=== PATIENT | male | born 1975 | race Caucasian/White ===

== ENCOUNTER 2018-12-27 17:48 | Inpatient (IN) ==
[2018-12-27] MEDS ORDERED: NS 1,000 ML IV ONE (18:32)
[2018-12-27] MEDS ORDERED: ROCEPHIN 1 GM in NS 50 ML IV ONE (18:33)
[2018-12-27 19:08] LABS: BASO# 0.01 X1000 (0.0-0.2); BASO% 0.1 % (0.0-0.8); HEMATOCRIT 47.5 % (42.0-52.0); HEMOGLOBIN 16.8 g/dL (14.0-18.0); IMM GRAN% 0.5 % (0.0-0.5); LYMPH# 0.43 X1000 (1.2-3.4); LYMPH% 2.2 % (20.5-51.1); MCH 28.2 PG (27-31); MCHC 35.4 g/dL (33-37); MCV 79.7 FL (81-99); MONO% 8.2 % (1.7-9.3); MPV 12.3 FL (7.4-10.4); PLT 182 X1000 (130-400); RBC 5.96 XMIL (4.7-6.1); RDW 14.2 % (11.5-14.5); WBC 19.54 X1000 (4.8-10.8)
[2018-12-27] MEDS ORDERED: VANCOMYCIN 1 GM/NS 1 GM/250 ML IVPB IV ONE (19:18)
[2018-12-27 19:33] LABS: AGAP 15; ALBUMIN 3.7 g/dL (3.5-5.0); ALKALINE PHOSPHATASE 70 U/L (32-122); BUN 18 mg/dL (8-22); CALCIUM 9.5 mg/dL (8.8-10.2); CHLORIDE 99 mmol/L (98-107); COSMO 271; CREATININE 1.3 mg/dL (0.7-1.2); ESTIMATED GFR > 60; GLUCOSE 144 mg/dL (70-104); GOT 15 U/L (10-34); GPT 14 U/L (10-44); POTASSIUM 3.9 mmol/L (3.5-5.1); SODIUM 133 mmol/L (136-145); TCO2 19 mmol/L (25-35); TOTAL BILIRUBIN 0.99 mg/dL (0.20-1.00); TOTAL PROTEIN 7.5 g/dL (6.3-8.3)
[2018-12-27 20:55] LABS: URINE SOURCE CATH
[2018-12-27] MEDS ORDERED: MORPHINE IV ONE (21:01)
[2018-12-27 21:10] LABS: BILIRUBIN URINE NEGATIVE (NEGATIVE); CLARITY TURBID (CLEAR); COLOR GREEN; GLUCOSE URINE NEGATIVE (NEGATIVE); KETONE URINE NEGATIVE (NEGATIVE); URINE BACTERIA 3+ /HFP; URINE EPITHELIAL CELLS <10 /HPF (<10); URINE RBC TNTC /HPF (<10); URINE WBC TNTC /HPF (<10)
[2018-12-27 21:11] LABS: BLOOD URINE LARGE (NEGATIVE); SP GRAVITY URINE 1.015
[2018-12-27 21:12] LABS: LEUKOCYTES URINE LARGE (NEGATIVE); NITRITE URINE NEGATIVE (NEGATIVE); PROTEIN URINE >=300 mg/dL (NEGATIVE); UROBILINOGEN URINE 0.2 EU/dL (0.2-1.0)
--- NOTE | 2018-12-27 22:17 | HISTORY AND PHYSICAL ---
PRIMARY CARE PROVIDER: Dr. Dominick Guillaume. UROLOGIST: Dr. Chang Marquez. CHIEF COMPLAINT: Urinary leakage from suprapubic catheter. Fever and chills. HISTORY OF PRESENT ILLNESS: Mr. Maloney is a 43-year-old male with a history of neurogenic bladder secondary to severe rheumatoid arthritis. He states he had his catheter changed yesterday by Dr. Marquez because of leakage. He went home, he took a nap, and when he woke up, there was nothing in his bag but he was leaking from the insertion site. He states that he had an infection yesterday. He was not given any antibiotics for it. Today he had a low-grade fever of 100.7 degrees with some chills. The ED replaced his suprapubic catheter again and started him on IV antibiotics. His urinalysis is currently pending. His white count is elevated at 19. He does have a slight kidney injury with a creatinine of 1.3. We will admit him overnight for observation status, consult Dr. Marquez in the a.m., and continue with IV antibiotics. PAST MEDICAL HISTORY: 1. Severe rheumatoid arthritis in the past that caused his neurogenic bladder. 2. Neurogenic bladder. 3. Recurrent urinary tract infections. 4. Urinary retention. PAST SURGICAL HISTORY: 1. Shockwave lithotripsy. 2. Endoscopic exams with ureteroscopic and laser lithotripsy of stones. 3. Placement of suprapubic tubes x2. 4. Tonsillectomy. 5. Adenoidectomy. 6. [place] teeth extraction x2. SOCIAL HISTORY: He lives with his family. No tobacco, alcohol, or illicit drug use. PHYSICAL EXAMINATION: VITAL SIGNS: Initial vital signs taken at 1750: Temperature was 98.2 degrees, heart rate 130, respirations 18, blood pressure 106/69. O2 was 94% on room air. He does not have any other documented vital signs. GENERAL: Mr. Maloney is a frail-appearing, 43-year-old male who is lying on the stretcher, in no acute distress. HEENT: Atraumatic, normocephalic. PERRL. NECK: Supple. Trachea midline. CARDIOVASCULAR: S1, S2 appreciated. No murmurs, gallops, or rubs noted. RESPIRATORY: Lung sounds clear bilaterally. GASTROINTESTINAL: Abdomen is flat, soft, nontender. Positive bowel sounds 4 quadrants. GENITOURINARY: Indwelling urethral catheter. NEUROLOGIC: No focal deficits noted. DIAGNOSTIC DATA: None. LABORATORY DATA: White count 19, hemoglobin 16, hematocrit 47, platelet count 182,000. Sodium 133, potassium 3.9, BUN 18, creatinine 1.3, blood glucose of 144. Plasma lactate 1.8. ASSESSMENT AND PLAN: 1. Catheter-associated urinary tract infection. We will continue with IV antibiotics. 2. Malfunctioning suprapubic catheter. It was leaking from the insertion site. His tube was changed yesterday at Dr. Marquez' office. 3. MONICA secondary to malfunctioning catheter continue with hydration recheck labs in am. 4. Mild hyponatremia 4. Severe rheumatoid arthritis that caused neurogenic bladder. Aware. 5. Recurrent urinary tract infections and urinary retention. Aware. 6. Further recommendation to follow physician evaluation, laboratory and diagnostic data. Dictated by MOHAMUD Edmondson for Rafy Lee MD I have performed a face to face diagnostic evaluation. Labs/ Xrays- reviewed. Exam- chest clear, - suprapubic catheter leaking. A/P- Suprapubic catheter malfunction. UTI- Admit, IV abx, urology consult. Dr. Lee cc: MD Chang Alexis MD MTDD
[2018-12-27] MEDS ORDERED: ZOFRAN IV PRN (22:48)
[2018-12-27] MEDS ORDERED: TYLENOL PO PRN (22:48)
[2018-12-27] MEDS ORDERED: NORCO-7.5 PO PRN (22:48)
[2018-12-27] MEDS ORDERED: NS 1,000 ML IV SCH (22:48)
[2018-12-27] MEDS: LEVAQUIN 500 MG/D5W 500 MG/100 ML IVPB IV SCH (23:38)
[2018-12-27] MEDS: MYRBETRIQ E.R. PO SCH (23:58)
[2018-12-28] MEDS ORDERED: CALMOSEPTINE OINTMENT TOP PRN (00:57)
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
[2018-12-28 06:56] LABS: BASO# 0.01 X1000 (0.0-0.2); BASO% 0.1 % (0.0-0.8); EOS# 0.06 X1000 (0.0-0.7); EOS% 0.4 % (0.0-10.0); HEMATOCRIT 43.1 % (42.0-52.0); HEMOGLOBIN 15.2 g/dL (14.0-18.0); IMM GRAN# 0.02 X1000 (0.0-0.04); IMM GRAN% 0.1 % (0.0-0.5); LYMPH# 0.55 X1000 (1.2-3.4); LYMPH% 4.1 % (20.5-51.1); MCH 28.6 PG (27-31); MCHC 35.3 g/dL (33-37); MCV 81.2 FL (81-99); MONO# 0.97 X1000 (0.11-0.59); MONO% 7.2 % (1.7-9.3); MPV 12.5 FL (7.4-10.4); NEUT# 11.77 X1000 (1.4-6.5); NEUT% 88.1 % (42.2-75.2); PLT 160 X1000 (130-400); RBC 5.31 XMIL (4.7-6.1); RDW 14.2 % (11.5-14.5); WBC 13.38 X1000 (4.8-10.8)
[2018-12-28 07:13] LABS: AGAP 10; BUN 14 mg/dL (8-22); CALCIUM 8.5 mg/dL (8.8-10.2); CHLORIDE 102 mmol/L (98-107); COSMO 267; CREATININE 0.9 mg/dL (0.7-1.2); ESTIMATED GFR > 60; GLUCOSE 97 mg/dL (70-104); POTASSIUM 3.6 mmol/L (3.5-5.1); SODIUM 133 mmol/L (136-145); TCO2 21 mmol/L (25-35)
[2018-12-28 07:44] LABS: LYMPHS 2 % (21-51); MONO 12 % (1-9); SEGS 86 % (42-75)
[2018-12-28] MEDS: ZANAFLEX PO SCH ×3 (08:16→21:57)
[2018-12-28] MEDS: PRINIVIL PO SCH (08:16)
[2018-12-28] MEDS: LAMICTAL PO SCH (08:16)
[2018-12-28] MEDS: CALMOSEPTINE OINTMENT TOP SCH ×2 (09:00→13:00)
[2018-12-28] MEDS: UROGESIC-BLUE PO SCH (10:00)
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
--- NOTE | 2018-12-28 13:26 | Diag Imaging Result Doc PS360 ---
MRI BRAIN W/O CONTRAST - 12/28/2018 INDICATION: Upper motor neuron signs in lower extremities COMPARISON: None FINDINGS: There is no area of restricted diffusion. The ventricles and sulci are normal in size and contour. No intracranial mass or hemorrhage. Midline structures including the optic chiasm and pituitary are normal. IMPRESSION: Negative exam. Electronically signed by Nicola Gerard 12/28/2018 1:23 PM
[2018-12-28] MEDS: MERREM 500 MG in NS 50 ML IV SCH ×2 (15:20→23:29)
--- NOTE | 2018-12-28 20:23 | CONSULTATION ---
DATE OF CONSULTATION: 12/28/2018 ATTENDING AND REFERRING PHYSICIAN: Soha. HISTORY OF PRESENT ILLNESS: This 43-year-old male was admitted with a febrile urinary tract infection. He has a long history of a neurologic problem that he states is due to severe rheumatoid arthritis. He states he was told this by a physician in [place], [place]. The patient initially wore a Evans catheter, but this eroded through the ventral penile shaft to cause iatrogenic hypospadias. He had a suprapubic tube placed several years ago, and has been undergoing monthly exchanges. It was last changed yesterday and irrigated without difficulty after the change, and was draining when he left the office. The patient states he went to sleep and when he woke up, he was having discomfort in the pelvic area and the catheter was not draining. He states he developed a fever to 102 degrees. He was seen in the emergency room and was admitted. The patient's urine culture is pending. His preliminary blood culture is growing gram-negative rods. The patient was started on IV antibiotics and states he feels much better. The patient had a CT scan several months ago that revealed small bilateral nonobstructing renal stones and 2 stones in the bladder. He was going to be scheduled for stone removal. PAST MEDICAL HISTORY: 1. Severe rheumatoid arthritis by history. 2. Neurogenic bladder, with severe urge incontinence. 3. Recurrent urinary infections. CURRENT MEDICATIONS: Include: 1. Baclofen. 2. Oxybutynin. PAST SURGICAL HISTORY: 1. Extracorporeal shockwave lithotripsy. 2. Cystoscopic exam with ureteroscopy and basket extraction of stones. 3. Placement of a suprapubic tube x2. 4. Tonsillectomy. 5. [place] teeth extraction. SOCIAL HISTORY: No tobacco or alcohol use. ALLERGIES: None. REVIEW OF SYSTEMS: He denies any problems with heart disease, hypertension, diabetes, strokes, seizures, pulmonary, or bowel problems. PHYSICAL EXAMINATION: General: A very thin, age apparent, normally developed, white male, oriented in all ways and cooperative. HEENT: Normal for age. Lungs: Clear. Cardiovascular: Regular rate and rhythm. Abdomen: Flat, soft, nontender. No hepatosplenomegaly or mass. Normal bowel sounds. Well healed scars in the midline above the pubic bone. Suprapubic tube in place and appears to be draining. Genitourinary: Circumcised male with distal shaft hypospadias. Both testes down and palpably normal. There are no inguinal hernias. Rectal: Exam is deferred until surgery. Extremities: Lower extremities with bilateral muscular atrophy. No cyanosis, clubbing, or edema. Neurologic: He currently cannot walk, but can move his extremities. LABORATORY EVALUATION: He has a white count of 13.38, down from 19.5, hemoglobin is 15.2, hematocrit 43.1, and platelets are 160,000. Serum sodium is 133, potassium 3.6, chloride 102, bicarb 21, BUN 14, creatinine 0.9. Urine culture is pending. Blood culture is growing a gram- negative david. IMPRESSION: 1. Neurogenic bladder. 2. Indwelling suprapubic tube that appears to be draining at present; however, it is a 14-Portuguese tube. 3. Bladder stones. 4. Small bilateral nonobstructing kidney stones. 5. Febrile urinary tract infection, with gram-negative david bacteremia. PLAN: 1. Cystoscopic exam to ensure the suprapubic tube in place, and replace the 14-Portuguese tube with an 18-Portuguese catheter. 2. Cystolitholapaxy (remove bladder stones). This was discussed with the patient. The planned procedure, benefits versus risks, possible complications including bleeding, infection, need for further surgery, and not being able to remove the bladder stones were discussed. He seems to understand and desires to proceed. He understands that myself or Dr. Hopkins will do the procedure. cc: Chang Marquez MD
[2018-12-28] MEDS: LEVAQUIN 500 MG/D5W 500 MG/100 ML IVPB IV SCH (21:57)
[2018-12-28] MEDS: MYRBETRIQ E.R. PO SCH (21:57)
[2018-12-29] MEDS: CALMOSEPTINE OINTMENT TOP SCH ×4 (03:16→17:27)
[2018-12-29] MEDS: MERREM 500 MG in NS 50 ML IV SCH (06:00)
[2018-12-29 07:01] LABS: BASO# 0.02 X1000 (0.0-0.2); BASO% 0.3 % (0.0-0.8); EOS# 0.11 X1000 (0.0-0.7); EOS% 1.5 % (0.0-10.0); HEMATOCRIT 41.2 % (42.0-52.0); HEMOGLOBIN 14.4 g/dL (14.0-18.0); IMM GRAN# 0.02 X1000 (0.0-0.04); IMM GRAN% 0.3 % (0.0-0.5); LYMPH# 0.93 X1000 (1.2-3.4); LYMPH% 12.4 % (20.5-51.1); MCH 28.7 PG (27-31); MCV 82.2 FL (81-99); MONO# 0.73 X1000 (0.11-0.59); MONO% 9.8 % (1.7-9.3); MPV 12.1 FL (7.4-10.4); NEUT# 5.67 X1000 (1.4-6.5); NEUT% 75.7 % (42.2-75.2); PLT 137 X1000 (130-400); RBC 5.01 XMIL (4.7-6.1); RDW 14.2 % (11.5-14.5); WBC 7.48 X1000 (4.8-10.8)
[2018-12-29 08:02] LABS: AGAP 9; ALBUMIN 2.7 g/dL (3.5-5.0); BUN 11 mg/dL (8-22); CALCIUM 8.4 mg/dL (8.8-10.2); CHLORIDE 100 mmol/L (98-107); COSMO 259; CREATININE 0.8 mg/dL (0.7-1.2); ESTIMATED GFR > 60; GLUCOSE 82 mg/dL (70-104); PHOSPHORUS 1.7 mg/dL (2.7-4.5); POTASSIUM 3.5 mmol/L (3.5-5.1); SODIUM 130 mmol/L (136-145); TCO2 21 mmol/L (25-35)
[2018-12-29] MEDS ORDERED: ROCEPHIN 1 GM in NS 50 ML IV SCH (08:15)
[2018-12-29] MEDS: LAMICTAL PO SCH ×2 (09:38→10:12)
[2018-12-29] MEDS: ROCEPHIN 2 GM in NS 50 ML IV SCH (10:11)
[2018-12-29] MEDS: UROGESIC-BLUE PO SCH (10:12)
[2018-12-29] MEDS: PRINIVIL PO SCH (10:12)
[2018-12-29] MEDS: ZANAFLEX PO SCH ×3 (10:12→20:36)
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
[2018-12-29] MEDS ORDERED: FENTANYL ONE (10:32)
[2018-12-29] MEDS ORDERED: DIPRIVAN 1% ONE (10:32)
[2018-12-29] MEDS ORDERED: VERSED ONE (11:01)
[2018-12-29] MEDS ORDERED: XYLOCAINE-MPF 2% ONE (11:17)
[2018-12-29] MEDS ORDERED: NEO-SYNEPHRINE ONE (11:17)
[2018-12-29] MEDS ORDERED: DEMEROL ONE (12:09)
--- NOTE | 2018-12-29 13:37 | Diag Imaging Result Doc PS360 ---
EXAM: RETROGRADES 2 OR 3 FILMS 12/29/2018 HISTORY: BILATERAL RETROGRADES, BLADDER STONE TECHNIQUE: Retrograde pyelogram 15 images, 14 seconds fluoroscopy time, 0.14 mGy. COMMENT: There is retrograde injection of both ureters. There is no evidence of obstruction or filling defect. Both sides appear to drain appropriately. IMPRESSION: No evidence of obstruction or mucosal abnormality. Electronically signed by Moshe Hunt 12/29/2018 1:35 PM
[2018-12-29] MEDS: MYRBETRIQ E.R. PO SCH (20:35)
--- NOTE | 2018-12-30 00:02 | OPERATIVE NOTE ---
PROCEDURE DATE: 12/29/2018 PREOPERATIVE DIAGNOSES: 1. Urinary tract infection. 2. Malfunctioning suprapubic tube. 3. Bladder stones POSTOPERATIVE DIAGNOSES: 1. Urinary tract infection. 2. Malfunctioning suprapubic tube. 3. Bladder stones PROCEDURES PERFORMED: 1. Cystoscopy 2. Cystolitholapaxy 3. Bilateral retrograde pyelograms 4. Exchange of suprapubic tube. SURGEON: Joseluis Hopkins MD. MACHINE OPERATOR REPLANTER: None. COMPLICATIONS: None. ESTIMATED BLOOD LOSS: Minimal. DRAINS: An 18-Namibian suprapubic tube. SPECIMENS REMOVED: Bladder stones. INDICATIONS FOR PROCEDURE: Mr. Maloney is a 43-year-old male with history of rheumatoid arthritis which has led to a neurogenic bladder. The patient has been managed by Dr. Marquez with indwelling suprapubic tube. The patient had his catheter exchanged this week and did not have any drainage from the catheter after placement. The patient developed abdominal distention and pain and presented to the emergency room for evaluation, at which time his suprapubic tube was exchanged for a smaller catheter. The patient was found to have an elevated white blood cell count with a urinalysis that was positive for bacteria. The patient is admitted to the hospital for IV antibiotics, and blood and urine cultures have grown bacteria. In discussion with the patient it was recommend to procedure to the operating room to remove bladder stones that were seen on previous CT scan and to exchange his suprapubic tube. Risks, benefits, and alternatives were discussed with the patient, he elected to proceed. DESCRIPTION OF PROCEDURE: The patient patient was brought to the operating room. He underwent general anesthesia with LMA placement and was on appropriate culture specific antibiotics. Patient was placed into a dorsal lithotomy position and prepped and draped in appropriate fashion. A preop timeout was performed with all parties in agreement. On external inspection, patient had a hypospadiac appearance of his urethra with glanular hypospadias. A 21F cystourethroscope was inserted and showed normal caliber urethra. In the penile and bulbar urethra there was significant inflammation and what almost appeared like a false passage, was able to transverse and posterior urethra was normal. Patient had a small prostate and on advancement of the scope transversed easily all the way up into the bladder itself. The entirety of the bladder was inspected with a large amount of sediment present, there was a bullous edema and both ureteral orifices were very difficult to see. The bladder was cycled multiple times, stone was able to be seen within the base of the bladder, only 1 stone was visualized initially. Multiple diverticulum and cellules were seen. Ultimately the residual stones were seen within a diverticulum on the right portion of the bladder. The suprapubic tube was seen coming through the anterior bladder surface with the balloon inflated. The patient has been having good drainage through the catheter the last several days. After inspecting the bladder multiple times, a 500 micron fiber was then passed through the scope and the stones were then fragmented into small pieces and extracted through the scope as well as with the use of a Janet syringe. Once all the stone fragments were removed, attention was then placed to performing bilateral retrograde pyelogram. Starting on the left the ureteral orifice was able to be visualized, and the open- ended catheter was able to be advanced into the left ureteral orifice. This was injected with Omnipaque which outlined a normal ureter with no evidence of obstruction, and a decompressed collecting system with delicate calyces. The open-ended catheter was removed and good drainage was seen from the collecting system. Attention was then placed to the right side. Due to the patient's anatomy an abnormal appearance of the right ureteral orifice, it was difficult to cannulate with the open-ended catheter alone. Ultimately a wire was used through the scope and able to cannulate the right ureteral orifice and the open-ended catheter was passed over the wire into the UO. Omnipaque was then injected which outlined a normal ureter with no evidence of obstruction or filling defect. The catheter was removed and good drainage was seen from the collecting system. There were some erythematous areas present at the top portion of the bladder on the posterior wall, these appeared to be related to infection. No obvious papillary lesions were seen in the bladder. After inspection of the bladder, attention was placed to exchanging the suprapubic. The 14-Namibian catheter was deflated and removed, and a new 18- Namibian catheter was easily inserted into the bladder with good drainage. I then performed cystoscopy to ensure that it was present within the bladder itself, at which time the balloon was present on the anterior wall with good drainage seen through the catheter itself, it was placed to gravity drainage. The patient's bladder was completely drained. The patient was awoken and was taken to recovery in stable condition. He will be transferred back to the floor. cc: Joseluis Hopkins MD MTDD
[2018-12-30 06:30] LABS: BASO# 0.01 X1000 (0.0-0.2); BASO% 0.2 % (0.0-0.8); EOS# 0.09 X1000 (0.0-0.7); EOS% 1.7 % (0.0-10.0); HEMATOCRIT 41.1 % (42.0-52.0); HEMOGLOBIN 14.7 g/dL (14.0-18.0); LYMPH# 1.14 X1000 (1.2-3.4); MCH 28.8 PG (27-31); MCHC 35.8 g/dL (33-37); MCV 80.4 FL (81-99); MONO# 0.48 X1000 (0.11-0.59); MONO% 8.8 % (1.7-9.3); MPV 11.9 FL (7.4-10.4); NEUT# 3.71 X1000 (1.4-6.5); NEUT% 68.3 % (42.2-75.2); PLT 170 X1000 (130-400); RBC 5.11 XMIL (4.7-6.1); WBC 5.43 X1000 (4.8-10.8)
[2018-12-30 06:58] LABS: AGAP 12; ALB/GLOB RATIO 0.8; ALKALINE PHOSPHATASE 73 U/L (32-122); BUN 6 mg/dL (8-22); CALCIUM 8.8 mg/dL (8.8-10.2); CHLORIDE 99 mmol/L (98-107); COSMO 264; CREATININE 0.7 mg/dL (0.7-1.2); ESTIMATED GFR > 60; GLUCOSE 93 mg/dL (70-104); GOT 22 U/L (10-34); GPT 20 U/L (10-44); POTASSIUM 3.4 mmol/L (3.5-5.1); SODIUM 133 mmol/L (136-145); TCO2 22 mmol/L (25-35); TOTAL BILIRUBIN 0.65 mg/dL (0.20-1.00); TOTAL PROTEIN 6.7 g/dL (6.3-8.3)
[2018-12-30] MEDS: UROGESIC-BLUE PO SCH (08:34)
[2018-12-30] MEDS: ZANAFLEX PO SCH (08:34)
[2018-12-30] MEDS: ROCEPHIN 2 GM in NS 50 ML IV SCH ×2 (08:34→10:21)
[2018-12-30] MEDS: LAMICTAL PO SCH (08:34)
[2018-12-30] MEDS: PRINIVIL PO SCH (08:34)
[2018-12-30] MEDS: CALMOSEPTINE OINTMENT TOP SCH ×2 (08:43→13:30)
[2018-12-30] MEDS ORDERED: LEVAQUIN PO SCH (09:00)
[2018-12-30 11:55] VITALS: BP 99/56
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
== END 2018-12-30 16:00 | disposition home health service (06) | DRG 698 ==
LOC: ED 17:48 → 4N 17:48 → SUATTDRO 21:50
PROVIDERS: ATTEND Internal Medicine
CPT/HCPCS: 70551; 74420; 80048; 80053; 80069; 81001; 82306; 82360; 83605; 85025; 87040; 87077; 87088; 87186; 88300; 94761; 94799; 96365; 96367; 96375; 99285; A9270; J0696; J1956; J2175; J2185; J2250; J2270; J2370; J3010; J3370; J7030; Q9966; Q9967

== ENCOUNTER 2019-07-11 16:21 | Inpatient (IN) ==
[2019-07-11] MEDS ORDERED: ZOFRAN LIQUID PO ONE (16:27)
[2019-07-11] MEDS ORDERED: ZOFRAN IM ONE (16:27)
[2019-07-11] MEDS ORDERED: NS 1,000 ML IV ONE ×4 (16:27→19:50)
[2019-07-11] MEDS ORDERED: ZOFRAN IV ONE (16:42)
[2019-07-11 16:55] LABS: BE -0.3 mmoll (-3.0-3.0); BLOOD TYPE ARTERIAL; HCO3-(ACT) 24.5 mmoll (20.0-26.0); METHB 1.3 % (0.0-1.5); O2(CT) 23.2 mL/dL (15.0-23.0); O2HB 93.7 % (95.0-99.0); PCO2(98.6) 25 mmHg (35-45); PO2(98.6) 76 mmHg (60-100); SAMPLE BLOOD; SAO2 98.5 % (95.0-100.0); THB 17.6 g/dL (11.5-17.4); pH(98.6) 7.52 (7.35-7.45)
[2019-07-11 16:57] LABS: ALLEN TEST YES; MODALITY CANNULA
[2019-07-11 17:12] LABS: BASO# 0.01 X1000 (0.0-0.2); BASO% 0.5 % (0.0-0.8); EOS# 0.03 X1000 (0.0-0.7); EOS% 1.4 % (0.0-10.0); HEMATOCRIT 49.1 % (42.0-52.0); HEMOGLOBIN 16.4 g/dL (14.0-18.0); LYMPH# 0.48 X1000 (1.2-3.4); LYMPH% 22.5 % (20.5-51.1); MCH 28.5 PG (27-31); MCHC 33.4 g/dL (33-37); MCV 85.4 FL (81-99); MONO# 0.04 X1000 (0.11-0.59); MONO% 1.9 % (1.7-9.3); MPV 12.1 FL (7.4-10.4); NEUT# 1.57 X1000 (1.4-6.5); NEUT% 73.7 % (42.2-75.2); PLT 138 X1000 (130-400); RBC 5.75 XMIL (4.7-6.1); RDW 14.2 % (11.5-14.5); WBC 2.13 X1000 (4.8-10.8)
[2019-07-11 17:26] LABS: AGAP 14; ALBUMIN 4.5 g/dL (3.5-5.0); ALKALINE PHOSPHATASE 77 U/L (32-122); BUN 11 mg/dL (8-22); CALCIUM 10.2 mg/dL (8.8-10.2); CHLORIDE 102 mmol/L (98-107); CK PROFILE 122 U/L (24-204); COSMO 280; CREATININE 1.3 mg/dL (0.7-1.2); ESTIMATED GFR > 60; GLUCOSE 95 mg/dL (70-104); GOT 15 U/L (10-34); GPT 13 U/L (10-44); LIPASE 30 U/L (13-60); MAGNESIUM 1.2 mg/dL (1.5-2.7); POTASSIUM 4.5 mmol/L (3.5-5.1); SODIUM 141 mmol/L (136-145); TCO2 25 mmol/L (25-35)
--- NOTE | 2019-07-11 17:34 | Diag Imaging Result Doc PS360 ---
CHEST-PORTABLE - 07/11/2019 INDICATION: SOB COMPARISON: None FINDINGS: There are extensive bilateral fine interstitial infiltrates. Heart size and pulmonary vascularity is normal. No pneumothorax or pleural effusion. IMPRESSION: Extensive atypical infiltrates. This may be infectious, inflammatory, or due to an inhaled exposure. Electronically signed by Nicola Gerard 07/11/2019 5:32 PM
--- NOTE | 2019-07-11 17:35 | Diag Imaging Result Doc PS360 ---
KUB ABDOMEN - 07/11/2019 INDICATION: N/V COMPARISON: None FINDINGS: There is a nonobstructive bowel gas pattern. No free air or abdominal calcifications. IMPRESSION: No acute disease. Electronically signed by Nicola Gerard 07/11/2019 5:32 PM
[2019-07-11] MEDS ORDERED: MAGNESIUM SULFATE 1 GM/D5W 1 GM/100 ML IVPB IV ONE (17:44)
[2019-07-11] MEDS ORDERED: NS 1,000 ML ONE (17:50)
[2019-07-11] MEDS ORDERED: VANCOMYCIN 1 GM/NS 1 GM/250 ML IVPB IV ONE (18:07)
[2019-07-11] MEDS ORDERED: MAXIPIME 2 GM in NS 100 ML IV ONE (18:07)
[2019-07-11] MEDS ORDERED: TYLENOL PO ONE (18:10)
[2019-07-11 18:20] LABS: INFLUENZA A NEGATIVE (NEGATIVE); INFLUENZA B NEGATIVE (NEGATIVE)
[2019-07-11 18:31] LABS: INR 1.06; PROTIME 14.4 Seconds (11.0-16.0)
[2019-07-11 18:32] LABS: PTT 28.2 Seconds (22.3-41.8)
--- NOTE | 2019-07-11 18:57 | EKG Report ---
Test Performed on : 07/11/2019 5:33:49 PM Test Reason : CP Blood Pressure : / mmHG Vent. Rate : 122 BPM Atrial Rate : 122 BPM P-R Int : 126 ms QRS Dur : 088 ms QT Int : 292 ms P-R-T Axes : 062 -18 060 degrees QTc Int : 416 ms Sinus tachycardia. Otherwise normal ECG When compared with ECG of 22-SEP-2018 14:27, Vent. rate has increased BY 50 BPM Unconfirmed Result
--- NOTE | 2019-07-11 19:32 | Diag Imaging Result Doc PS360 ---
CT ANGIOGRM PULMONARY ARTERIES - 07/11/2019 INDICATION: SUDDENT SOB/NO WBC/ELEVATED LACTATE/CXR WITH EXTEN TECHNIQUE: Axial CT images were obtained after administering intravenous contrast. Coronal MIP images were generated. COMPARISON: Previous chest x-ray FINDINGS: There is no adenopathy. Heart and great vessels are normal. No pulmonary embolism. Upper abdominal images are grossly unremarkable. There are severe diffuse bilateral infiltrates. No pneumothorax or pleural effusion. Bones are intact. IMPRESSION: Negative for pulmonary embolism. Extensive bilateral infiltrates are indeterminate. These are compatible with severe pneumonia, pulmonary edema, inflammatory disease, or inhalational exposure. This exam was performed using automated exposure control, adjustment of mA or kV according to patient size, and/or use of iterative reconstruction technique Electronically signed by Nicola Gerard 07/11/2019 7:29 PM
--- NOTE | 2019-07-11 19:47 | PROVIDER DOCUMENTATION ---
This chart was entered by Veronica Tran Scribe, acting as scribe for Alesha Chadwick MD. HPI-Respiratory General - General Chief Complaint: SEPSIS ALERT - P Stated Complaint: SOB Time Seen by Provider: 07/11/19 16:24 Source: patient, EMS (first response) Allergies/Adverse Reactions: Patient Allergies Allergy/AdvReac Type Severity Reaction Status Date / Time No Known Allergies Allergy Verified 12/27/18 19:03 Home Medications: Home Medication List Medication Instructions Recorded Confirmed Last Taken Type Lamotrigine 25 mg PO QAM 07/28/15 12/27/18 12/27/18 History Mirabegron [Myrbetriq] 50 mg PO HS 08/19/15 12/27/18 12/26/18 History LISINOpril [Prinivil] 5 mg PO DAILY 09/22/18 12/27/18 12/27/18 History Methen/Na Phos/Meth Blue/Hyos 1 each PO DAILY 09/22/18 12/27/18 12/27/18 History [Urogesic-Blue] Tizanidine HCl 6 mg PO TID 09/22/18 12/27/18 12/27/18 History Cephalexin [Keflex] 500 mg PO BID #20 cap 12/30/18 Unknown Rx Levofloxacin [Levaquin] 250 mg PO DAILY #7 tab 12/30/18 Unknown Rx Cephalexin [Keflex] 500 mg PO BID #14 cap 05/04/19 Unknown Rx Prednisone 20 mg PO DIRECTED #18 tab 05/04/19 Unknown Rx - History of Present Illness-Resp Nature of Presenting Problem: 43 yowm presents to the ed via ems with c/o sob, tremors, nausea and vomiting acute onset 1 hr LUM[employer] HAND[employer]. pt is pale and diaphoretic and looks ill in appeaance Quality of Pain: reports: aching Severity in ED: reports: moderate Onset/Duration: reports: 1 hour ago Timing: reports: still present, constant Exposure: reports: unknown cause Cough Quality/Degree: reports: no cough Episode Frequency: occasional episodes Current Respiratory Medication Therapy: Initiated see nurses note Modifying Factors: worse with: exertion Associated Symptoms: reports: fever/chills (denies fever but has chhills), shortness of breath, sweaty, other (n/v). denies: chest pain/soreness, cough, dizziness, wheezing Similar Symptoms Previously?: Yes Recently seen or treated by another doctor?: No Review of Systems - Adult - REVIEW OF SYSTEMS - ADULT Constitutional: reports: see HPI, chills. denies: fever Eyes: reports: no symptoms reported Ears, Nose, Mouth & Throat: reports: no symptoms reported Cardiovascular: denies: chest pain, palpitations, syncope Respiratory: reports: shortness of breath. denies: cough, wheezing Gastrointestinal: reports: nausea, vomiting. denies: abdominal pain, diarrhea Genitourinary: reports: no symptoms reported Musculoskeletal: denies: back pain, neck pain Integumentary: reports: no symptoms reported Neurological: denies: dizziness/vertigo, headache/migraines Psychiatric: reports: no symptoms reported Endocrine: reports: no symptoms reported Hematologic/Lymphatic: reports: no symptoms reported Allergic/Immunologic: reports: no symptoms reported All Other Systems: Reviewed and Negative Past History - Adult - PAST MEDICAL HISTORY-ADULT Review of Records: reports: Old Records Reviewed, Nursing Assessment Review, Medications Reviewed, Social history reviewed & non-contributory. Major Childhood Illnesses: reports: denies history Cardiovascular: reports: HTN Respiratory: reports: denies history Obstetrical/Gynecological: reports: denies history Genitourinary: reports: kidney stones, other (indwelling zambrano cath) Musculoskeletal: reports: arthritis, other (RA ) Hand Dominance: Right Handed Neurological: reports: other (tremors) Psychiatric: reports: denies history Endocrine/Immune: reports: denies history Other Conditions: reports: denies history - PRIOR SURGERIES/PROCEDURES Surgical/Procedure History: reports: other ( surgery to repair traumatic cath) - IMMUNIZATION STATUS Childhood Immunizations: See Nurse Assessment Flu Vaccine: See Nurse Assessment - FAMILY HISTORY Family History: reviewed, not pertinent - SOCIAL HISTORY Smoking: cigarettes, less than 1 pack/day Provider spent 3-5 mins advising pt. on dangers of tobacco.: Discussed manners to quit use, and f/u contacts for add'l counseling. Substance Use: alcohol Alcohol Use Frequency: occasionally Number of drinks per typical drinking period:: 3-4 drinks Living Situation: family Physical Exam-General - PHYSICAL EXAM-ADULT Initial Vital Signs Reviewed: Yes - CONSTITUTIONAL General Appearance: alert, mild distress. negative: appears well (ill a ppearaing) - EYES Eyes: PERRL/EOMI, pink conjunctivae - HEAD, EARS, NOSE, MOUTH & THROAT HENMT: moist mucous membranes, normal ENT inspection - NECK Neck: non-tender, full range of motion, supple, normal inspection - RESPIRATORY Respiratory: chest non-tender, lungs clear, normal breath sounds, increased rate (24). negative: crackles, rales, rhonchi - CARDIOVASCULAR Cardiovascular: normal peripheral pulses, tachycardia (137), other (o2 @ 92 RA) - CHEST (BREASTS) Chest/Breast: deferred - GASTROINTESTINAL (ABDOMEN) Abdominal Exam: normal bowel sounds, non tender, soft, other (c/o nausea) - GENITOURINARY Male Genitalia: deferred Rectal Exam: deferred Hemoccult Exam: deferred - LYMPHATIC Lymphatic: no adenopathy - MUSCULOSKELETAL Back Exam: normal inspection, no CVA tenderness, no vertebral tenderness Extremity: normal range of motion, non-tender, normal inspection - SKIN Integumentary: diaphoresis, pallor - NEUROLOGIC Neurologic: grossly normal, other (tremor) - PSYCHIATRIC Psych/Mental Status: normal mood/affect, normal thought content, normal thought process, oriented x 3 Progress - PLAN OF CARE/RESULTS Progress/Plan/Lab Results: Vital Signs - 8 hr 07/11/19 16:15 07/11/19 16:23 07/11/19 18:09 Temperature 99.6 F 103.2 F H Pulse Rate 137 H Respiratory Rate 24 Blood Pressure 121/74 O2 Sat by Pulse Oximetry 96 92 L 07/11/19 18:44 07/11/19 19:13 Temperature 99.3 F Pulse Rate 119 H Respiratory Rate 23 Blood Pressure 107/58 O2 Sat by Pulse Oximetry 89 L 96 Laboratory Results - last 24 hr 07/11/19 07/11/19 07/11/19 16:35 16:50 16:50 WBC RBC Hgb Hct MCV MCH MCHC RDW Std Deviation Plt Count MPV Immature Gran % (Auto) Neut % (Auto) Lymph % (Auto) Turner % (Auto) Eos % (Auto) Baso % (Auto) Immature Gran # (Auto) Neut # (Auto) Lymph # (Auto) Turner # (Auto) Eos # (Auto) Baso # (Auto) PT INR PTT (Actin FS) D-Dimer, Quantitative > 20.00 H Specimen Type ARTERIAL Sample Site L RADIAL pH 7.52 H pCO2 25 L pO2 76 HCO3 24.5 Base Excess -0.3 Oxyhemoglobin 93.7 L ABG O2 Sat (Calculated) 23.2 H ABG O2 Saturation 98.5 ABG Carboxyhemoglobin 3.60 H ABG Methemoglobin 1.3 Zhang Test YES A-a O2 Difference 121.0 Total Hemoglobin 17.6 H Lactate 2.60 H Liter Flow 3.0 Blood Gas Modality CANNULA FiO2 % 32.0 Sodium Potassium Chloride Carbon Dioxide Anion Gap BUN Creatinine Estimated GFR/1.73 m2 BUN/Creatinine Ratio Glucose Calculated Osmolality Calcium Magnesium Total Bilirubin AST ALT Alkaline Phosphatase Creatine Kinase Troponin T Total Protein Albumin Globulin Albumin/Globulin Ratio Amylase 32 Lipase Plasma Lactate Influenza A (Rapid) Influenza B (Rapid) 07/11/19 07/11/19 07/11/19 16:50 16:50 16:50 WBC 2.13 L RBC 5.75 Hgb 16.4 Hct 49.1 MCV 85.4 MCH 28.5 MCHC 33.4 RDW Std Deviation 14.2 Plt Count 138 MPV 12.1 H Immature Gran % (Auto) 0.0 Neut % (Auto) 73.7 Lymph % (Auto) 22.5 Turner % (Auto) 1.9 Eos % (Auto) 1.4 Baso % (Auto) 0.5 Immature Gran # (Auto) 0.00 Neut # (Auto) 1.57 Lymph # (Auto) 0.48 L Turner # (Auto) 0.04 L Eos # (Auto) 0.03 Baso # (Auto) 0.01 PT 14.4 INR 1.06 PTT (Actin FS) 28.2 D-Dimer, Quantitative Specimen Type Sample Site pH pCO2 pO2 HCO3 Base Excess Oxyhemoglobin ABG O2 Sat (Calculated) ABG O2 Saturation ABG Carboxyhemoglobin ABG Methemoglobin Zhang Test A-a O2 Difference Total Hemoglobin Lactate Liter Flow Blood Gas Modality FiO2 % Sodium 141 Potassium 4.5 Chloride 102 Carbon Dioxide 25 Anion Gap 14 BUN 11 Creatinine 1.3 H Estimated GFR/1.73 m2 > 60 BUN/Creatinine Ratio 8 Glucose 95 Calculated Osmolality 280 Calcium 10.2 Magnesium 1.2 L Total Bilirubin 1.00 AST 15 ALT 13 Alkaline Phosphatase 77 Creatine Kinase 122 Troponin T Total Protein 7.0 Albumin 4.5 Globulin 3.0 Albumin/Globulin Ratio 2.0 Amylase Lipase 30 Plasma Lactate Influenza A (Rapid) Influenza B (Rapid) 07/11/19 07/11/19 07/11/19 16:50 16:50 17:22 WBC RBC Hgb Hct MCV MCH MCHC RDW Std Deviation Plt Count MPV Immature Gran % (Auto) Neut % (Auto) Lymph % (Auto) Turner % (Auto) Eos % (Auto) Baso % (Auto) Immature Gran # (Auto) Neut # (Auto) Lymph # (Auto) Turner # (Auto) Eos # (Auto) Baso # (Auto) PT INR PTT (Actin FS) D-Dimer, Quantitative Specimen Type Sample Site pH pCO2 pO2 HCO3 Base Excess Oxyhemoglobin ABG O2 Sat (Calculated) ABG O2 Saturation ABG Carboxyhemoglobin ABG Methemoglobin Zhang Test A-a O2 Difference Total Hemoglobin Lactate Liter Flow Blood Gas Modality FiO2 % Sodium Potassium Chloride Carbon Dioxide Anion Gap BUN Creatinine Estimated GFR/1.73 m2 BUN/Creatinine Ratio Glucose Calculated Osmolality Calcium Magnesium Total Bilirubin AST ALT Alkaline Phosphatase Creatine Kinase Troponin T < 0.010 Total Protein Albumin Globulin Albumin/Globulin Ratio Amylase Lipase Plasma Lactate 3.3 H Influenza A (Rapid) NEGATIVE Influenza B (Rapid) NEGATIVE Orders Category Date Time Status Cardiac Monitoring DIRECTED Care 07/11/19 16:32 Active IV Insertion ORDERED Care 07/11/19 16:32 Completed Notify MD of + Sepsis Screen NOW Care 07/11/19 16:32 Active Notify Physician As Ordered Care 07/11/19 16:32 Active Nursing- Obtain EKG ONCE Care 07/11/19 16:29 Active NPO Diet 07/11/19 Diet Enter Time Active CHEST-PORTABLE [RAD] Stat Exams 07/11/19 16:[address] ANGIOGRM PULMONARY ARTERIES [CT] Stat Exams 07/11/19 17:56 Completed KUB ABDOMEN [RAD] Stat Exams 07/11/19 16:27 Completed ABG [RESP] Routine Lab 07/11/19 16:35 Completed ABG [RESP] Stat Lab 07/11/19 19:44 Ordered AMYLASE [CHEM] Stat Lab 07/11/19 16:50 Completed BLOOD CULTURE [BLDCUL] Stat Lab 07/11/19 17:01 Ordered CBC WITH ELECTRONIC DIFF [HEME] Stat Lab 07/11/19 16:50 Completed CK PROFILE [SP CHEM] Stat Lab 07/11/19 16:50 Completed COMPREHENSIVE METABOLIC PANEL [CHEM] Stat Lab 07/11/19 16:50 Completed D-DIMER [COAG] Stat Lab 07/11/19 16:[address] Stat Lab 07/11/19 17:22 Completed LACTATE, PLASMA [CHEM] Lab 07/11/19 16:50 Completed LACTATE, PLASMA [CHEM] Lab 07/11/19 19:45 Uncollected LACTATE, PLASMA [CHEM] Lab 07/11/19 22:45 Uncollected LIPASE [CHEM] Stat Lab 07/11/19 16:50 Completed MAGNESIUM [CHEM] Stat Lab 07/11/19 16:50 Completed PROTIME WITH INR [COAG] Stat Lab 07/11/19 16:50 Completed PTT [COAG] Stat Lab 07/11/19 16:50 Completed TROPONIN T Stat Lab 07/11/19 16:[address] W/POSS RFLX CULT [URINALYSIS] Stat Lab 07/11/19 16:32 Uncollected 0.9% Sodium Chloride Inj [Ns] 1,000 ml Med 07/11/19 17:50 Discontinued .ROUTE As directed 0.9% Sodium Chloride Inj [Ns] 1,000 ml Med 07/11/19 16:27 Discontinued IV 999 mls/hr 0.9% Sodium Chloride Inj [Ns] 1,000 ml Med 07/11/19 17:55 Discontinued IV 999 mls/hr 0.9% Sodium Chloride Inj [Ns] 1,000 ml Med 07/11/19 17:59 Discontinued IV 999 mls/hr Acetaminophen [Tylenol] Med 07/11/19 18:10 Discontinued 650 mg PO NOW ONE CefEPIME [Maxipime] 2 gm Med 07/11/19 18:07 Discontinued 0.9% Sodium Chloride Inj [Ns] 100 ml IV NOW Magnesium Sulfate 1 gm/D5w Med 07/11/19 17:44 Discontinued 1 gm in 100 ml IV NOW Ondansetron [Zofran Liquid] Med 07/11/19 16:27 Discontinued 4 mg PO NOW ONE Ondansetron [Zofran] Med 07/11/19 16:27 Discontinued 4 mg IM NOW ONE Ondansetron [Zofran] Med 07/11/19 16:42 Discontinued 4 mg IV NOW ONE Vancomycin 1 gm/Ns Med 07/11/19 18:07 Discontinued 1 gm in 250 ml IV NOW Oxygen Device Stat Oth 07/11/19 16:32 Active EKG [EKG] Stat Ther 11/12/19 16:29 Draft Result Diagrams: 07/11/19 16:50 07/11/19 16:50 - REASSESSMENT Reassessment #1 Time Reassessed: 16:50 Status: unchanged (dr chadwick at bedside speaking with pt) Reassessment #2 Time Reassessed: 17:59 Status: unchanged (EXTENSIVE PULMONARY INFILTRATION AND TACHYCARDIA; NO WBC; PATIENT DENIES PRODUCTIVE COUGH, DENIES SMOKING/VAPING. BLOOD PRESSURE SOFTING; WILL GIVE ADDITIONAL BOLUS AND OBTAIN CTPA STATE TO R/O PE WELL EVALUATION PULMONARY INFILTRATION. WILL START ANTIBIOTIC ONCE PATIENT RETURNS FROM CT) Reassessment #3 Time Reassessed: 18:10 Status: other (I WAS JUST INFORMED BY RN THAT RECHECK OF VITALS; PATIENT HAS A NEW ELEVATED TEMPERATURE. I AM STARTING VANCOMYCIN AND CEFEPIME IMMEDIATELY. STILL PENDING CTPA. I HAVE INFORMED RN TO FOLLOW SEPSIS PROTOCOL. BOLUS FLUID AND START ANTIBITOIC IMMEIDATELY. IT WAS ALSO BROUGHT TO MY ATTENTION THAT ABG REVEALSCARBOXYHEMOGLBOIN EEVATED; DURING MY REEVALUATION WITH PATIENT AND FATHER WHO LIVES TOGETHER, THEY DO USE GAS STOVE; PER THEM, FATHER HAS BEEN SITTING OUTSIDE OF [place] WHILE SON WAS INSIDE SLEEPING. WILL GIVE 100% OXYGEN BY NONREBREATHING FACE MASK AND RECHECK ABG LATER.) Reassessment #4 Time Reassessed: 19:45 Status: other (SPOKE TO HOSPITALIST; PNA W/ PNA AND CO CURRENTLY STABLE WITHOUT PRESSOR AND CAN GO ONTO THE FLOOR. WILL CONTINUE ANTIOBIOTICS, HIGHFLOW OX AND NS AT 100CC/HR.) - EKG 1 Time of EKG reading by physician:: 17:33 EKG Read and Signed by:: Alesha Chadwick EKG Interpretation (*Must complete 3 of following elements*): Normal Rate: 122 Rhythm: sinus tachycardia [place]: normal QRS: normal UT Interval: normal ST Wave: normal - XRAY 1 XRAY: Bilateral XRAY Study: Abdomen Impression: See EMR Report (KUB ABDOMEN - 07/11/2019 INDICATION: N/V COMPARISON: None FINDINGS: There is a nonobstructive bowel gas pattern. No free air or abdominal calcifications. IMPRESSION: No acute disease. Electronically signed by Nicola Gerard 07/11/2019 5:32 PM 07/11/19 [id number] Interpreting Physician: Nicola Gerard MD Dictated Date/Time: 07/11/191731 cc: Alesha Chadwick MD;) 2 XRAY: Bilateral XRAY Study: Chest Impression: See EMR Report (CHEST-PORTABLE - 07/11/2019 INDICATION: SOB COMPARISON: None FINDINGS: There are extensive bilateral fine interstitial infiltrates. Heart size and pulmonary vascularity is normal. No pneumothorax or pleural effusion. IMPRESSION: Extensive atypical infiltrates. This may be infectious, inflammatory, or due to an inhaled exposure. Electronically signed by Nicola Gerard 07/11/2019 5:32 PM 07/11/191731 Interpreting Physician: Nicola Gerard MD Dictated Date/Time: 07/11/191730 cc: Alesha Chadwick MD;) Departure - Departure Date of Disposition Decision: 07/11/19 Time of Disposition Decision: 19:46 DIAGNOSIS: Sepsis associated hypotension, Pneumonia, Carbon monoxide exposure, Hypomagnesemia Disposition: ADMITTED INPATIENT 09 Certified Medical Emergency: Emergent Condition: Critical Referrals and Follow-Ups: None,PCP [Primary Care Provider] - - Critical Care Note This patient required my direct & personal management of CC.: Yes Total Time (mins): 37 Critical Care Statement: This patient required my direct personal management to treat or rule out processes, the absence of which, could potentiallly result in sudden, clinically significant life or limb threatening deterioration. Attestation - Physician/ NE Attestation Patient care was provided by Advanced Practice Provider:: No The physician spent face to face time with patient:: Yes Advanced Practice Provider documentation review:: Supervising physician onsite and consulted in the evaluation and care of this patient. The physician did have a face to face encounter with the patient. This chart was documented by the indicated scribe, (Veronica Tran Scribe) and accurately reflects the services I performed and decisions made by me, Alesha Chadwick MD, as attested by the provider's signature.
[2019-07-11 20:34] LABS: BE -6.8 mmoll (-3.0-3.0); BLOOD TYPE ARTERIAL; HCO3-(ACT) 19.5 mmoll (20.0-26.0); METHB 1.5 % (0.0-1.5); O2(CT) 20.6 mL/dL (15.0-23.0); O2HB 94.5 % (95.0-99.0); PCO2(98.6) 26 mmHg (35-45); PO2(98.6) 81 mmHg (60-100); SAMPLE BLOOD; SAO2 98.5 % (95.0-100.0); THB 15.5 g/dL (11.5-17.4)
[2019-07-11 20:36] LABS: ALLEN TEST YES; MODALITY NRB
[2019-07-12] MEDS ORDERED: MELATONIN PO ONE (00:22)
[2019-07-12 00:40] LABS: BLOOD TYPE ARTERIAL; SAMPLE BLOOD
[2019-07-12 00:45] LABS: BE -5.3 mmoll (-3.0-3.0); HCO3-(ACT) 20.7 mmoll (20.0-26.0); METHB 1.7 % (0.0-1.5); O2(CT) 20.6 mL/dL (15.0-23.0); O2HB 95.5 % (95.0-99.0); PCO2(98.6) 27 mmHg (35-45); PO2(98.6) 129 mmHg (60-100); SAO2 99.3 % (95.0-100.0); THB 15.2 g/dL (11.5-17.4); pH(98.6) 7.42 (7.35-7.45)
[2019-07-12 00:47] LABS: ALLEN TEST YES; MODALITY NRB
[2019-07-12 01:33] LABS: BILIRUBIN URINE NEGATIVE (NEGATIVE); BLOOD URINE 4+ (NEGATIVE); CLARITY BLOODY (CLEAR); COLOR RED; GLUCOSE URINE NEGATIVE (NEGATIVE); KETONE URINE TRACE mg/dL (NEGATIVE); LEUKOCYTES URINE TRACE (NEGATIVE); NITRITE URINE NEGATIVE (NEGATIVE); UROBILINOGEN URINE NORMAL
[2019-07-12 01:34] LABS: URINE SOURCE CATH
[2019-07-12 01:36] LABS: URINE BACTERIA 1+ /HFP; URINE EPITHELIAL CELLS <10 /HPF (<10); URINE RBC TNTC /HPF (<10); URINE WBC <10 /HPF (<10)
[2019-07-12] MEDS ORDERED: ZOFRAN IV PRN ×3 (04:32→08:51)
[2019-07-12 04:47] LABS: BASO# 0.02 X1000 (0.0-0.2); BASO% 0.1 % (0.0-0.8); HEMATOCRIT 41.7 % (42.0-52.0); HEMOGLOBIN 13.6 g/dL (14.0-18.0); IMM GRAN# 0.33 X1000 (0.0-0.04); IMM GRAN% 1.6 % (0.0-0.5); LYMPH# 0.35 X1000 (1.2-3.4); LYMPH% 1.6 % (20.5-51.1); MCH 27.9 PG (27-31); MCHC 32.6 g/dL (33-37); MCV 85.6 FL (81-99); MONO% 5.6 % (1.7-9.3); MPV 11.5 FL (7.4-10.4); NEUT# 19.36 X1000 (1.4-6.5); NEUT% 91.1 % (42.2-75.2); PLT 127 X1000 (130-400); RBC 4.87 XMIL (4.7-6.1); RDW 14.5 % (11.5-14.5); WBC 21.26 X1000 (4.8-10.8)
[2019-07-12] MEDS ORDERED: NS 1,000 ML IV SCH (07:45)
[2019-07-12] MEDS ORDERED: FLU VACCINE IM ONE (08:00)
[2019-07-12] MEDS ORDERED: VANCOMYCIN IV PER PHARMACY MISC SCH (08:30)
[2019-07-12] MEDS ORDERED: MAXIPIME 2 GM in NS 100 ML IV SCH (08:30)
[2019-07-12] MEDS: MAXIPIME 2 GM in NS 100 ML IV SCH ×2 (10:26→22:09)
[2019-07-12] MEDS: VANCOMYCIN 1.5 GM in NS 250 ML IV SCH (12:55)
[2019-07-12] MEDS ORDERED: IMODIUM PO PRN (13:45)
[2019-07-12] MEDS: NS 1,000 ML IV SCH ×2 (14:51→21:54)
[2019-07-12] MEDS ORDERED: DUONEB (A & A) INH PRN (14:54)
--- NOTE | 2019-07-12 15:12 | PROGRESS NOTE ---
DATE: 07/12/2019 SUBJECTIVE: The patient has no major complaints. He seems to be doing okay. He does have a lot of bloody discharge from his suprapubic catheter, but it is draining and with flushing, it seems to be doing okay. PROBLEM LIST: 1. Pneumonia. We will continue empiric antibiotics. There is a possibility this is not pneumonia, could be inflammatory disease. He does have rheumatoid arthritis, but it is perhaps not related to that but we will continue antibiotics, pulmonary toilet, and follow. 2. Hematuria with an indwelling suprapubic catheter. Urology has been consulted. We will continue to follow. We are going to continue to flush, hold any anti-platelet treatments, and continue to monitor closely. Obviously, hold any DVT prophylaxis and follow. DISPOSITION: Pending clinical status. He looks pretty well. I think he could probably be moved to the stepdown soon. cc: Tj Branch MD
[2019-07-12] MEDS: DUONEB (A & A) INH SCH ×2 (15:38→22:25)
[2019-07-12] MEDS: ZANAFLEX PO SCH (18:15)
--- NOTE | 2019-07-12 18:49 | CONSULTATION ---
DATE OF CONSULTATION: 07/12/2019 ATTENDING AND REFERRING PHYSICIAN: Marckist. HISTORY OF PRESENT ILLNESS: This 43-year-old male has a history of a neurogenic bladder with neurological problems. He states that yesterday he tried to take a nap but soon developed severe shortness of breath. He states he could feel like he could breathe out but he could not breathe in. He also noted hematuria from his suprapubic tube. He was seen in the emergency room where a pulmonary angiogram did not reveal any pulmonary emboli but the radiologist stated that this was consistent with pneumonia, edema, inflammatory disease, or inhalational exposure. The patient currently states he is feeling better. He states he has a long history of neurologic problems and he can barely walk at this time. He states this is due to severe rheumatoid arthritis. He initially wore a Evans catheter but this eroded through the ventral penile shaft to cause iatrogenic hypospadias. His suprapubic tube was placed several years ago. He undergoes monthly changes of the tube and was last changed several weeks ago. The patient states his catheter was irrigated last evening and there were no clots that he saw. He has a history of bladder stones and underwent cystolitholapaxy in December of 2018. The patient is currently being treated with IV cefepime. PAST MEDICAL HISTORY: 1. Severe rheumatoid arthritis. 2. Neurogenic bladder with urgency. 3. Recurrent urinary tract infections. CURRENT MEDICATIONS: Include baclofen, oxybutynin, and currently cefepime. PAST SURGICAL HISTORY: 1. Extracorporeal shockwave lithotripsy. 2. Cystoscopic exam with ureteroscopy and basket extraction of stones. 3. Cystoscopic exam with cystolitholapaxy. 4. Placement of a suprapubic tube x2. 5. Tonsillectomy. 6. Craig teeth extraction. SOCIAL HISTORY: No tobacco or alcohol use. He lives with his father. ALLERGIES: No known drug allergies. REVIEW OF SYSTEMS: He states usually he is in good health. He denies any problems with heart disease, hypertension, diabetes, strokes, seizures, pulmonary, or bowel problems. PHYSICAL EXAMINATION: Vital signs: Temperature at admission was 103, currently 98. Vital signs are stable, but he is tachycardic. General: A thin, age-apparent, normally-developed, white male, oriented in all ways, and cooperative. HEENT: Normal for age. Lungs: Clear. Cardiovascular: Regular rate and rhythm. Abdomen: Flat, soft, nontender. No hepatosplenomegaly or masses. Normal bowel sounds. Well healed scars in the midline above the pubic bone, consistent with previous suprapubic tube placement. Currently suprapubic tube in place, draining burgundy colored urine. Genitourinary: Circumcised male with distal shaft hypospadias. Both testes down and palpably normal. No inguinal hernias. Rectal: Deferred. Extremities: Lower extremities with bilateral muscular atrophy. No cyanosis, clubbing, or edema. Neurologic: He can move his extremities but cannot walk. LABORATORY EVALUATION: He has a white count of 21.26, hemoglobin of 13.6, hematocrit of 41.7, platelets are 127,000. Serum electrolytes are normal. BUN 11, creatinine 1.3. Pulmonary angiogram is as noted in the HPI. IMPRESSIONS: 1. Pulmonary problems with as noted in the impression of the CT angiogram, pneumonia, edema, inflammatory disease, or inhalational exposure. 2. Neurogenic bladder with indwelling suprapubic tube. 3. Hematuria that started after his pulmonary problems. 4. Possible hemorrhagic cystitis. PLAN: 1. Recommend continue IV antibiotics. 2. Irrigate suprapubic tube with sterile saline until clear. Thank you for this consultation. cc: Chang Marquez MD
[2019-07-12] MEDS ORDERED: NS 1,000 ML IV ONE (20:15)
[2019-07-12] MEDS ORDERED: LEVOPHED 8 MG in D5 1/2 NS 250 ML IV SCH (20:15)
--- NOTE | 2019-07-12 21:51 | HISTORY AND PHYSICAL ---
ADDENDUM: Patient seen and examined by myself. Full note dictated and discussed with nurse practitioner. The patient has been having issues with suprapubic catheter. He has been having blood in the urine. He presented to the hospital with increased work of breathing and shortness of breath. CT did not demonstrate any pulmonary emboli or any definitive infiltrate. Certainly could be due to exposure. Unfortunately, his blood pressures have remained low, in the 80s and 90s systolic. We are going to transfer him to [facility] to the ICU so he could be monitored more closely, continue him on antibiotics, and will follow. cc: Nathan Delgado MD
[2019-07-13] MEDS: TYLENOL PO PRN (02:28)
[2019-07-13] MEDS: SOLU-MEDROL IV SCH ×4 (02:28→17:16)
[2019-07-13] MEDS: DUONEB (A & A) INH SCH ×4 (03:48→21:26)
[2019-07-13] MEDS: NS 1,000 ML IV SCH ×2 (05:06→15:34)
[2019-07-13 05:18] LABS: ALLEN TEST YES; BE -3.9 mmoll (-3.0-3.0); BLOOD TYPE ARTERIAL; HCO3-(ACT) 21.8 mmoll (20.0-26.0); METHB 1.5 % (0.0-1.5); O2HB 94.7 % (95.0-99.0); PCO2(98.6) 29 mmHg (35-45); PO2(98.6) 77 mmHg (60-100); SAMPLE BLOOD; SAO2 98.3 % (95.0-100.0); THB 13.5 g/dL (11.5-17.4); pH(98.6) 7.43 (7.35-7.45)
[2019-07-13 05:19] LABS: BASO# 0.02 X1000 (0.0-0.2); BASO% 0.1 % (0.0-0.8); HEMATOCRIT 38.3 % (42.0-52.0); IMM GRAN# 1.03 X1000 (0.0-0.04); IMM GRAN% 6.5 % (0.0-0.5); LYMPH# 0.41 X1000 (1.2-3.4); LYMPH% 2.6 % (20.5-51.1); MCH 28.8 PG (27-31); MCHC 33.9 g/dL (33-37); MCV 84.9 FL (81-99); MONO# 0.54 X1000 (0.11-0.59); MONO% 3.4 % (1.7-9.3); MPV 12.7 FL (7.4-10.4); NEUT# 13.76 X1000 (1.4-6.5); NEUT% 87.4 % (42.2-75.2); PLT 98 X1000 (130-400); RBC 4.51 XMIL (4.7-6.1); RDW 14.2 % (11.5-14.5); WBC 15.76 X1000 (4.8-10.8)
[2019-07-13 05:19] LABS: MODALITY CANNULA
[2019-07-13 05:36] LABS: AGAP 13; ALBUMIN 2.5 g/dL (3.5-5.0); ALKALINE PHOSPHATASE 54 U/L (32-122); BUN 12 mg/dL (8-22); CALCIUM 7.7 mg/dL (8.8-10.2); CHLORIDE 107 mmol/L (98-107); COSMO 276; CREATININE 0.9 mg/dL (0.7-1.2); ESTIMATED GFR > 60; GLUCOSE 103 mg/dL (70-104); GOT 56 U/L (10-34); GPT 41 U/L (10-44); MAGNESIUM 1.4 mg/dL (1.5-2.7); PHOSPHORUS 1.6 mg/dL (2.7-4.5); POTASSIUM 3.5 mmol/L (3.5-5.1); SODIUM 138 mmol/L (136-145); TCO2 18 mmol/L (25-35); TOTAL BILIRUBIN 0.92 mg/dL (0.20-1.00); TOTAL PROTEIN 5.1 g/dL (6.3-8.3)
[2019-07-13] MEDS: PRILOSEC PO SCH ×2 (05:36→08:16)
[2019-07-13 05:41] LABS: LYMPHS 6 % (21-51); MONO 4 % (1-9); SEGS 90 % (42-75)
--- NOTE | 2019-07-13 07:33 | Diag Imaging Result Doc PS360 ---
EXAM: CHEST-PORTABLE INDICATION: abnormal exam TECHNIQUE: One view COMPARISON: 07/11/2019 FINDINGS: Extensive bilateral mixed interstitial and airspace opacities have worsened during the interval. This could represent ARDS. Cardiac silhouette is stable. IMPRESSION: Interval worsening of diffuse bilateral consolidations. Electronically signed by Marcel Mayes 07/13/2019 7:30 AM
--- NOTE | 2019-07-13 07:51 | PULMONOLOGY CONSULTATION ---
DATE: 07/12/2019 REQUESTING CLINICIAN: Dr. Alexandre Branch. REASON FOR CONSULTATION: Hypoxia, pneumonia versus inhalation injury. HISTORY OF PRESENT ILLNESS: Mr. Maloney is a 43-year-old white male with limited mobility due to severe rheumatoid arthritis. The patient vomited 2 days ago and had a high fever. The patient presented to the emergency room and chest x-ray revealed diffuse interstitial infiltrates. A CT pulmonary angiogram was performed which revealed extensive interstitial infiltrates bilaterally with no evidence of pulmonary embolism. He denies recent travel. He denies tobacco. He is a poor historian. He is currently on no drugs for rheumatoid arthritis. He cannot remember having medications for his rheumatoid arthritis. He has not been seen by cemetery warden in over 2 years. He has difficulty walking and also has difficulty with muscle spasticity. He has a neurogenic bladder with a suprapubic catheter in position. He developed some blood clots and hematuria prior to this admission. Urine culture reveals blood but no significant leukocytosis. PAST MEDICAL HISTORY: 1. Rheumatoid arthritis without recent evaluation per above. 2. Difficulty with ambulation and muscle spasticity. 3. Suprapubic catheter with recurrent urinary tract stones. 4. Status post tonsillectomy 5. Status post wisdom tooth extraction. SOCIAL HISTORY: The patient denies tobacco or alcohol use. FAMILY HISTORY: Noncontributory to current presentation. PHYSICAL EXAMINATION: General: Reveals a chronically ill-appearing male, resting comfortably and in no distress. Vital Signs: Maximum temperature in the last 24 hours is 103.2 degrees. Current temperature 98.8 degrees. HEENT: Pupils are equal and reactive. Oropharynx is clear. Neck: Supple. Chest: Reveals faint crackles bilaterally. Cardiac: S1-S2. Abdomen: Soft with suprapubic catheter draining clear fluid. Extremities: Without edema. LABORATORY DATA: White blood count yesterday evening was 2.3. White blood count today was 21.26 thousand, hemoglobin 13.6, platelet count 137,000. Sodium 141, potassium 4.5, chloride 25, BUN 11, creatinine 1.3, magnesium 1.2. IMPRESSION: Interesting 43-year-old male with 1. Bilateral pneumonia. 2. Acute hypoxemic respiratory failure. 3. Rheumatoid arthritis. 4. Suprapubic catheter with hematuria. DISCUSSION: A 43-year-old with problems outlined above. The patient's infiltrates most likely are related to infection or underlying rheumatoid arthritis. His leukopenia followed by leukocytosis makes me favor an acute infectious process. Influenza is negative. RECOMMENDATIONS: 1. Continue broad-spectrum antibiotics. Would add atypical coverage with doxycycline. 2. Continue expanding gram-negative coverage. 3. Continue volume resuscitation. 4. We will initiate steroids. cc: Jesus Haines MD
[2019-07-13] MEDS: ZANAFLEX PO SCH ×4 (08:15→17:15)
[2019-07-13] MEDS: LAMICTAL PO SCH (08:15)
[2019-07-13] MEDS: MAXIPIME 2 GM in NS 100 ML IV SCH ×2 (09:41→21:51)
--- NOTE | 2019-07-13 10:31 | PROGRESS NOTE ---
DATE: 07/13/2019 SUBJECTIVE: Patient reports breathing better. His white cell count is getting better. No fever or chills. According to nursing staff, there is definitely less hematuria noted. OBJECTIVE: Vital Signs: Temperature 98.4 degrees, heart rate 92, respiratory rate 17, blood pressure 102/57, O2 saturation 92% on 4 L nasal cannula. General: This is a chronically ill- appearing 43-year-old male, lying in bed, in no acute distress. Cardiovascular: S1, S2 heard. No murmurs, gallops, or rubs. Regular rate and rhythm. Respiratory: Minimal coarse breath sounds noted in both pulmonary bases. No wheezing noted. Minimal rhonchi. The patient is not using any accessory muscles or having work of breathing. Abdomen: Soft. Nontender to palpation. Bowel sounds present. No organomegaly. There is a suprapubic catheter noted with some hematuria. Neurological: Patient is alert and oriented x3. ASSESSMENT: 1. Acute hypoxemic respiratory failure. 2. Bilateral pneumonia. 3. Hematuria with indwelling suprapubic catheter. PLAN: At this point, patient is on antibiotics. Currently he is on cefepime on vancomycin. He has been started on methylprednisolone 40 mg IV q.8 hours. We will continue with the same management. For hematuria, Urology has been consulted and they recommended irrigate suprapubic tube with sterile saline. That is getting better. The patient has history of neurogenic bladder. DISPOSITION: The patient's x-ray from this morning showed interval worsening of diffuse bilateral consolidation. That could represent ARDS. At this point, I prefer to see if Dr. Haines agrees to send this patient to our [facility] or not. We will see what he has to say. cc: Serge Morgan MD [facility]
[2019-07-13] MEDS: DOXYCYCLINE 100 MG in NS 250 ML IV SCH ×3 (11:50→23:09)
[2019-07-13] MEDS: VANCOMYCIN 1.5 GM in NS 250 ML IV SCH (13:19)
[2019-07-13] MEDS ORDERED: STERILE WATER INJ. ONE ×2 (13:55→14:03)
[2019-07-14] MEDS ORDERED: MELATONIN PO ONE (00:22)
[2019-07-14] MEDS: DUONEB (A & A) INH SCH ×4 (03:14→22:03)
--- NOTE | 2019-07-14 04:09 | PULMONOLOGY PROGRESS NOTE ---
DATE: 07/13/2019 SUBJECTIVE: The patient is awake, alert, and conversant. He reports he feels better today. He is eating without difficulty. OBJECTIVE: The patient has been afebrile for the last 24 hours. Blood pressure 99/67, heart rate 79, respiratory rate 17, and oxygen saturation 92% on 4 L per nasal cannula.HEENT: Pupils are equal and reactive. Oropharynx appears clear. Neck: Supple. Lungs: Chest reveals coarse rhonchi bilaterally. Cardiac: S1, S2. Abdomen: Soft. Extremities: Without edema. LABORATORIES: Chest x-ray reveals increased interstitial infiltrates bilaterally. Microbiology reveals 2 blood cultures positive for gram-negative rods. White blood count 15.76, hemoglobin 13.3, and platelet count 98,000. Arterial blood gas, pH 7.43, pCO2 of 29, and PO2 of 77. IMPRESSION: A 43-year-old with: 1. Acute hypoxemic respiratory failure. 2. Gram-negative bacteremia. 3. Acute lung injury. 4. Rheumatoid arthritis. 5. Suprapubic catheter with prior hematuria earlier this admission. DISCUSSION: A 43-year-old with problems outlined above. Now, that his cultures are positive for gram-negative rods, I suspect a component of his lung infiltrates are related to acute lung injury associated with the septicemia. RECOMMENDATIONS: 1. Continue gram-negative coverage. 2. Consider consolidating antibiotics once organism is identified. 3. Begin steroid reduction. 4. Wean oxygen as tolerated. cc: Jesus Haines MD
[2019-07-14 05:19] LABS: ALLEN TEST YES; BE -3.7 mmoll (-3.0-3.0); BLOOD TYPE ARTERIAL; HCO3-(ACT) 21.9 mmoll (20.0-26.0); METHB 0.9 % (0.0-1.5); O2(CT) 16.4 mL/dL (15.0-23.0); O2HB 92.7 % (95.0-99.0); PCO2(98.6) 34 mmHg (35-45); PO2(98.6) 61 mmHg (60-100); SAMPLE BLOOD; SAO2 96.5 % (95.0-100.0); THB 12.6 g/dL (11.5-17.4); pH(98.6) 7.39 (7.35-7.45)
[2019-07-14 05:20] LABS: MODALITY CANNULA
[2019-07-14] MEDS: PRILOSEC PO SCH ×2 (05:55→06:40)
[2019-07-14] MEDS: SOLU-MEDROL IV SCH (05:55)
[2019-07-14 06:05] LABS: HEMATOCRIT 37.9 % (42.0-52.0); HEMOGLOBIN 13.2 g/dL (14.0-18.0); MCH 29.2 PG (27-31); MCHC 34.8 g/dL (33-37); MCV 83.8 FL (81-99); MPV 12.6 FL (7.4-10.4); RBC 4.52 XMIL (4.7-6.1); RDW 14.2 % (11.5-14.5); WBC 17.55 X1000 (4.8-10.8)
[2019-07-14 06:59] LABS: AGAP 14; ALBUMIN 2.8 g/dL (3.5-5.0); ALKALINE PHOSPHATASE 68 U/L (32-122); BUN 9 mg/dL (8-22); CALCIUM 8.6 mg/dL (8.8-10.2); CHLORIDE 107 mmol/L (98-107); COSMO 282; CREATININE 0.8 mg/dL (0.7-1.2); ESTIMATED GFR > 60; GLUCOSE 175 mg/dL (70-104); GOT 41 U/L (10-34); GPT 42 U/L (10-44); MAGNESIUM 1.7 mg/dL (1.5-2.7); POTASSIUM 3.1 mmol/L (3.5-5.1); SODIUM 140 mmol/L (136-145); TCO2 19 mmol/L (25-35); TOTAL BILIRUBIN 0.47 mg/dL (0.20-1.00); TOTAL PROTEIN 5.5 g/dL (6.3-8.3)
[2019-07-14 07:00] LABS: PHOSPHORUS 0.9 mg/dL (2.7-4.5)
--- NOTE | 2019-07-14 07:44 | Diag Imaging Result Doc PS360 ---
EXAM: CHEST-PORTABLE INDICATION: abnormal exam TECHNIQUE: One view COMPARISON: 07/13/2019 FINDINGS: Extensive diffuse interstitial and airspace opacities throughout both lungs are again identified and are grossly unchanged. No new consolidation is identified. Cardiac silhouette is stable. IMPRESSION: Stable chest. Electronically signed by Marcel Mayes 07/14/2019 7:42 AM
[2019-07-14] MEDS ORDERED: VANCOMYCIN 1.5 GM in NS 250 ML IV SCH (08:00)
[2019-07-14] MEDS: LAMICTAL PO SCH (08:20)
[2019-07-14] MEDS: ZANAFLEX PO SCH ×3 (08:21→21:33)
[2019-07-14] MEDS: NS 1,000 ML IV SCH ×2 (08:25→21:34)
[2019-07-14] MEDS ORDERED: SODIUM PHOSPHATE 40 MMOL in NS 250 ML IV ONE (09:30)
[2019-07-14] MEDS: MAXIPIME 2 GM in NS 100 ML IV SCH (09:33)
[2019-07-14] MEDS ORDERED: POTASSIUM CHLORIDE 60 MEQ in NS 500 ML IV ONE (10:03)
[2019-07-14] MEDS: NEUTRA-PHOS PO SCH ×4 (10:38→21:33)
[2019-07-14] MEDS: ROCEPHIN 2 GM in NS 50 ML IV SCH (11:10)
--- NOTE | 2019-07-14 13:02 | PROGRESS NOTE ---
DATE: 07/14/2019 SUBJECTIVE: Patient reports breathing better. Denies any fever or chills. No other complaints noted as per nursing staff overnight. OBJECTIVE: Vital Signs: Temperature 98.3 degrees, heart rate 85, respiratory rate 17, blood pressure 113/72, O2 saturation 92% on 4 L nasal cannula. General Examination: This is a chronically ill-looking, 43-year-old, male, lying in bed, in no acute distress. Cardiovascular Examination: S1 and S2 heard. No murmurs, gallops, or rubs. Regular rate and rhythm. Respiratory Examination: Minimal coarse breath sounds noted in both pulmonary bases. No wheezing noted. Minimal rhonchi is noted. Patient is not using any accessory muscles or having work of breathing. Abdomen: Soft, nontender to palpation. Bowel sounds present. No organomegaly. There is a suprapubic catheter noted with still some hematuria. Neurological Examination: The patient is alert and oriented x3. Laboratory Data: White cell count 17.55, hemoglobin 13.2, hematocrit 37.9, platelets 106,000. ABG that shows pH of 7.39, with pCO2 of 34, PO2 of 61. BMP shows potassium 3.1, phosphorus 0.9, and calcium 8.6. ASSESSMENT: 1. Acute hypoxemic respiratory failure secondary to bilateral pneumonia. 2. Hematuria with indwelling suprapubic catheter. 3. Escherichia coli bacteremia. 4. Acute lung injury. 5. Rheumatoid arthritis. 6. Suprapubic catheter with prior hematuria. PLAN: At this point, the patient clinically feels better. His white cell count is getting higher though. He is not spiking any fever. Considering his bacteremia, there is a blood culture positive from July 11. We are going to repeat blood cultures today. We are going to change antibiotics to ceftriaxone 2 g IV every 24 hours. Regarding hematuria with indwelling suprapubic catheter, urology has been consulted and they recommend continuing to irrigate through the Evans tube with sterile saline. The patient has this catheter because of his history of neurogenic bladder. We have checked an x-ray from today that basically shows the same findings. At this point, we will continue with ceftriaxone. We will continue to monitor this patient closely. cc: MD KELVIN Hernández
[2019-07-14] MEDS: MELATONIN PO SCH (21:33)
[2019-07-14] MEDS: TYLENOL PO PRN (23:04)
[2019-07-15] MEDS: DUONEB (A & A) INH SCH ×4 (03:10→21:42)
[2019-07-15] MEDS: PRILOSEC PO SCH (06:06)
[2019-07-15] MEDS: TYLENOL PO PRN ×2 (06:43→22:12)
[2019-07-15 07:03] LABS: BASO# 0.01 X1000 (0.0-0.2); BASO% 0.1 % (0.0-0.8); HEMOGLOBIN 12.9 g/dL (14.0-18.0); IMM GRAN# 0.14 X1000 (0.0-0.04); IMM GRAN% 0.9 % (0.0-0.5); LYMPH% 6.5 % (20.5-51.1); MCH 28.7 PG (27-31); MCHC 34.9 g/dL (33-37); MCV 82.2 FL (81-99); MONO# 0.58 X1000 (0.11-0.59); MONO% 3.7 % (1.7-9.3); NEUT# 13.76 X1000 (1.4-6.5); NEUT% 88.8 % (42.2-75.2); PLT 143 X1000 (130-400); WBC 15.49 X1000 (4.8-10.8)
[2019-07-15 07:16] LABS: AGAP 12; BUN 9 mg/dL (8-22); CALCIUM 8.6 mg/dL (8.8-10.2); CHLORIDE 110 mmol/L (98-107); COSMO 278; CREATININE 0.7 mg/dL (0.7-1.2); ESTIMATED GFR > 60; GLUCOSE 101 mg/dL (70-104); PHOSPHORUS 2.1 mg/dL (2.7-4.5); POTASSIUM 3.3 mmol/L (3.5-5.1); SODIUM 140 mmol/L (136-145); TCO2 18 mmol/L (25-35)
[2019-07-15] MEDS: SOLU-MEDROL IV SCH (08:46)
[2019-07-15] MEDS: ZANAFLEX PO SCH ×3 (08:46→20:37)
[2019-07-15] MEDS: LAMICTAL PO SCH (08:46)
[2019-07-15] MEDS: NEUTRA-PHOS PO SCH ×4 (08:47→20:36)
[2019-07-15] MEDS: ROCEPHIN 2 GM in NS 50 ML IV SCH ×2 (08:47→09:18)
[2019-07-15] MEDS ORDERED: POTASSIUM PHOSPHATE 40 MMOL in NS 250 ML IV ONE (11:08)
[2019-07-15] MEDS ORDERED: MILK OF MAGNESIA PO PRN (11:09)
[2019-07-15] MEDS: NS 1,000 ML IV SCH (11:23)
--- NOTE | 2019-07-15 11:38 | PROGRESS NOTE ---
DATE: 07/15/2019 SUBJECTIVE: Has no primary care physician. This is a 43-year-old with history of neurogenic bladder with neurological problems. He tried to take a nap and soon developed severe shortness of breath. States he felt like he could not breathe and so he noticed some gross hematuria from his suprapubic tube, seen in the emergency department were pulmonary angiogram did not reveal any pulmonary emboli. The radiologist stated that he was consistent with pneumonia, edema, inflammatory disease, or inhalational exposure. The patient currently states he is feeling better. He has a long history of neurologic problems, can barely walk at this time due to severe rheumatoid arthritis. He initially had a Evans catheter but it eroded through the ventral penile shaft and caused iatrogenic hypospadias. The suprapubic tube was placed several years ago, undergoes monthly change of the tube. Last changed several weeks ago. His catheter was irrigated the evening before and no clots were visualized. PAST MEDICAL HISTORY: 1. Severe rheumatoid arthritis. 2. Neurogenic bladder with urgency. 3. Recurrent urinary tract infections. PAST SURGICAL HISTORY: 1. Extracorporeal shockwave lithotripsy in the past. 2. Cystoscopic exam with ureteroscopic basket extraction of stones. 3. Cystoscopic exam with cystolitholapaxy. 4. He has had placement of suprapubic tube x2. 5. Tonsillectomy. So patient was admitted with pulmonary problems noted. IMPRESSION: 1. CT angiogram suggests pneumonia and pulmonary venous hypertension, inflammatory disease and inhalation exposure. 2. Neurogenic bladder, indwelling suprapubic catheter. 3. Hematuria started after his pulmonary problems. 4. Possible hemorrhagic cystitis. The patient had a Pulmonary consultation, Dr. Haines has seen, felt he had bilateral pneumonia, acute hypoxemic respiratory failure in the face of rheumatoid arthritis and suprapubic catheter with hematuria. Today, he states he is feeling better. OBJECTIVE: He remains afebrile, temperature 97.7 degrees, pulse 74, respirations 15, blood pressure 113/63. Pupils are equal and round. Lungs are clear in all lung hernandez. Cardiovascular: Regular rhythm and rate without murmur or S3. Urine output 69981 mL. ASSESSMENT AND PLAN: 1. Acute hypoxemic respiratory failure secondary to bilateral pneumonia which is improving. Continue present antibiotics and supplemental O2 and bronchodilators. 2. Hematuria, indwelling suprapubic catheter. That is resolved. 3. Escherichia coli bacteremia. 4. Acute lung injury. 5. Rheumatoid arthritis. 6. Suprapubic catheter with prior hematuria. Clinically he is improving, doing better. We are hoping he could possibly be discharged on Wednesday. Considering his bacteremia, blood cultures positive from July 11, going to repeat the blood cultures and we what we have. Right now he is on ceftriaxone 2 g IV q.24 hours. Regarding hematuria, indwelling suprapubic catheter has been recommended to irrigate the Evans tube with sterile saline. The patient has this catheter because of a history of neurogenic bladder, so seems to be improving from that front as well. REVIEW OF HIS ORDERS: On normal saline 75 mL an hour, methylprednisone 40 mg IV daily, Lamictal 25 mg a day, ceftriaxone 2 g IV q.24 hours, Zanaflex 2 mg p.o. t.i.d., melatonin 5 mg p.o. at nighttime - I will make sure he gets, I think it is 10 mg at night, I think that is what he says he takes at home. Gave him some milk of magnesia if he needs it for constipation. cc: Zhang Marques MD MTDD
[2019-07-15] MEDS: MELATONIN PO SCH (20:36)
[2019-07-16] MEDS: NS 1,000 ML IV SCH ×2 (00:42→14:08)
[2019-07-16] MEDS: DUONEB (A & A) INH SCH ×4 (02:55→21:00)
[2019-07-16] MEDS: PRILOSEC PO SCH (06:13)
[2019-07-16 06:22] LABS: BASO# 0.02 X1000 (0.0-0.2); BASO% 0.2 % (0.0-0.8); EOS# 0.04 X1000 (0.0-0.7); EOS% 0.4 % (0.0-10.0); HEMOGLOBIN 12.4 g/dL (14.0-18.0); IMM GRAN# 0.53 X1000 (0.0-0.04); IMM GRAN% 5.4 % (0.0-0.5); LYMPH# 1.55 X1000 (1.2-3.4); LYMPH% 15.8 % (20.5-51.1); MCHC 33.5 g/dL (33-37); MCV 83.5 FL (81-99); MONO# 0.79 X1000 (0.11-0.59); MPV 12.5 FL (7.4-10.4); NEUT# 6.89 X1000 (1.4-6.5); NEUT% 70.2 % (42.2-75.2); PLT 171 X1000 (130-400); RBC 4.43 XMIL (4.7-6.1); RDW 14.6 % (11.5-14.5); WBC 9.82 X1000 (4.8-10.8)
[2019-07-16 06:52] LABS: AGAP 12; BUN 12 mg/dL (8-22); CHLORIDE 109 mmol/L (98-107); COSMO 278; CREATININE 0.8 mg/dL (0.7-1.2); ESTIMATED GFR > 60; GLUCOSE 80 mg/dL (70-104); PHOSPHORUS 3.1 mg/dL (2.7-4.5); POTASSIUM 3.9 mmol/L (3.5-5.1); SODIUM 140 mmol/L (136-145); TCO2 19 mmol/L (25-35)
[2019-07-16] MEDS ORDERED: HALL'S COUGH LOZENGE MT PRN (08:22)
--- NOTE | 2019-07-16 08:24 | PROGRESS NOTE ---
DATE: 07/16/2019 SUBJECTIVE: Mr. Maloney is doing better. He is comfortable. He slept better last night. He does not feel constipated. Breathing is better. OBJECTIVE: Vital Signs: Temp 98.1 degrees, pulse 67, respirations 18, blood pressure 113/67. HEENT: Pupils are equal and round. Lungs: Clear in all lung hernandez. Cardiovascular: Regular rhythm and rate without murmur or S3. Urine output is 3600 mL. IMAGING: Chest x-ray from 07/14/2019 was stable. Extensive diffuse interstitial airspace opacities throughout both lungs were identified, so will check another chest x-ray in the morning. ASSESSMENT AND PLAN: 1. Acute hypoxemic respiratory failure secondary to bilateral pneumonia, which is improving. Continue his bronchodilators, supplemental oxygen, and his antibiotics. 2. Hematuria. Indwelling suprapubic catheter. Hematuria has resolved. 3. Escherichia coli bacteremia. 4. Acute lung injury. 5. Rheumatoid arthritis. 6. Suprapubic catheter for prior hematuria. REVIEW OF ORDERS: I do not see any change. On ceftriaxone 2 grams IV every 24 hours, and his lab from this morning is unremarkable. cc: Zhang Marques MD
[2019-07-16] MEDS: ZANAFLEX PO SCH ×4 (08:45→20:21)
[2019-07-16] MEDS: LAMICTAL PO SCH (08:45)
[2019-07-16] MEDS: NEUTRA-PHOS PO SCH ×4 (08:45→20:21)
[2019-07-16] MEDS: ROCEPHIN 2 GM in NS 50 ML IV SCH ×2 (08:45→09:29)
[2019-07-16] MEDS: SOLU-MEDROL IV SCH (08:45)
[2019-07-16] MEDS: MELATONIN PO SCH (20:21)
[2019-07-17] MEDS: NS 1,000 ML IV SCH ×2 (02:21→11:24)
[2019-07-17] MEDS: DUONEB (A & A) INH SCH ×2 (03:32→11:50)
[2019-07-17] MEDS: PRILOSEC PO SCH (06:03)
[2019-07-17] MEDS: TYLENOL PO PRN (06:06)
--- NOTE | 2019-07-17 07:18 | Diag Imaging Result Doc PS360 ---
EXAM: CHEST-1 VIEW 07/17/2019 HISTORY: SOB TECHNIQUE: AP portable upright at 0603 COMMENT: There is dense alveolar opacity in both lung bases. Compared to the previous examination of 07/14/2019 this is worsened slightly in the left lower lobe. IMPRESSION: Pulmonary edema and/or pneumonia. Electronically signed by Moshe Hunt 07/17/2019 7:16 AM
[2019-07-17 07:37] LABS: BASO# 0.03 X1000 (0.0-0.2); BASO% 0.3 % (0.0-0.8); EOS# 0.15 X1000 (0.0-0.7); EOS% 1.5 % (0.0-10.0); HEMATOCRIT 40.3 % (42.0-52.0); HEMOGLOBIN 13.9 g/dL (14.0-18.0); IMM GRAN# 0.86 X1000 (0.0-0.04); IMM GRAN% 8.6 % (0.0-0.5); LYMPH# 2.36 X1000 (1.2-3.4); LYMPH% 23.5 % (20.5-51.1); MCH 28.7 PG (27-31); MCHC 34.5 g/dL (33-37); MCV 83.3 FL (81-99); MONO# 0.88 X1000 (0.11-0.59); MONO% 8.8 % (1.7-9.3); MPV 11.9 FL (7.4-10.4); NEUT# 5.77 X1000 (1.4-6.5); NEUT% 57.3 % (42.2-75.2); PLT 187 X1000 (130-400); RBC 4.84 XMIL (4.7-6.1); RDW 14.8 % (11.5-14.5); WBC 10.05 X1000 (4.8-10.8)
[2019-07-17 07:59] LABS: BANDS 2 % (0-1); LYMPHS 28 % (21-51); MONO 10 % (1-9); SEGS 56 % (42-75)
[2019-07-17 08:13] LABS: AGAP 13; BUN 9 mg/dL (8-22); CALCIUM 8.4 mg/dL (8.8-10.2); CHLORIDE 108 mmol/L (98-107); COSMO 281; CREATININE 0.8 mg/dL (0.7-1.2); ESTIMATED GFR > 60; GLUCOSE 80 mg/dL (70-104); PHOSPHORUS 3.2 mg/dL (2.7-4.5); POTASSIUM 3.2 mmol/L (3.5-5.1); SODIUM 142 mmol/L (136-145); TCO2 21 mmol/L (25-35)
[2019-07-17] MEDS: NEUTRA-PHOS PO SCH ×2 (09:42→13:22)
[2019-07-17] MEDS: LAMICTAL PO SCH (09:43)
[2019-07-17] MEDS: SOLU-MEDROL IV SCH (09:43)
[2019-07-17] MEDS: ZANAFLEX PO SCH (09:43)
[2019-07-17] MEDS: ROCEPHIN 2 GM in NS 50 ML IV SCH (11:25)
[2019-07-17 11:31] VITALS: BP 135/85
--- NOTE | 2019-07-17 12:26 | DISCHARGE SUMMARY ---
ADMISSION DATE: 07/11/2019 DISCHARGE DATE: 07/17/2019 PRIMARY CARE PHYSICIAN: He has no primary care physician. HISTORY OF PRESENT ILLNESS: This is a 43-year-old with history of neurogenic bladder, neurogenic problems. States that the day before admission, on 07/11/2019, he tried to take a nap, but soon developed severe shortness of breath. States he could feel like he could breathe, but could not breathe real deep or breathing in. Also noted hematuria in the suprapubic tube. He was seen in the emergency room. Pulmonary angiogram did not reveal any pulmonary emboli. The radiologist stated that this was consistent with pneumonia, edema, inflammatory disease, or inhalation exposure. The patient currently states at the time of admission that he was feeling a little better. He has a long history of neurologic problems, and he can barely walk at this time. States that it is due to severe rheumatoid arthritis. He initially wore a Evans catheter, but this eroded through the ventral penile shaft to cause iatrogenic hypospadias. His suprapubic tube was placed several years ago. He undergoes monthly changes of tube. It was last changed several weeks ago. The patient states the catheter was irrigated the evening before, and there were no clots at that time. He had a history of bladder stones, and underwent cystolitholapaxy in 12/2018. The patient is currently being treated with IV cefepime. PAST MEDICAL HISTORY: 1. Rheumatoid arthritis. 2. Neurogenic bladder with urgency. 3. Recurrent urinary tract infections. PAST SURGICAL HISTORY: 1. Extracorporeal shock wave lithotripsy. 2. Cystoscopic exam with ureteroscopy and basket extraction of stones. 3. Cystoscopic exam with cystolitholapaxy. 4. Placement of suprapubic catheter x2. 5. Tonsillectomy. 6. [place] teeth extracted. ADMISSION DIAGNOSES: 1. Pulmonary problems noted. Thought he might have some pneumonia and some pulmonary venous hypertension, which was impression on CT scan. I had given some supplementary oxygen. There is a possibly he could have been exposed to inhalation exposures. He showed steady improvement with his breathing, and able to decrease his oxygen and eventually stop it. 2. Neurogenic bladder, indwelling suprapubic catheter. 3. Hematuria, which started after he started having his pulmonary problems. 4. Possible hemorrhagic cystitis. HOSPITAL COURSE: Pulmonary arteriogram on 07/11/2019: Negative for pulmonary emboli, extensive bilateral infiltrates, indeterminate, compatible with severe pneumonia, pulmonary edema, inflammatory disease, or inhalation exposure. Pulmonary consultation on 07/12/2019: Bilateral pneumonia, acute hypoxemic respiratory failure, rheumatoid arthritis, suprapubic catheter with hematuria, so continue broad-spectrum antibiotics. Chest x-ray on 07/14/2019 appeared stable. Chest x-ray on 07/17/2019: Pulmonary edema and pneumonia, but resolving. Clinically he felt better. The patient wanted to go home, and we will discharge him home. MEDICATIONS: He is on his usual home medications, which are lamotrigine 25 mg daily, methylene, sodium phosphatase, methyl Blue combination Urogesic Blue 1 p.o. a day with lunch, and tizanidine 6 mg t.i.d. CULTURES: Blood culture had 1 with Escherichia coli, and it was sensitive to cefazolin. DISPOSITION: He is not allergic to anything. I will let him go home on Keflex, which he will take 500 mg twice a day, and I will give him that for 14 days for possible bacteremia with Escherichia coli. Will see if we can get a leg bag for him, and go home with [facility]. cc: Zhang Marques MD
--- NOTE | 2019-07-23 16:19 | HISTORY AND PHYSICAL ---
CHIEF COMPLAINT: Increased work of breathing and shortness of breath. SUBJECTIVE: Patient presented to the emergency department with increased work of breathing, tremors, nausea, vomiting, noted that symptoms started about an hour prior to coming to the ER. Stated that he is feeling sweaty. ALLERGIES: No known drug allergies. MEDICATIONS: Lamotrigine 25, Myrbetriq 50, lisinopril 5, Urogesic Blue as needed. PAST MEDICAL HISTORY: Hypertension, rheumatoid arthritis, kidney stones, he has an indwelling catheter, has history of tremors. SURGICAL HISTORY: He has an indwelling catheter placed secondary to urethral trauma. REVIEW OF SYSTEMS: As noted above. Denies any fevers although states he has had chills, has shortness of breath, coughing. Denies any production to his cough. Denies chest pain, palpitations. Denies diarrhea, constipation, melena, hematochezia. Denies any current urinary symptoms although states he has been having trouble with the catheter. SOCIAL HISTORY: Smokes a pack or less a day. Drinks alcohol occasionally. FAMILY HISTORY: Noncontributory. OBJECTIVE: Vital Signs: T-max 103 degrees, pulse 137, respiratory 24, BP 121/74, saturation 92% on room air. General: Patient is a somewhat ill-appearing male who is in mild respiratory distress. HEENT: Normocephalic. Neck: Supple. CV: Tachycardia, no appreciable murmurs. Chest: Tachypneic, mildly labored, appears clear. Abdomen: Soft diffusely but minimally tender. Positive suprapubic catheter. Extremities: Moves all extremities, no edema. Neurologic: No focal changes. He is awake, alert, oriented. LABS: WBCs 2, hemoglobin and hematocrit 14 and 49, creatinine 1.3, glucose 95. ASSESSMENT: 1. Sepsis likely urinary source versus pneumonia. 2. Possible pneumonia per his CT although no definitive infiltrate certainly could be inhalational injury. 3. Carbon monoxide exposure. 4. Hypomagnesemia. 5. Hypotension. 6. Septic shock. 7. Supraventricular tachycardia. PLAN: We are going to admit patient the hospital, transfer him to the ICU, place him on antibiotics. We will consult urology and will follow. cc: Nathan Delgado MD
== END 2019-07-17 13:50 | disposition home health service (06) | DRG 193 ==
LOC: P.ED 16:21 → P.MEDSURG 20:27 → SUATTDRO 20:27 → ICU 07-12 08:35 → 2N 07-13 20:05 → 3N 07-16 22:54
PROVIDERS: ATTEND Emergency Medicine

== ENCOUNTER 2019-08-29 15:49 | Inpatient (IN) ==
[2019-08-29] MEDS ORDERED: ALBUTEROL NEB INH ONE (16:04)
[2019-08-29] MEDS ORDERED: DUONEB (A & A) INH ONE (16:04)
--- NOTE | 2019-08-29 16:22 | Diag Imaging Result Doc PS360 ---
EXAM: CHEST-1 VIEW 08/29/2019 HISTORY: sob TECHNIQUE: AP portable at 1615 COMMENT: There is diffuse reticulonodular opacity over both lungs with larger nodule seen in the left and to some extent right upper lobes. This appearance has not changed significantly since 08/16/2019 or 07/11/2019. There are no earlier radiographs available for comparison. IMPRESSION: Interstitial pneumonia and/or fibrosis. Electronically signed by Moshe Hunt 08/29/2019 4:20 PM
[2019-08-29] MEDS ORDERED: NS 1,000 ML IV ONE ×2 (16:25→16:50)
--- NOTE | 2019-08-29 16:51 | EKG Report ---
Test Performed on : 08/29/2019 4:31:41 PM Test Reason : tachy Blood Pressure : / mmHG Vent. Rate : 119 BPM Atrial Rate : 119 BPM P-R Int : 120 ms QRS Dur : 084 ms QT Int : 296 ms P-R-T Axes : 079 -32 062 degrees QTc Int : 416 ms Sinus tachycardia. Possible Left atrial enlargement Left axis deviation Abnormal ECG When compared with ECG of 11-JUL-2019 17:33, (Unconfirmed) No significant change was found Unconfirmed Result
[2019-08-29 16:57] LABS: BASO# 0.01 X1000 (0.0-0.2); BASO% 0.1 % (0.0-0.8); EOS# 0.01 X1000 (0.0-0.7); EOS% 0.1 % (0.0-10.0); HEMATOCRIT 45.6 % (42.0-52.0); HEMOGLOBIN 15.5 g/dL (14.0-18.0); LYMPH# 0.34 X1000 (1.2-3.4); LYMPH% 4.6 % (20.5-51.1); MCH 28.7 PG (27-31); MCV 84.3 FL (81-99); MONO% 1.4 % (1.7-9.3); MPV 12.7 FL (7.4-10.4); NEUT# 6.94 X1000 (1.4-6.5); NEUT% 93.8 % (42.2-75.2); PLT 181 X1000 (130-400); RBC 5.41 XMIL (4.7-6.1)
[2019-08-29 17:05] LABS: INR 1.21; PROTIME 15.5 Seconds (11.0-16.0); PTT 29.3 Seconds (22.3-41.8)
[2019-08-29 17:07] LABS: AGAP 16; ALB/GLOB RATIO 1.8; ALBUMIN 3.9 g/dL (3.5-5.0); ALKALINE PHOSPHATASE 69 U/L (32-122); BUN 11 mg/dL (8-22); CALCIUM 9.2 mg/dL (8.8-10.2); CHLORIDE 104 mmol/L (98-107); COSMO 279; ESTIMATED GFR > 60; GLUCOSE 96 mg/dL (70-104); GOT 18 U/L (10-34); GPT 13 U/L (10-44); POTASSIUM 3.8 mmol/L (3.5-5.1); SODIUM 140 mmol/L (136-145); TCO2 20 mmol/L (25-35); TOTAL BILIRUBIN 1.16 mg/dL (0.20-1.00); TOTAL PROTEIN 6.1 g/dL (6.3-8.3)
--- NOTE | 2019-08-29 17:48 | Diag Imaging Result Doc PS360 ---
EXAM: US PELVIC MALE (COMPLETE) HISTORY: is cath in bladder, ?Fluid in pelvis TECHNIQUE: No pelvic ultrasound COMPARISON: None. FINDINGS: There appears to be a suprapubic catheter within the urinary bladder. There is debris/hemorrhage within the urinary bladder. Electronically signed by Senthil Mei 08/29/2019 5:45 PM
[2019-08-29] MEDS ORDERED: TYLENOL PO ONE (17:49)
[2019-08-29 17:52] LABS: CK INDEX 0.6 (0.0-2.5); CK-MB 1.32 ng/mL (0.0-5.0)
[2019-08-29] MEDS ORDERED: DOXYCYCLINE 100 MG in NS 250 ML IV SCH (18:21)
--- NOTE | 2019-08-29 18:37 | PROVIDER DOCUMENTATION ---
This chart was entered by Veronica Tran Scribe, acting as scribe for Alexandre Martino MD. HPI-Respiratory General - General Stated Complaint: RESP. DISTRESS Time Seen by Provider: 08/29/19 16:01 Source: patient, EMS (first response) Allergies/Adverse Reactions: Patient Allergies Allergy/AdvReac Type Severity Reaction Status Date / Time No Known Allergies Allergy Verified 12/27/18 19:03 Home Medications: Home Medication List Medication Instructions Recorded Confirmed Last Taken Type Lamotrigine 25 mg PO DAILY 07/12/19 07/12/19 Unknown History [place]/Na Phos/Meth Blue/Hyos 1 ea PO WLUNCH 07/12/19 07/12/19 Unknown History [Urogesic-Blue] Tizanidine HCl 6 mg PO TID 07/12/19 07/12/19 Unknown History - History of Present Illness-Resp Nature of Presenting Problem: 44 yowm presents to the ed via ems with sob. per ems when aos pt had o2 sat 80% on RA. pt was placed on O2 andsat came up to normal range. pt sts had episode of cough with n/v/x1 today but has resolved. pt denies pain on exam Severity in ED: reports: mild Onset/Duration: reports: just prior to arrival Timing: reports: still present, improving Exposure: reports: unknown cause Cough Quality/Degree: reports: mild, dry cough Episode Frequency: occasional episodes Current Respiratory Medication Therapy: Initiated see nurses note Modifying Factors: improves with: oxygen, rest, sitting upright. worse with: exertion, coughing Associated Symptoms: reports: cough, fever/chills, shortness of breath. denies: chest pain/soreness, nasal drainage, wheezing Similar Symptoms Previously?: Yes Recently seen or treated by another doctor?: No (home health sent to ed) Review of Systems - Adult - REVIEW OF SYSTEMS - ADULT Constitutional: reports: see HPI, chills, fever Eyes: reports: no symptoms reported Ears, Nose, Mouth & Throat: reports: no symptoms reported Cardiovascular: reports: see HPI, other (tachycardia). denies: chest pain Respiratory: reports: see HPI, cough, dyspnea on exertion, shortness of breath. denies: wheezing Gastrointestinal: reports: nausea, vomiting (x1). denies: abdominal pain, diarrhea Genitourinary: reports: see HPI, hematuria Musculoskeletal: reports: no symptoms reported Integumentary: reports: no symptoms reported Neurological: denies: dizziness/vertigo, headache/migraines Psychiatric: reports: no symptoms reported Endocrine: reports: no symptoms reported Hematologic/Lymphatic: reports: no symptoms reported Allergic/Immunologic: reports: no symptoms reported All Other Systems: Reviewed and Negative Past History - Adult - PAST MEDICAL HISTORY-ADULT Review of Records: reports: Old Records Reviewed, Nursing Assessment Review, Medications Reviewed, Social history reviewed & non-contributory. Major Childhood Illnesses: reports: denies history Cardiovascular: reports: HTN Respiratory: reports: denies history Gastrointestinal: reports: denies history Genitourinary: reports: kidney stones, other (indwelling zambrano cath) Musculoskeletal: reports: arthritis, other (RA ) Neurological: reports: other (tremors) Psychiatric: reports: denies history Endocrine/Immune: reports: denies history Other Conditions: reports: denies history - PRIOR SURGERIES/PROCEDURES Surgical/Procedure History: reports: tonsillectomy, other ( surgery to repair traumatic cath) - IMMUNIZATION STATUS Childhood Immunizations: See Nurse Assessment Flu Vaccine: See Nurse Assessment - FAMILY HISTORY Family History: reviewed, not pertinent - SOCIAL HISTORY Smoking: quit less than 1 year Substance Use: denies Living Situation: family Physical Exam-General - PHYSICAL EXAM-ADULT Initial Vital Signs Reviewed: Yes (temp-100.9 HR-137 RR-27 BP-99/59 O2-88%) - CONSTITUTIONAL General Appearance: appears well, alert, mild distress, thin - EYES Eyes: PERRL/EOMI, pink conjunctivae - HEAD, EARS, NOSE, MOUTH & THROAT HENMT: moist mucous membranes - NECK Neck: non-tender, full range of motion, supple, normal inspection - RESPIRATORY Respiratory: chest non-tender, decreased breath sounds, increased rate (27), other (O@ 88% RA) - CARDIOVASCULAR Cardiovascular: normal peripheral pulses, tachycardia (137) - CHEST (BREASTS) Chest/Breast: deferred - GASTROINTESTINAL (ABDOMEN) Abdominal Exam: normal bowel sounds, non tender, soft - GENITOURINARY Male Genitalia: other (hematuria noted in suprapubic cath but cath was changed today) Rectal Exam: deferred Hemoccult Exam: deferred - LYMPHATIC Lymphatic: no adenopathy - MUSCULOSKELETAL Back Exam: normal inspection, no CVA tenderness, no vertebral tenderness Extremity: non-tender, normal inspection - SKIN Integumentary: normal color, normal turgor, warm/dry - NEUROLOGIC Neurologic: grossly normal - PSYCHIATRIC Psych/Mental Status: normal mood/affect, normal thought content, normal thought process, oriented x 3 Progress - PLAN OF CARE/RESULTS Progress/Plan/Lab Results: Vital Signs - 8 hr 08/29/19 15:50 08/29/19 16:33 Temperature 100.9 F H Pulse Rate 137 H 130 H Respiratory Rate 27 H 18 Blood Pressure 99/59 O2 Sat by Pulse Oximetry 88 L 92 L 08/29/19 16:20 Influenza Screen - Final Nasopharyngeal Laboratory Results - last 24 hr 08/29/19 08/29/19 08/29/19 16:12 16:12 16:12 WBC 7.40 RBC 5.41 Hgb 15.5 Hct 45.6 MCV 84.3 MCH 28.7 MCHC 34.0 RDW Std Deviation 14.0 Plt Count 181 MPV 12.7 H Immature Gran % (Auto) 0.0 Neut % (Auto) 93.8 H Lymph % (Auto) 4.6 L [place] % (Auto) 1.4 L Eos % (Auto) 0.1 Baso % (Auto) 0.1 Immature Gran # (Auto) 0.00 Neut # (Auto) 6.94 H Lymph # (Auto) 0.34 L [place] # (Auto) 0.10 L Eos # (Auto) 0.01 Baso # (Auto) 0.01 PT INR PTT (Actin FS) Sodium 140 Potassium 3.8 Chloride 104 Carbon Dioxide 20 L Anion Gap 16 BUN 11 Creatinine 1.0 Estimated GFR/1.73 m2 > 60 BUN/Creatinine Ratio 11 Glucose 96 Calculated Osmolality 279 Calcium 9.2 Total Bilirubin 1.16 H AST 18 ALT 13 Alkaline Phosphatase 69 Creatine Kinase Creatine Kinase Index CK-MB (CK-2) Troponin T Total Protein 6.1 L Albumin 3.9 Globulin 2.2 Albumin/Globulin Ratio 1.8 Plasma Lactate 1.9 08/29/19 08/29/19 08/29/19 16:12 16:12 16:12 WBC RBC Hgb Hct MCV MCH MCHC RDW Std Deviation Plt Count MPV Immature Gran % (Auto) Neut % (Auto) Lymph % (Auto) [place] % (Auto) Eos % (Auto) Baso % (Auto) Immature Gran # (Auto) Neut # (Auto) Lymph # (Auto) [place] # (Auto) Eos # (Auto) Baso # (Auto) PT 15.5 INR 1.21 PTT (Actin FS) 29.3 Sodium Potassium Chloride Carbon Dioxide Anion Gap BUN Creatinine Estimated GFR/1.73 m2 BUN/Creatinine Ratio Glucose Calculated Osmolality Calcium Total Bilirubin AST ALT Alkaline Phosphatase Creatine Kinase 211 H Creatine Kinase Index 0.6 CK-MB (CK-2) 1.32 Troponin T < 0.010 Total Protein Albumin Globulin Albumin/Globulin Ratio Plasma Lactate Orders Category Date Time Status Cardiac Monitoring DIRECTED Care 08/29/19 16:34 Active IV Insertion ORDERED Care 08/29/19 16:34 Completed Notify MD of + Sepsis Screen NOW Care 08/29/19 16:34 Active Notify Physician As Ordered Care 08/29/19 16:34 Active Nursing- Obtain EKG ONCE Care 08/29/19 16:04 Active CHEST-1 VIEW [RAD] Stat Exams 08/29/19 16:04 Completed US PELVIC MALE (COMPLETE) [US] Stat Exams 08/29/19 16:27 Completed BLOOD CULTURE [BLDCUL] Stat Lab 08/29/19 16:16 Results CBC WITH DIFF [HEME] Stat Lab 08/29/19 16:12 Completed CK PROFILE [SP CHEM] Stat Lab 08/29/19 16:12 Completed COMPREHENSIVE METABOLIC PANEL [CHEM] Stat Lab 08/29/19 16:12 Completed D-DIMER [COAG] Stat Lab 08/29/19 18:06 Uncollected INFLUENZA SCREEN A/B Stat Lab 08/29/19 16:20 Completed LACTATE, PLASMA [CHEM] Lab 08/29/19 19:45 Uncollected LACTATE, PLASMA [CHEM] Lab 08/29/19 22:45 Uncollected LACTATE, PLASMA [CHEM] Q3H Lab 08/29/19 16:12 Completed PROTIME WITH INR [COAG] Stat Lab 08/29/19 16:12 Completed PTT [COAG] Stat Lab 08/29/19 16:12 Completed TROPONIN T Stat Lab 08/29/19 16:12 Completed URINALYSIS W/POSS RFLX CULT [URINALYSIS] Stat Lab 08/29/19 16:26 Ordered 0.9% Sodium Chloride Inj [Ns] 1,000 ml Med 08/29/19 16:50 Active IV 200 mls/hr 0.9% Sodium Chloride Inj [Ns] 1,000 ml Med 08/29/19 16:25 Discontinued IV 999 mls/hr Acetaminophen [Tylenol] Med 08/29/19 17:49 Discontinued 650 mg PO NOW ONE Albuterol 2.5MG/Ipratrop 0.5MG [Duoneb (A & A)] Med 08/29/19 16:04 Discontinued 3 ml INH NOW ONE Albuterol [Albuterol Neb] Med 08/29/19 16:04 Discontinued 5 mg INH NOW ONE Doxycycline 100 mg Med 08/29/19 18:21 Active 0.9% Sodium Chloride Inj [Ns] 250 ml IV BID Piperacillin/Tazobactam [Zosyn] 3.375 gm Med 08/29/19 18:30 Active 0.9% Sodium Chloride Inj [Ns] 50 ml IV Q6H Aerosol Treatments Routine Oth 08/29/19 16:05 Completed Aerosol Treatments Stat Oth 08/29/19 16:05 Completed Oxygen Device Stat Oth 08/29/19 16:34 Completed EKG [EKG] Stat Ther 08/29/19 16:04 Draft Result Diagrams: 08/29/19 16:12 08/29/19 16:12 - EKG 1 Time of EKG reading by physician:: 16:31 EKG Read and Signed by:: Alexandre Martino EKG Interpretation (*Must complete 3 of following elements*): Abnormal Rate: 119 Rhythm: sinus tachycardia [place]: left (deviation) QRS: other (possible left atrial enlargement) CO Interval: normal ST Wave: normal - XRAY 1 XRAY Study: Chest Impression: Abnormal Comparison with other Films: no changes - ULTRASOUND (By Radiology) 1 US Study: Pelvic (catheter in bladdr, is debris) - CONSULTS/PCP/HOSPITALIST Notification #1 *Consult/PCP/Hospitalist*: Hospitalist Time Discussed: 18:15 Consult Disposition: Will see in ED, Admit Departure - Departure Date of Disposition Decision: 08/29/19 Time of Disposition Decision: 18:15 DIAGNOSIS: Dyspnea, Hypoxia, Suprapubic catheter dysfunction, Bladder hemorrhage Disposition: HOME 01 Certified Medical Emergency: Emergent Condition: Stable Referrals and Follow-Ups: Dominick Guillaume MD [Primary Care Provider] - - Critical Care Note This patient required my direct & personal management of CC.: Yes Total Time (mins): 38 Critical Care Statement: This patient required my direct personal management to treat or rule out processes, the absence of which, could potentiallly result in sudden, clinically significant life or limb threatening deterioration. Attestation - Physician/ NE Attestation Patient care was provided by Advanced Practice Provider:: No The physician spent face to face time with patient:: Yes Advanced Practice Provider documentation review:: Supervising physician onsite and consulted in the evaluation and care of this patient. The physician did have a face to face encounter with the patient. This chart was documented by the indicated scribe, (Veronica Tran Scribe) and accurately reflects the services I performed and decisions made by me, Alexandre Martino MD, as attested by the provider's signature.
[2019-08-29] MEDS: ZOSYN 3.375 GM in NS 50 ML IV SCH (19:03)
[2019-08-29] MEDS: DOXYCYCLINE 100 MG in NS 250 ML IV SCH (19:51)
--- NOTE | 2019-08-29 19:58 | HISTORY AND PHYSICAL ---
CHIEF COMPLAINT: Dyspnea and bleeding from suprapubic catheter. HISTORY OF PRESENT ILLNESS: The patient is a 44-year-old male with a history of neurogenic bladder with chronic suprapubic catheterization, numerous UTIs, and recent admission with diffuse pneumonia. He had a suprapubic catheterization change by home health nurse this morning. Had some bleeding from it afterwards but did not really notice it significantly. A couple hours later he began having sudden onset of dyspnea and increased work of breathing. He had a significant nonproductive cough and chills. He did not note any fever. He had 1 episode of vomiting, but not really any nausea. He has had no leg swelling. He has had no recent travel. All of this started pretty suddenly this morning. This is similar to the episode he had approximately a month ago where he was brought into the hospital. On initial evaluation in the ED, he had significant bleeding out of and around his suprapubic cath. Ultrasound suggested significant debris and/or hemorrhage in the bladder itself as well. He is also noted to be significantly hypoxic with a saturation of 88% on room air and 92 on 4 L. He was febrile and tachycardic, so sepsis was presumed. Chest x-ray showed interstitial pneumonia and/or fibrosis but has not really significantly changed from any of his x-rays within the last 2 or 3 months. He had a similar episode in the hospital about a month ago with diffuse infiltrates on CT. CTA for pulmonary embolism was negative at that time. REVIEW OF SYSTEMS: Twelve point review of systems negative except as per interval history. ALLERGIES: No known drug allergies. PAST MEDICAL HISTORY: Hypertension, rheumatoid arthritis, chronic suprapubic catheterization. SURGICAL HISTORY: Suprapubic catheterization, kidney stone, lithotripsy. SOCIAL HISTORY: Still smoking a few cigarettes a day. Occasional alcohol use. Denies illicit drug use. FAMILY HISTORY: Parents still alive and in good health. LABS: WBC 7.4, hemoglobin 15.5, hematocrit 45.6, platelets 181,000. INR 1.2. Sodium 140, potassium 3.8, bicarb 20, BUN 11, creatinine 1.0, total bilirubin 1.16, CK 211. Troponin negative. Lactate 1.9. VITAL SIGNS: Temperature 100.9 degrees, pulse 130, initial respirations 20, repeat 18, blood pressure 99/59, O2 saturation 92% on 4 L by nasal cannula. PHYSICAL EXAMINATION: GENERAL: No acute distress. VITAL SIGNS: As above. HEENT: Normocephalic, atraumatic. Moist mucous membranes. No cervical adenopathy. CARDIOVASCULAR: Tachycardic but regular. No murmurs noted. PULMONARY: Pretty clear at the apexes, but significant crackles at both bases. No wheezing. Good air entry. ABDOMEN: Soft. Minimal tenderness around suprapubic cath. Bright red blood around suprapubic cath. Appears to be using around the catheter. Bowel sounds positive. EXTREMITIES: Peripheral pulses intact. No clubbing or cyanosis. NEUROLOGIC: No new focal deficits identified. PSYCHIATRIC: Awake, alert, oriented x3. Normal mood and affect. ASSESSMENT AND PLAN: 1. Sepsis, possible urinary tract infection, possible pneumonia. Patient admitted with fever, tachycardia, tachypnea, and hypoxia. He has had numerous UTIs, so certainly could have another, but initial concerns for pneumonia or other lung issue. We will place on antibiotics with doxycycline and Zosyn. Check urine Legionella. Prior CTA negative but given so little change in his x-ray, we will go ahead and get another CTA to make sure this is not a clot. We will also look at that to see if his imaging has changed at all. If it is exactly the same as previous, then rheumatoid lung injury versus other noninfectious process is a strong possibility. We will get initial studies tonight, but will likely need pulmonology evaluation tomorrow, unless CT shows clear and definite new pneumonia. We will continue aggressive hydration started in the ED. Recheck lactate and monitor closely. Blood pressure is a little on the low normal side but at looking previous admissions, it looks like he is always in that range, so low suspicion for shock at this point, but will definitely monitor blood pressure closely. 2. Hematuria and significant clotting in urine with suprapubic catheter, neurogenic bladder. Patient with significant bleeding. When nursing has attempted a irrigated bladder they have mostly gotten clots out. Have had difficulty getting it to clear. Ultrasound seems to show significant hemorrhage in the bladder. Also appears to have some oozing around the suprapubic catheter on exam. We will consult Urology on-call and see if they think he needs to be set up on continuous irrigation. Suspect that he will be. Urinalysis pending to assess for UTI, but will be on antibiotics for possible pneumonia as above anyway. Further management depending on results and response. 3. Rheumatoid arthritis. From the medical record, the patient's bladder issues were suspected to be a result of rheumatoid arthritis, but he is not really on anything for rheumatoid. I am not entirely sure how his diagnosis was made. Regardless, right now he would not be a candidate for any kind of immunosuppressive therapy anyway.
[2019-08-29] MEDS ORDERED: ZOFRAN IV PRN (21:06)
[2019-08-29 22:21] LABS: HEMATOCRIT 41.2 % (42.0-52.0); HEMOGLOBIN 13.9 g/dL (14.0-18.0)
[2019-08-29 23:04] LABS: INR 1.37; PROTIME 17.1 Seconds (11.0-16.0); PTT 33.8 Seconds (22.3-41.8)
[2019-08-30] MEDS ORDERED: NS 500 ML IV ONE (00:17)
[2019-08-30] MEDS ORDERED: NS 1,000 ML IV SCH (00:30)
[2019-08-30] MEDS: ZOSYN 3.375 GM in NS 50 ML IV SCH ×4 (00:30→23:30)
[2019-08-30 02:03] LABS: HEMATOCRIT 40.6 % (42.0-52.0); HEMOGLOBIN 13.8 g/dL (14.0-18.0)
[2019-08-30] MEDS: NS 1,000 ML IV SCH ×2 (02:33→17:03)
--- NOTE | 2019-08-30 05:46 | Diag Imaging Result Doc PS360 ---
EXAM: CT ANGIOGRM PULMONARY ARTERIES HISTORY: hypoxia, ?fibrosis, ? pneumonia, eval for PE TECHNIQUE: CT chest with intravenous contrast. Pulmonary arterial protocol with MIP images. COMPARISON: None. FINDINGS: No cardiomegaly. No pleural effusions. No aortic aneurysm or dissection. Normal opacification of the pulmonary arteries and their proximal branches. Prominent groundglass infiltrates diffusely within both lungs. There are also nodular infiltrates in the upper lobes. Small mediastinal nodes. IMPRESSION: 1.No pulmonary emboli 2.Diffuse groundglass infiltrates as well as nodular infiltrates in the upper lobes. Differential includes acute interstitial pneumonia, hypersensitivity pneumonitis, multifocal infection. 3.A preliminary report was given at 11:30 PM on 08/29/2019 This exam was performed using automated exposure control, adjustment of mA or kV according to patient size, and/or use of iterative reconstruction technique. Electronically signed by Senthil Mei 08/30/2019 5:43 AM
[2019-08-30 06:38] LABS: BASO# 0.02 X1000 (0.0-0.2); BASO% 0.1 % (0.0-0.8); HEMATOCRIT 39.3 % (42.0-52.0); IMM GRAN# 0.04 X1000 (0.0-0.04); IMM GRAN% 0.2 % (0.0-0.5); LYMPH# 0.47 X1000 (1.2-3.4); LYMPH% 2.6 % (20.5-51.1); MCH 28.3 PG (27-31); MCHC 33.1 g/dL (33-37); MCV 85.6 FL (81-99); MONO# 1.05 X1000 (0.11-0.59); MONO% 5.7 % (1.7-9.3); MPV 12.2 FL (7.4-10.4); NEUT# 16.69 X1000 (1.4-6.5); NEUT% 91.4 % (42.2-75.2); PLT 148 X1000 (130-400); RBC 4.59 XMIL (4.7-6.1); RDW 14.3 % (11.5-14.5); WBC 18.27 X1000 (4.8-10.8)
[2019-08-30 07:08] LABS: AGAP 13; ALB/GLOB RATIO 1.3; ALBUMIN 2.9 g/dL (3.5-5.0); ALKALINE PHOSPHATASE 44 U/L (32-122); BUN 9 mg/dL (8-22); CALCIUM 7.8 mg/dL (8.8-10.2); CHLORIDE 107 mmol/L (98-107); COSMO 277; CREATININE 0.9 mg/dL (0.7-1.2); ESTIMATED GFR > 60; GLUCOSE 107 mg/dL (70-104); GOT 20 U/L (10-34); GPT 12 U/L (10-44); POTASSIUM 3.7 mmol/L (3.5-5.1); SODIUM 139 mmol/L (136-145); TCO2 19 mmol/L (25-35); TOTAL BILIRUBIN 0.77 mg/dL (0.20-1.00); TOTAL PROTEIN 5.2 g/dL (6.3-8.3)
[2019-08-30 07:26] LABS: LYMPHS 2 % (21-51); MONO 5 % (1-9); SEGS 93 % (42-75)
[2019-08-30] MEDS ORDERED: MYRBETRIQ E.R. PO SCH (09:00)
[2019-08-30] MEDS ORDERED: ZANAFLEX PO SCH (09:00)
[2019-08-30 10:31] LABS: HEMATOCRIT 38.1 % (42.0-52.0); HEMOGLOBIN 12.8 g/dL (14.0-18.0)
--- NOTE | 2019-08-30 10:55 | CONSULTATION ---
DATE OF CONSULTATION: 08/30/2019 CONSULTING PHYSICIAN: Dr. Hleler in the emergency room. REASON FOR CONSULTATION: Consultation for malpositioned suprapubic tube, gross hematuria. HISTORY OF PRESENT ILLNESS: A 44-year-old male, who is a patient of Dr. Marquez, who reports having had a neurogenic bladder with significant urinary incontinence that has been managed with a suprapubic tube for approximately 15 years. He typically has had the suprapubic tube changed once a month at our office but recently switched to home health tube changes. He reports that on 08/29/2019, his suprapubic tube was changed around 10 a.m. He states that the home health nurse who had done it pushed the catheter deeper than typical and despite his objections, inflated the bulb of the Evans. He developed bleeding immediately. He developed discomfort as well. He requested for her to irrigate the bladder and states when she did it, there was quite a bit of blood. He was reportedly told to observe it. His bleeding around the suprapubic tube site worsened as well as via the catheter and he presented to the emergency room. Upon evaluation by emergency room staff, urology was contacted due to concern for suprapubic tube management. I have attempted to educate the staff about suprapubic tube management but I was told that they were not allowed to change suprapubic tubes per rules of the facility by a cleaner housekeeping. Hence, urology was consulted. The patient reports he feels full. He supposedly had 700+ mL by bladder scanning. He denies fevers, chills, or dysuria. He does have a history of recurrent urinary tract infections but none in the last several weeks. PAST MEDICAL HISTORY: Hypertension, rheumatoid arthritis, neurogenic bladder, urolithiasis. PAST SURGICAL HISTORY: Suprapubic tube placement. ALLERGIES: No known drug allergies. SOCIAL HISTORY: Smokes cigarettes. Occasional alcohol use. Denies illicit drug use. HOME MEDICATIONS: Vitamin B12, vitamin D, tizanidine, Myrbetriq, and Urogesic Blue, although the patient states he recently stopped Myrbetriq. FAMILY HISTORY: Negative for malignancies. REVIEW OF SYSTEMS: Reviewed and 12 systems negative except as per the HPI as well as shortness of breath and increased work of breathing. PHYSICAL EXAMINATION: T 97.9 degrees, P 79, BP 110/77. General: Pleasant male in no significant distress. HEENT: Normocephalic, atraumatic. Pulmonary: Bilateral good inspiratory effort. Cardiovascular and Peripheral Vascular System: No evidence of clubbing, cyanosis, or edema in the extremities. Abdomen: Scaphoid. Suprapubic tube site with 18-Wallisian catheter having a scant amount of blood in the tubing and quite a bit of blood on the sheets and on his body. Back: No CVA tenderness. : Circumcised phallus. Meatus is somewhat narrow but patent-appearing. Penile shaft is without lesions or deformities. Testes descended bilaterally. Scrotum is without evidence of lesions. No masses palpable in testes. Perineal is with intact structural integrity. No rashes, no lesions noted. Digital rectal examination is deferred at this time. Lymphatics: No cervical lymphadenopathy. No groin lymphadenopathy. Neurologic: Alert and oriented x3. Psychiatric: Appropriate mood and affect. PERTINENT LABS: His white cell count is 8000, hematocrit is 41. Creatinine is 1.0. PERTINENT IMAGES: Pelvic ultrasound on 08/29/2019 revealing debris within the urinary bladder. ASSESSMENT/PLAN: A 44-year-old male with a neurogenic bladder managed with a suprapubic tube who had tube exchanged by home health nursing. Upon pulling out the tube, quite a bit of blood was noted running through the tubing. I have discussed with the patient it will be to his benefit to exchange his suprapubic tube at bedside. We discussed that he likely had suprapubic tube inserted too far and the balloon blown up in his prostatic urethra which caused the bleeding. PLAN: Exchange suprapubic tube at bedside. cc: Christian Savage MD
[2019-08-30] MEDS: PRILOSEC PO SCH (10:56)
[2019-08-30] MEDS: DOXYCYCLINE 100 MG in NS 250 ML IV SCH ×2 (10:56→21:36)
[2019-08-30] MEDS: LAMICTAL PO SCH (10:57)
--- NOTE | 2019-08-30 10:59 | OPERATIVE NOTE ---
PROCEDURE DATE: 08/30/2019 SURGEON: Christian Savage M.D. PREOPERATIVE DIAGNOSES: 1. Malposition of suprapubic tube. 2. Gross hematuria. POSTOPERATIVE DIAGNOSES: 1. Malposition of suprapubic tube. 2. Gross hematuria. PROCEDURES PERFORMED: 1. Exchange of suprapubic tube. 2. Irrigation of clot. INDICATIONS: A 44-year-old male with neurogenic bladder, managed with suprapubic tube, who presented to the emergency room after having suprapubic tube exchange by home health staff, and having significant hematuria as well as bleeding around suprapubic tube site. The patient reports that his tube was introduced too far as he has had it exchanged multiple times, and despite his objections, home health nurse blew up the balloon. He appears to have had balloon blown up in his prostatic urethra, which likely is causing bleeding. He was counseled on exchanging suprapubic tube. After discussing the risks and benefits of the procedure, he was prepped in sterile fashion. A syringe was used to deflate the balloon. There was 10 mL in the balloon. Upon removal of the 18- Tongan suprapubic tube, copious amount of bloody urine and clot emanated from the suprapubic tract. I then introduced a 20-Tongan silicone Evans via the suprapubic tract until return of bloody urine was noted. Then, 5 mL of sterile water were instilled in the balloon, and gentle traction with gauze wrapped around the tube was achieved. I then used a catheter-tip syringe, and irrigated his bladder multiple times until the urine was light pink, without significant clots noted. His suprapubic tube was placed to gravity drainage. I have discussed with the patient that his hematuria should resolve with plenty of hydration and adequate drainage. ESTIMATED BLOOD LOSS: 0. COMPLICATIONS: None. DRAINS: A 20-Tongan silicone Evans catheter via suprapubic tract. SPECIMENS: None. DISPOSITION: He is being admitted to Hospitalist Service secondary to his dyspnea and reported decrease in hematocrit. I have discussed with the patient that from a urologic standpoint, he would be clear for discharge as long as he does not continue to have sizeable clots throughout the morning. cc: Christian Savage MD
[2019-08-30] MEDS: MYRBETRIQ E.R. PO SCH (11:26)
--- NOTE | 2019-08-30 11:55 | PROGRESS NOTE ---
DATE: 08/29/2019 TYPE OF NOTE: Critical care progress note. DATE AND TIME OF PROGRESS NOTE: On 08/29/2019 at 2130 hours. Mr. Maloney is a man with a history of neurogenic bladder. He does have an indwelling suprapubic catheter. He has had this in place for 15 years he reports. He reports that his home health nurse did come out and change his catheter out earlier today. He states that ever since she changed it, he has felt spasms in his bladder. He states that the moment that she put it in, he felt like it did not feel right. Coincidentally, he did call an ambulance secondary to some shortness of breath and did come to the ER, though while in the ambulance ride on the way to the hospital, his suprapubic catheter site did begin bleeding quite a bit. Dr. Pope, who admitted the patient earlier, had called and informed me of this and did report that he placed a consult with Dr. Savage with urology. At around 2130 hours, I was alerted by the patient's nurse, Kenn, that his catheter site was continuing to bleed. I went to the bedside and assessed the patient, and the patient had saturated the drop pad that was underneath him. He was reporting that he did feel a little dizzy. We did order stat hemoglobin and hematocrit, PT and INR, as well as a type and crossmatch. We did attempt to redress this and apply some pressure to this area, though the dressing immediately resaturated. Given this, we did go ahead and call Dr. Savage to inform him of the patient's suprapubic catheter complications and bleeding. He did recommend a special type dressing to be placed at the suprapubic catheter site and to do manual irrigation as needed. Even with this dressing in place, the patient did continue to have quite a bit of bleeding. When trying to manually irrigate his catheter the nurses were having difficulty irrigating his catheter, to the point it got to where it could not be irrigated at all. The patient was reporting lots of pressure and pain. We did bladder scan him. He did have 700 mL of fluids noted in his bladder per the bladder scanner. Given this, we did call back and speak with Dr. Savage. Dr. Savage did come in and replace the patient's suprapubic catheter. Since that time, the catheter does appear to be draining well. His output into the catheter bag has actually lightened in color. It was gross blood previously, but now is light to medium pink tinged. The patient states he feels much better. He does not feel the pressure and pain that he was feeling before. We will continue to monitor him closely, as well as his urine output, color and amount. We will monitor his suprapubic catheter site, as well as his cardiovascular, respiratory, and vital signs closely. We will do a series of hemoglobin and hematocrit checks to monitor his blood counts as well. We are appreciative that Dr. Savage was able to come in and assist us with this patient's care. Dictated by MOHAMUD Navarro for Rafy Lee MD cc: Rafy Lee MD MTDD
[2019-08-30 14:44] LABS: HEMATOCRIT 36.2 % (42.0-52.0); HEMOGLOBIN 11.9 g/dL (14.0-18.0)
[2019-08-30 16:16] LABS: URINE SOURCE CATH
[2019-08-30 16:22] LABS: BILIRUBIN URINE NEGATIVE (NEGATIVE); BLOOD URINE LARGE (NEGATIVE); COLOR BROWN; GLUCOSE URINE NEGATIVE (NEGATIVE); KETONE URINE NEGATIVE (NEGATIVE); LEUKOCYTES URINE LARGE (NEGATIVE); NITRITE URINE NEGATIVE (NEGATIVE); PROTEIN URINE 70 mg/dL (NEGATIVE); SP GRAVITY URINE 1.008; TURBIDITY URINE HAZY (CLEAR); UR EPITHELIAL CELLS <10 /HPF (<10); URINE BACTERIA NEGATIVE /HPF; URINE RBC TNTC /HPF (<10); URINE WBC TNTC /HPF (<10); UROBILINOGEN URINE NORMAL (NORMAL)
--- NOTE | 2019-08-30 16:58 | PROGRESS NOTE ---
DATE: 08/30/2019 SUBJECTIVE: Patient resting comfortably in bed. OBJECTIVE: Vital signs: Temperature is 98 degrees, pulse is 90, respiratory rate 18, blood pressure is 80/45, oxygen saturation is 100%. HEENT: Atraumatic, normocephalic. Cardiovascular: S1, S2. Respiratory system: Has evidence of good air entry bilaterally. Abdomen: Soft, nontender. No masses. Suprapubic catheter in place. Extremities: No evidence of edema. Central nervous system: No obvious focal deficit noted. ASSESSMENT AND PLAN: 1. Probable sepsis. Maintain patient on intravenous fluids, as well as antibiotics, and also follow up on cultures. 2. Probable urinary tract infection. Follow up on urine and blood cultures. Maintain patient on antibiotics. 3. Probable pneumonia. Obtain sputum culture, maintain temperature and antibiotics. 4. Suprapubic catheter/neurogenic bladder/hematuria. The patient recently had suprapubic catheter exchange and ended up with significant bleeding, and this had to be exchanged and placed correctly by the urologist. We will follow up on patient's hemoglobin and hematocrit and transfuse packed red blood cells if needed. 5. History of rheumatoid arthritis. Aware. 6. Deep vein thrombosis prophylaxis. SCD. cc: Julien Gordon MD
[2019-08-30] MEDS: ZANAFLEX PO SCH ×2 (17:03→20:52)
[2019-08-30] MEDS: PROAMATINE PO SCH (17:09)
[2019-08-30 19:24] LABS: HEMATOCRIT 34.9 % (42.0-52.0); HEMOGLOBIN 11.3 g/dL (14.0-18.0)
[2019-08-30] MEDS ORDERED: NS 1,000 ML IV ONE (20:28)
[2019-08-30 22:20] LABS: HEMATOCRIT 34.4 % (42.0-52.0); HEMOGLOBIN 11.4 g/dL (14.0-18.0)
[2019-08-31 02:15] LABS: HEMATOCRIT 35.9 % (42.0-52.0); HEMOGLOBIN 11.9 g/dL (14.0-18.0)
[2019-08-31] MEDS: TYLENOL PO PRN ×2 (04:26→14:35)
[2019-08-31] MEDS: ZOSYN 3.375 GM in NS 50 ML IV SCH ×4 (05:55→23:47)
[2019-08-31] MEDS: PRILOSEC PO SCH (05:56)
[2019-08-31 06:57] LABS: BASO# 0.02 X1000 (0.0-0.2); BASO% 0.2 % (0.0-0.8); EOS# 0.09 X1000 (0.0-0.7); HEMATOCRIT 36.7 % (42.0-52.0); IMM GRAN# 0.02 X1000 (0.0-0.04); IMM GRAN% 0.2 % (0.0-0.5); LYMPH# 0.94 X1000 (1.2-3.4); LYMPH% 10.2 % (20.5-51.1); MCH 28.4 PG (27-31); MCHC 32.7 g/dL (33-37); MONO# 0.42 X1000 (0.11-0.59); MONO% 4.6 % (1.7-9.3); MPV 12.3 FL (7.4-10.4); NEUT# 7.71 X1000 (1.4-6.5); NEUT% 83.8 % (42.2-75.2); PLT 126 X1000 (130-400); RBC 4.22 XMIL (4.7-6.1); RDW 14.3 % (11.5-14.5)
[2019-08-31 07:23] LABS: AGAP 12; ALB/GLOB RATIO 1.1; ALBUMIN 2.7 g/dL (3.5-5.0); ALKALINE PHOSPHATASE 45 U/L (32-122); BUN 9 mg/dL (8-22); CALCIUM 8.1 mg/dL (8.8-10.2); CHLORIDE 104 mmol/L (98-107); COSMO 272; CREATININE 0.9 mg/dL (0.7-1.2); ESTIMATED GFR > 60; GLUCOSE 124 mg/dL (70-104); GOT 26 U/L (10-34); GPT 19 U/L (10-44); POTASSIUM 3.5 mmol/L (3.5-5.1); SODIUM 136 mmol/L (136-145); TCO2 20 mmol/L (25-35); TOTAL BILIRUBIN 0.51 mg/dL (0.20-1.00); TOTAL PROTEIN 5.1 g/dL (6.3-8.3)
[2019-08-31] MEDS: DOXYCYCLINE 100 MG in NS 250 ML IV SCH (08:30)
[2019-08-31] MEDS: LAMICTAL PO SCH (08:36)
[2019-08-31] MEDS: ZANAFLEX PO SCH ×3 (08:37→23:46)
[2019-08-31] MEDS: MYRBETRIQ E.R. PO SCH (08:37)
[2019-08-31] MEDS: PROAMATINE PO SCH ×3 (08:38→18:19)
--- NOTE | 2019-08-31 11:35 | Diag Imaging Result Doc PS360 ---
EXAM: CHEST-1 VIEW 08/31/2019 HISTORY: PNEUMONIA TECHNIQUE: AP portable at 1125 COMMENT: There continues to be a diffuse reticulonodular interstitial pattern over both lungs. The inspiration is less optimal than on 08/29/2019. Considering this there has been no appreciable change. Compared to 07/17/2019, the alveolar opacity which was previously present particularly in the left lower lobe has resolved. 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 Electronically signed by Moshe Hunt 08/31/2019 11:33 AM
--- NOTE | 2019-08-31 11:41 | PROGRESS NOTE ---
DATE: 08/31/2019 SUBJECTIVE: The patient is resting comfortably in bed. No new complaints today. OBJECTIVE: Vital Signs: Temperature 97.7 degrees, pulse is 72, respiratory rate is 16, blood pressure is 93/57, oxygen saturation is 94%. HEENT: Head is atraumatic, normocephalic. Cardiovascular System: S1, S2. Respiratory System: Has evidence of good air entry bilaterally. Abdomen: Soft, nontender. No masses felt. Extremities: No evidence of edema. Central Nervous System: No obvious focal deficits noted. Laboratory Data: WBC is 9.2, hematocrit is 36.7, with a platelet count of 126,000. Sodium is 136, potassium 3.5, chloride 104, bicarb 20, BUN is 9, creatinine 0.9. Urine culture shows no growth. Blood culture is positive for gram-negative rods. ASSESSMENT AND PLAN: 1. Probable sepsis. Maintain patient on intravenous fluids as well as antibiotics. Continue to follow up on culture report. 2. Probable urinary tract infection. The patient was started on antibiotics for a possible urinary tract infection. However, urine culture has returned back as no growth. 3. Gram-negative david bacteremia. Continue antibiotics. Follow up on identification as well as sensitivity report. Consult with infectious disease. 4. Probable pneumonia. Continue antibiotics. Repeat chest x-ray. 5. Suprapubic catheter/neurogenic bladder/hematuria. The patient does have a suprapubic catheter in place for probable neurogenic bladder. Had hematuria at the time of presentation. This seems to have resolved. The patient's hematocrit is currently stable. Probably will not require blood transfusion. 6. History of rheumatoid arthritis. Aware. 7. Deep vein thrombosis prophylaxis. Sequential compression devices. cc: Julien Gordon MD
--- NOTE | 2019-08-31 15:22 | INFECTIOUS DISEASE CONSULT REP ---
DATE: 08/31/2019 CONCLUSION: Patient has a gram-negative david bacteremia. I think this originates from a pneumonia. The patient has been complaining of diarrhea for 4 months. The patient told me that he has been having diarrhea on a chronic basis. RECOMMENDATIONS: I agree with treating the patient with Zosyn. I have discontinued doxycycline. I plan to check stool for Clostridium difficile and for culture, and I am going to order stools for Clostridium difficile and culture. DISCUSSION: The patient tells me that 1 to 2 days ago he started feeling very weak and shortness of breath and he had fever. He was admitted to the hospital. His CBC shows a white count of 9200, hemoglobin 12, platelet count 126,000. The day before his white count was 18,270. The patient's creatinine is 0.9, GFR is greater than 60. Glucose today was 124. Liver function studies are normal. Urinalysis showed white cells, but no bacteria. The patient has 2 blood cultures growing a gram-negative david. The urine culture is negative, and the influenza screen is negative. The patient's chest x-ray shows a diffuse reticulonodular pattern. CT scan of the show chest shows diffuse infiltrates. PAST MEDICAL HISTORY/REVIEW OF SYSTEMS: Eyes and Ears: The patient has decreased hearing, and he does wear glasses. Neck: No stiffness. Respiratory: See present illness. Gastrointestinal: The patient, as mentioned above, in the past 4 months has had diarrhea. The patient does not have nausea or vomiting. Genitourinary: The patient has a suprapubic tube in place, and he does not pass any urine through his penis. Neurologic: The patient can walk only with the aid of a walker. He does not have any tremor. His memory is good. He does not have any seizures. Bones, Joints, Muscles: He tells me he has rheumatoid arthritis, but when I examined him I did not see any swollen joints or I did not see any abnormal formation of the patient's hands or feet. Integument: No rash. PREVIOUS HOSPITALIZATIONS AND OPERATIONS: He has had lithotripsy for renal calculi. He has had a placement of a suprapubic catheter. MEDICAL DISEASES: Positive for multiple sclerosis, rheumatoid arthritis, renal calculi, and hypertension. INFECTIOUS DISEASE HISTORY: Positive for urinary tract infection and pneumonia. The patient is having diarrhea. FAMILY HISTORY: Positive for hypertension and cancer. SOCIAL HISTORY: [place] with [place]. He is single. He has a dog as a pet. He smokes cigarettes. He does not drink alcoholic beverages or abuse drugs. He is disabled. PHYSICAL EXAMINATION: Vital Signs: Temperature is 98 degrees, pulse 67, respirations 16, blood pressure is 81/49. Patient weighs 139 pounds. General: This is a somewhat ill-appearing young male. He is in no acute distress. Head/Eyes/Ears/Nose/Throat: He can hear my spoken words and see near objects. There is no drainage from the nose or ears. He does not have any white patches on his tongue. Neck: No meningismus. Lungs: Clear to auscultation. Cardiovascular: Regular heart rate. Abdomen: Soft and nontender. There is suprapubic tube in place. The site is not erythematous or purulent. Neurologic: The patient is awake. It was very difficult for him to move his legs, but he could move his arms okay. There is no tremor. The patient's memory as regarding his medical history appeared to be intact. Integument: No rash. Thank you for the consultation. cc: Wesley Roberto MD
[2019-08-31] MEDS ORDERED: NS 1,000 ML ONE (15:31)
[2019-09-01] MEDS: ZOSYN 3.375 GM in NS 50 ML IV SCH (06:09)
[2019-09-01] MEDS: PRILOSEC PO SCH (06:10)
[2019-09-01] MEDS: LAMICTAL PO SCH (08:31)
[2019-09-01] MEDS: MYRBETRIQ E.R. PO SCH (08:31)
[2019-09-01] MEDS: ZANAFLEX PO SCH ×3 (08:31→20:57)
[2019-09-01] MEDS: PROAMATINE PO SCH ×3 (08:32→20:58)
[2019-09-01] MEDS: ROCEPHIN 2 GM in NS 50 ML IV SCH ×2 (09:57→20:58)
--- NOTE | 2019-09-01 10:50 | INFECTIOUS DISEASE PROGRESS NO ---
DATE: 09/01/2019 PRESENT ILLNESS: Mr. Maloney has an Escherichia coli bacteremia which we think most likely came from his pneumonia. He also has chronic diarrhea which is negative for C difficile toxin and antigen. MEDICATIONS: Today is day 3 of Zosyn 3.375 g IV every 6 hours. PHYSICAL EXAMINATION: Vital Signs: Temperature is 98.3 degrees, pulse rate 67, respiratory rate 20, blood pressure 113/55, O2 saturation is 95% on 1.5 L nasal cannula. General: This is a somewhat ill-appearing, middle-aged gentleman. He is lying in the bed, currently in no acute distress. HEENT: Atraumatic, normocephalic. Oral mucous membranes are pink and moist. Conjunctivae are pink. Neck: Supple. Trachea is midline. Cardiovascular: Heart rate is regular. S1 and S2 noted. Respiratory: Lung sounds are bilaterally clear in the upper lobes, diminished in the bases. No work of breathing is noted. Abdomen: Soft, flat, and nontender. Bowel sounds are active. There is a suprapubic catheter in place. The site is covered with an occlusive dressing. Neurologic: He is awake, alert, oriented. He has difficulty moving his lower extremities which are very stiff, but upper extremities are strong. LABORATORY AND X-RAY: None available today. ASSESSMENT AND PLAN: Mr. Maloney has an Escherichia coli bacteremia which we think most likely came from his pneumonia. There is also chronic diarrhea which tested negative for Clostridium difficile toxin and antigen. He has been on Zosyn which will cover the E coli. We will go ahead and order a repeat set of blood cultures this morning. We will also change him to Rocephin 2 g IV every 12 hours while in the hospital. Over the weekend, we will wait for the blood cultures to come back. If sterile, today will be day 1 of his treatment, which will need to extend 14 days. I talked to the patient at length about home IV antibiotics and PICC line insertion and protocol. He already has home health available. Hopefully on Wednesday, we can put in orders for a PICC line and send him home on once a day Rocephin 2 g IV for 14 days from the first day of sterile blood cultures. We will plan to see him in the office in 2 weeks, once bacteremia treatment is complete, and we should be able to take out the PICC line at that time. These plans have been discussed with and recommended by Dr. Roberto. COMORBIDITIES: Include rheumatoid arthritis, multiple sclerosis, and cigarette smoking. Dictated by MOHAMUD Mar for Wesley Roberto MD cc: Wesley Roberto MD [facility]
[2019-09-01] MEDS ORDERED: DESYREL PO PRN (14:39)
--- NOTE | 2019-09-01 16:27 | PROGRESS NOTE ---
DATE: 08/31/2019 Mr. Maloney reports he is doing great. He reports discomfort in the bladder and sensation of fullness is resolved. He has straw-colored urine draining from suprapubic tube. He denies any pain. Of note, he has had E. Coli growing from his blood. He was seen by Dr. Roberto with Infectious Disease for concern for gram-negative bacteremia likely from pneumonia. PHYSICAL EXAMINATION: Vitals: Temperature 98.6 degrees, Pulse 50, Blood pressure 80/48. General: In no acute distress. Pleasant male. Pulmonary: Inspiratory effort good bilaterally. Abdomen: Scaphoid, nontender to palpation, nondistended. Suprapubic tube in place draining straw- colored urine. : Normal external male genitalia. LABS: White cell count is 9,000, hematocrit is 37, creatinine is 0.9. PERTINENT IMAGING: None this time. ASSESSMENT: 44-year-old male, who came in with bleeding from the suprapubic tube site, as well as transient shortness of breath. He was worked up with CT angiogram which was unremarkable. There is concern for pneumonia and bacteremia. I have explained to the patient that from the urinary standpoint again he likely had a suprapubic catheter that was placed too deeply by the home health nursing staff and inflated and likely in his prostate which caused bleeding. He is much more comfortable and his urine is clear. PLAN: 1. Keep suprapubic tube to gravity drainage. 2. He will have it replaced either by home health or in our office in 4 weeks. 3. Please call with questions. cc: Christian Savage MD
--- NOTE | 2019-09-01 18:41 | PROGRESS NOTE ---
DATE: 09/01/2019 INTERVAL HISTORY: Patient weaned off oxygen today, and saturations remain low but acceptable. No dyspnea. Still a little nonproductive cough. No further bleeding from around his suprapubic catheter. No new complaints. REVIEW OF SYSTEMS: Twelve point review of systems negative except as per interval history. LABS: WBC 9.2, hemoglobin 12.0, hematocrit 36.7. Sodium 136, potassium 3.5, bicarb 20, BUN 9, creatinine 0.9, glucose 124. VITALS: T-max 99.3, pulse 67, respirations 20, blood pressure 101/63, O2 saturation 92% on room air. PHYSICAL EXAMINATION: General: No acute distress. Vitals: As above. HEENT: Normocephalic, atraumatic. Moist mucous membranes. Neck: No cervical adenopathy. Cardiovascular: Slightly bradycardic but regular. No murmurs noted. Pulmonary: Still with some fairly diffuse crackles, although better than previous. Abdomen: Soft, nontender, nondistended. Bowel sounds positive. Suprapubic catheter in place without signs of hemorrhage. Extremities: Peripheral pulses intact. No clubbing or cyanosis. Neurologic: Cranial nerves grossly intact. No new focal deficits identified. Psychiatric: Normal mood and affect. Awake, alert, oriented x3. ASSESSMENT AND PLAN: 1. Pneumonia, sepsis, acute hypoxic respiratory failure. Initially, there was concern for a pulmonary thromboembolism, given markedly elevated D-dimer, but CT angiogram showed only diffuse pneumonia. He is on antibiotics with Rocephin at this point, based on blood cultures growing sensitive Escherichia coli, and seems to be doing well. Now off oxygen. Infectious Disease has seen patient and recommends Rocephin 2 grams every 12 hours. Repeat blood cultures, no growth so far. If those remain negative, then can likely be discharged early next week on ongoing Rocephin. Suspected that the markedly elevated D-dimer was related to his bladder/suprapubic catheter bleed with significant clotting in the bladder. 2. Escherichia coli bacteremia, thought to be related to his pneumonia. Repeat blood cultures, no growth to date. Continue antibiotics and monitor. 3. Neurogenic bladder, chronic suprapubic catheter, marked hematuria with clots. Resolved at this time. Urology essentially signed off. Follow up with Urology as an outpatient. 4. Rheumatoid arthritis, stable.
[2019-09-02 07:14] LABS: BASO# 0.04 X1000 (0.0-0.2); BASO% 0.6 % (0.0-0.8); EOS# 0.16 X1000 (0.0-0.7); EOS% 2.6 % (0.0-10.0); HEMATOCRIT 39.7 % (42.0-52.0); HEMOGLOBIN 13.4 g/dL (14.0-18.0); LYMPH# 1.58 X1000 (1.2-3.4); LYMPH% 25.3 % (20.5-51.1); MCH 28.8 PG (27-31); MCHC 33.8 g/dL (33-37); MCV 85.2 FL (81-99); MONO# 0.38 X1000 (0.11-0.59); MONO% 6.1 % (1.7-9.3); MPV 12.2 FL (7.4-10.4); NEUT# 4.08 X1000 (1.4-6.5); NEUT% 65.4 % (42.2-75.2); PLT 179 X1000 (130-400); RBC 4.66 XMIL (4.7-6.1); RDW 14.2 % (11.5-14.5); WBC 6.24 X1000 (4.8-10.8)
[2019-09-02] MEDS: PRILOSEC PO SCH ×2 (07:21→07:24)
[2019-09-02 07:52] LABS: AGAP 13; BUN 4 mg/dL (8-22); CALCIUM 8.9 mg/dL (8.8-10.2); CHLORIDE 104 mmol/L (98-107); COSMO 274; CREATININE 0.8 mg/dL (0.7-1.2); ESTIMATED GFR > 60; GLUCOSE 91 mg/dL (70-104); POTASSIUM 3.5 mmol/L (3.5-5.1); SODIUM 139 mmol/L (136-145); TCO2 22 mmol/L (25-35)
[2019-09-02] MEDS: ZANAFLEX PO SCH ×3 (10:38→21:16)
[2019-09-02] MEDS: PROAMATINE PO SCH ×3 (10:38→21:16)
[2019-09-02] MEDS: MYRBETRIQ E.R. PO SCH (10:38)
[2019-09-02] MEDS: LAMICTAL PO SCH (10:38)
[2019-09-02] MEDS: ROCEPHIN 2 GM in NS 50 ML IV SCH ×2 (10:38→21:16)
[2019-09-02] MEDS: TYLENOL PO PRN (11:25)
--- NOTE | 2019-09-02 18:37 | PROGRESS NOTE ---
DATE: 09/02/2019 SUBJECTIVE: This patient is no longer using oxygen. He does not have any specific complaints today. Some mild cough. OBJECTIVE: Vital Signs: Temperature 97.8 degrees, pulse 65, respiratory rate 20, blood pressure 107/63, oxygen saturation 95% on room air. HEENT: Head normocephalic, no trauma. PERRLA. Neck: Supple. No JVD. No masses. Central trachea. Chest: Clear to auscultation. Some crepitus at the bases. Abdomen: Soft, nontender, nondistended. Suprapubic catheter in place. No signs of bleeding. Extremities: No edema, no clubbing, no cyanosis. Neurological: This patient is awake, alert. No new focal deficits. He uses a walker to be able to walk. He is oriented x3. LABORATORY: WBC 6.2, hemoglobin 13.4, hematocrit 39.7, platelets 179,000. Sodium 139, potassium 3.5, chloride 104, bicarbonate 22, BUN 4, creatinine 0.8, glucose 91, calcium 8.9. ASSESSMENT AND PLAN: 1. Sepsis due to pneumonia and bacteremia. Initially, he presented with acute hypoxemic respiratory failure. Due to his elevated D-dimer, we asked for a CT angiogram that showed diffuse pneumonia. The patient has been followed by Infectious Disease Department. He is getting ceftriaxone 2 g every 12 hours. Blood culture showed Escherichia coli that is actually sensitive to cephalosporins. The plan is to continue with the same treatment to complete 2 weeks. 2. Hypoxemic respiratory failure due to pneumonia. Resolved. 3. Pneumonia. This is much better. Continue with same management. He is not requiring oxygen at this moment. 4. Bacteremia due to Escherichia coli. Continue with Rocephin. 5. Neurogenic bladder. Continue suprapubic catheter. He had hematuria with clots which resolved. 6. Rheumatoid arthritis. Stable. This patient is able to move, but with a walker at home. cc: Liam Silva MD
[2019-09-03] MEDS: PRILOSEC PO SCH ×2 (05:08→06:29)
[2019-09-03] MEDS: LAMICTAL PO SCH (11:50)
[2019-09-03] MEDS: ROCEPHIN 2 GM in NS 50 ML IV SCH ×2 (11:50→22:50)
[2019-09-03] MEDS: MYRBETRIQ E.R. PO SCH (11:50)
[2019-09-03] MEDS: PROAMATINE PO SCH ×3 (11:51→22:50)
[2019-09-03] MEDS: ZANAFLEX PO SCH ×3 (11:51→22:50)
--- NOTE | 2019-09-03 16:10 | INFECTIOUS DISEASE PROGRESS NO ---
DATE: 09/03/2019 PRESENT ILLNESS: The patient has an Escherichia coli bacteremia which I think most likely originated from his pneumonia. The patient also has chronic diarrhea, but his stools for Clostridium difficile toxin and antigen and for bacterial pathogens are negative. MEDICATIONS: The patient is on Rocephin. Tomorrow will be his 4th day of treatment with antibiotics. PHYSICAL EXAMINATION: Vital Signs: Temperature is 98.7 degrees, pulse 82, respirations 20, blood pressure 127/62. General: This is an ill-appearing young male. He also looks somewhat malnourished. Head, eyes, ears, nose, and throat: He can hear my spoken words and see near objects. He did not have any white coating on his tongue. Neck: No pain with movement. Lungs: Clear to auscultation. Cardiovascular: Regular heart rate. Abdomen: Soft and nontender. The patient has a suprapubic tube in place. There is there is no visible purulence or erythema. Neurologic: The patient is alert. He can only move his legs very little but his upper extremities are normal. LAB: CBC shows a white count of 6240, hemoglobin 13.4, and platelet count 179,000. Patient's Legionella urinary antigen is negative. Blood cultures are negative starting on September 01. ASSESSMENT AND PLAN: The patient as mentioned above has an Escherichia coli bacteremia originates originated from his pneumonia. He has had by tomorrow 4 days of Rocephin therapy and the plan is to send him home on Rocephin for 10 more days at which time I have requested that he be seen at my office and an x-ray will be taken and if things are going well, then the patient will have his PICC replaced taken out and he will be switched to an oral antibiotic such as Keflex or Septra. Following that the patient will be seen again in 2 to 3 weeks and a repeat x-ray will be done to see if his pulmonary infiltrates are clearing. COMORBIDITIES: The patient has rheumatoid arthritis and multiple sclerosis. He also smokes cigarettes. cc: Wesley Roberto MD
--- NOTE | 2019-09-03 17:43 | PROGRESS NOTE ---
DATE: 09/03/2019 SUBJECTIVE: This patient is no longer using oxygen. No specific complaints. The plan is to put a PICC line tomorrow and continue with IV treatment at home. He is bacteremic and 2nd set of cultures are negative. Infectious Disease Department on board. OBJECTIVE: Vital Signs: Temperature 98.5 degrees, pulse 70, respiratory rate 20, blood pressure 98/53, oxygen saturation 95% on room air. HEENT: Head normocephalic, no trauma. PERRLA. Neck: Supple. No JVD. No masses. Central trachea. Chest: Clear to auscultation. Some crepitus at the bases. Abdomen: Soft, nontender, nondistended. Suprapubic catheter in place. No signs of bleeding. Extremities: No clubbing, no cyanosis. Neurological: The patient is awake, alert. No new focal deficits. He is using a walker to be able to walk. He is oriented x3. LABORATORY: No lab work done today. ASSESSMENT AND PLAN: 1. Sepsis due to pneumonia and bacteremia. Initially, he presented with acute hypoxemic respiratory failure. Due to his elevated D-dimer, we asked for a CT angiogram that showed diffuse pneumonia but no pulmonary embolism. The patient has been has been followed by Infectious Disease Department. He is getting ceftriaxone 2 g every 12 hours. Blood culture showed Escherichia coli that is actually sensitive to cephalosporin. The plan is to continue with same treatment to complete 2 weeks. 2. Hypoxemic respiratory failure due to pneumonia, resolved. 3. Pneumonia, much better. Continue with same management. He is not requiring oxygen at this moment. 4. Bacteremia due to Escherichia coli. Continue with Rocephin. 5. Neurogenic bladder. Continue with suprapubic catheter. He had hematuria with clots which resolved. 6. Rheumatoid arthritis, stable. The patient is able to move with a walker at home. cc: Liam Silva MD
--- NOTE | 2019-09-03 18:22 | PROGRESS NOTE ---
DATE: 09/03/2019 SUBJECTIVE: Mr. Maloney states he is comfortable. His suprapubic tube is draining well. I was actually contacted by Dr. Roberto who was under the impression that the patient was concerned about his suprapubic tube and possibly wanted it changed. The patient states that he actually likes this tube better because it is draining better. He denies pain in the suprapubic tube site. OBJECTIVE: Vital signs: T 98.5 degrees, P 70, BP 98/53. General: No acute distress. Thin- appearing male. Abdomen: Nontender nondistended, scaphoid. Suprapubic tube site is clean, dry and intact. : Evans bag is draining straw-colored urine. Normal external male genitalia. PERTINENT LABS: None. ASSESSMENT AND PLAN: A 44-year-old male with neurogenic bladder with suprapubic tube who was in clot retention from a malpositioned tube. He is currently doing well from a urologic standpoint. I have discussed with the patient the difference between a 20-Haitian and an 18-Haitian as on New morning I put in a 20-Haitian. We also discussed the difference between silicone catheter versus standard catheter. I advised that he use a 20-Haitian tube for optimal drainage. PLAN: 1. No urologic intervention needed. 2. He plans on having his suprapubic tube exchanged in 3 and half weeks at our office. 3. Call with questions. cc: Christian Savage MD
[2019-09-04] MEDS: TYLENOL PO PRN (06:24)
[2019-09-04] MEDS: PRILOSEC PO SCH (06:27)
--- NOTE | 2019-09-04 07:23 | Diag Imaging Result Doc PS360 ---
EXAM: CHEST-1 VIEW HISTORY: pneumonia TECHNIQUE: Single view COMPARISON: 08/31/2019 FINDINGS: There are diffuse bilateral infiltrates. These are slightly less dense on the current exam. The lungs are well expanded. No clinically. No pleural effusions identified. IMPRESSION: Mild interval improvement. Electronically signed by Senthil Mei 09/04/2019 7:21 AM
[2019-09-04 08:10] LABS: BASO# 0.04 X1000 (0.0-0.2); BASO% 0.5 % (0.0-0.8); EOS# 0.22 X1000 (0.0-0.7); EOS% 2.8 % (0.0-10.0); HEMATOCRIT 43.8 % (42.0-52.0); HEMOGLOBIN 14.6 g/dL (14.0-18.0); IMM GRAN# 0.03 X1000 (0.0-0.04); IMM GRAN% 0.4 % (0.0-0.5); LYMPH# 1.83 X1000 (1.2-3.4); LYMPH% 22.9 % (20.5-51.1); MCH 28.1 PG (27-31); MCHC 33.3 g/dL (33-37); MCV 84.4 FL (81-99); MONO# 0.52 X1000 (0.11-0.59); MONO% 6.5 % (1.7-9.3); MPV 11.7 FL (7.4-10.4); NEUT# 5.35 X1000 (1.4-6.5); NEUT% 66.9 % (42.2-75.2); PLT 249 X1000 (130-400); RBC 5.19 XMIL (4.7-6.1); RDW 14.3 % (11.5-14.5); WBC 7.99 X1000 (4.8-10.8)
[2019-09-04] MEDS: MYRBETRIQ E.R. PO SCH (08:33)
[2019-09-04] MEDS: ZANAFLEX PO SCH (08:33)
[2019-09-04 08:34] LABS: INR 1.1; PROTIME 14.3 Seconds (11.0-16.0)
[2019-09-04] MEDS: ROCEPHIN 2 GM in NS 50 ML IV SCH (08:34)
[2019-09-04] MEDS: PROAMATINE PO SCH (08:34)
[2019-09-04 08:35] LABS: PTT 34.3 Seconds (22.3-41.8)
[2019-09-04] MEDS: LAMICTAL PO SCH (08:35)
[2019-09-04] MEDS ORDERED: NS 250 ML ONE (11:09)
[2019-09-04 11:17] VITALS: BP 98/57
--- NOTE | 2019-09-04 12:49 | INFECTIOUS DISEASE PROGRESS NO ---
DATE: 09/04/2019 PRESENT ILLNESS: The patient has an Escherichia coli bacteremia, which I think originated most likely from his pneumonia. The patient also has chronic diarrhea, but our workup for the diarrhea, including Clostridium difficile toxin and antigen, and bacterial pathogens of the GI tract, and ova and parasite are all negative. MEDICATIONS: This is the fifth day of treatment with Rocephin. PHYSICAL EXAMINATION: Vital Signs: Temperature is 98.9 degrees, pulse 75, respirations 18, blood pressure 102/67. General: This is an ill-appearing, young male. He looks somewhat malnourished. He is in no acute distress. HEENT: He can hear my spoken words and see near objects. He does not have any white patches in his mouth. Neck: No pain with movement. Lungs: Clear to auscultation. Cardiovascular: Regular heart rate. Abdomen: Soft and nontender. The patient has a suprapubic tube in place. The site is not erythematous or purulent. Neurologic: The patient is alert. He can move his legs very little, but he can move his arms well. IMAGING AND LABORATORY DATA: Chest x-ray shows improvement in the patient's infiltrates. CBC shows a white count of 7990, hemoglobin 14.6, platelet count 249,000. Creatinine is 0.8. GFR is greater than 60. ASSESSMENT AND PLAN: The patient has an Escherichia coli bacteremia, which originated, I think, from his pneumonia. My plan is to treat the patient with Rocephin for at least 14 days. I have requested that he come to my office for an appointment. In the office, he will be examined, and a repeat chest x-ray will be obtained. If the infiltrates have cleared, then I will stop his antibiotics, but if he still does have an infiltrate, I will switch the patient over to an oral antibiotic, such as Keflex or trimethoprim sulfamethoxazole. COMORBIDITIES: The patient has rheumatoid arthritis and multiple sclerosis. He also continues to smoke cigarettes. cc: Wesley Roberto MD
--- NOTE | 2019-09-04 15:29 | Extremity Venous Study ---
PROCEDURE NAME: Venous U/S Bilateral Legs - 08/30/2019 DESCRIPTION OF STUDY: This is a bilateral lower extremity venous duplex and color flow imaging study using a [employer] vivid E9 ultrasound System with a 9 L-D transducer. EXAM DATE: 08/31/2019 REFERRING PROVIDER: MOHAMUD Navarro INCUBATOR OPERATOR: Jose INDICATIONS: Elevated D-dimer. FINDINGS: The right common femoral vein and its branches, deep and superficial femoral veins were satisfactorily imaged. They had flow through them and were compressible. Right popliteal vein and the deep veins below the right knee were all compressible and had flow through them. The superficial veins of the right lower extremity were compressible throughout their length. The left common femoral vein and its branches, deep and superficial femoral veins were also satisfactorily imaged. They had flow through them and were compressible. Left popliteal vein and the deep veins of the left knee were all compressible and had flow through them. The superficial veins of the left lower extremity were compressible throughout their length. INTERPRETATION: No evidence of acute deep or superficial venous thrombosis of the bilateral lower extremities. cc: Erica Tran MD
--- NOTE | 2019-09-05 18:43 | DISCHARGE SUMMARY ---
ADMISSION DATE: 08/29/2019 DISCHARGE DATE: 09/04/2019 DISCHARGE DIAGNOSES: 1. Sepsis due to pneumonia and bacteremia. 2. Hypoxemic respiratory failure due to pneumonia. 3. Pneumonia. 4. Bacteremia due to Escherichia coli. 5. Neurogenic bladder status post exchange of suprapubic tube and irrigation of the clot due to malposition of the suprapubic tube and gross hematuria. 6. Hypoxemic respiratory failure due to pneumonia, resolved. 7. Rheumatoid arthritis. Stable. PROCEDURES PERFORMED: 1. Chest x-ray dated 08/29/2019. Impression: Interstitial pneumonia and/or fibrosis. 2. Pelvic ultrasound dated 08/29/2019. Findings: Suprapubic catheter within the urinary bladder. There some hemorrhage within the urinary bladder. 3. CT angiogram dated 08/30/2019. Impression: No pulmonary emboli, diffuse ground-glass infiltrate as well as nodular infiltrates of the upper lobes. Differential includes acute interstitial pneumonia, hypersensitivity pneumonitis, and multifocal infection. 4. Extremity venous study dated 08/30/2019. Interpretation: No evidence of acute DVT or superficial venous thrombosis. Exchange of suprapubic tube and irrigation of the clot due to malposition of the suprapubic tube and gross hematuria dated 08/30/[address] Savage. 5. Chest x-ray dated 08/31/2019. Impression: Chronic interstitial pneumonia versus fibrosis. 6. Chest x-ray dated 09/04/2019. Mild interval improvement. CONSULTANTS: 1. Urology Department Dr. Savage. 2. Infectious Disease Department Dr. Roberto. HOSPITAL COURSE: A 44-year-old male with a past medical history of neurogenic bladder and chronic suprapubic catheterization, numerous UTIs, and recent admission with diffuse pneumonia. He had a suprapubic catheterization changed by home health nurse this morning. He was admitted on 08/29/2018, and had some bleeding from it afterwards, but did not really notice it significantly, but a couple of hours later he began having sudden onset of dyspnea and increasing work of breathing. He had a significant nonproductive cough and chills. He did not notice any fever. He had an episode of vomiting, but not really any nausea. He has had no leg swelling, no recent traveling, and everything started suddenly that morning. He had a similar episode a month ago that brought him into the hospital. Initial evaluation in the emergency department has significant bleeding out around the suprapubic catheter. Ultrasound suggested significant detritus and/or hemorrhage in the bladder itself as well. He was hypoxemic. Oxygen saturation was 88 on room air and 92 on 4 L. No fever. He was tachycardic so sepsis was presumed. Chest x-ray showed interstitial pneumonia and/or fibrosis, but has no really significant change from any x-ray within the last 2 or 3 months. He had a similar episode in the hospital about a month ago with diffuse infiltrates on the CT scan. CT angiogram for pulmonary embolism was negative at that time, and also at this time as well as the ultrasound of the lower extremity. Because of the mild position and bleeding of the suprapubic catheter, Dr. Savage decided to replace the tube and irrigate the bladder on 08/30/2019. Infectious Disease Department evaluated this patient because we found out that this patient's blood culture was positive for E coli. He was started on ceftriaxone, and at the end he was improving on a daily basis. He will be discharged today with IV treatment to complete 2 weeks of intravenous antibiotics. A PICC line was placed, and we sent this patient home. He did not want to go to a rehab center. At the moment of discharge, this patient was completely awake, alert, and oriented x3. The suprapubic catheter was working fine. He will be changed I believe on a monthly basis by his urologist and/or home health. He is tolerating p.o. He seems to be better. DISCHARGE EXAMINATION: Vital Signs: Temperature 97.8 degrees, pulse 69, respiratory rate 18, blood pressure 198/57, and oxygen saturation 97% on room air. HEENT: Head normocephalic, no trauma. PERRLA. Neck: Supple. No JVD. No masses. Central trachea. Chest: Clear to auscultation with some crepitus at the bases. Abdomen: Soft, nontender, and nondistended. Suprapubic catheter in place. No signs of infection or bleeding. Extremities: No edema. No clubbing. No cyanosis. Neurological: The patient is awake, alert, and oriented x3. No focal deficits, but generalized weakness, and he is using a walker to be able to walk at home. LABORATORY: WBC 7.9, hemoglobin 14.6, hematocrit 43.8, and platelets 249,000. PT 14.3, INR 1.1, and PTT 34.3. DISCHARGE MEDICATIONS: 1. Acetaminophen 650 mg p.o. q.6 hours for fever. 2. Vitamin D 5000 units p.o. daily. 3. Vitamin B12 1000 mcg p.o. daily. 4. Lamictal 25 mg p.o. daily. 5. Urogesic Blue 1 tablet p.o. daily. 6. Mirabegron 1 tablet p.o. daily. 7. Tizanidine 6 mg p.o. t.i.d. 8. Also, this patient will be discharged with ceftriaxone IV daily. Then, the Infectious Disease Department will see him at the end of the treatment. They will repeat the x- ray, and then they will continue with p.o. treatment which could be either Keflex or Bactrim. TIME SPENT: Time discharging this patient 35 minutes. cc: Liam Silva MD MTDD
== END 2019-09-04 13:59 | disposition home health service (06) | DRG 698 ==
LOC: SUPCPDRO → ED 15:49 → EDIPHOLD 20:51 → SUATTDRO 20:51 → 4N 08-30 07:11
PROVIDERS: ATTEND Internal Medicine

== ENCOUNTER 2019-09-07 13:22 | Inpatient (IN) ==
[2019-09-07] MEDS ORDERED: NS 1,000 ML IV ONE ×2 (17:29→18:48)
[2019-09-07] MEDS ORDERED: ZOFRAN IV ONE ×2 (17:29→19:41)
[2019-09-07 18:15] LABS: BASO# 0.07 X1000 (0.0-0.2); BASO% 0.2 % (0.0-0.8); HEMOGLOBIN 11.6 g/dL (14.0-18.0); IMM GRAN# 0.13 X1000 (0.0-0.04); IMM GRAN% 0.4 % (0.0-0.5); LYMPH# 1.58 X1000 (1.2-3.4); LYMPH% 5.4 % (20.5-51.1); MCH 28.2 PG (27-31); MCHC 33.1 g/dL (33-37); MCV 85.2 FL (81-99); MONO# 1.28 X1000 (0.11-0.59); MONO% 4.3 % (1.7-9.3); NEUT# 26.38 X1000 (1.4-6.5); NEUT% 89.7 % (42.2-75.2); PLT 506 X1000 (130-400); RBC 4.11 XMIL (4.7-6.1); RDW 14.2 % (11.5-14.5); WBC 29.44 X1000 (4.8-10.8)
[2019-09-07 18:26] LABS: INR 1.18; PROTIME 15.2 Seconds (11.0-16.0)
[2019-09-07 18:27] LABS: PTT 29.7 Seconds (22.3-41.8)
[2019-09-07 18:39] LABS: AGAP 15; ALB/GLOB RATIO 1.1; ALBUMIN 3.3 g/dL (3.5-5.0); ALKALINE PHOSPHATASE 56 U/L (32-122); BUN 16 mg/dL (8-22); CALCIUM 9.8 mg/dL (8.8-10.2); CHLORIDE 98 mmol/L (98-107); COSMO 277; ESTIMATED GFR > 60; GLUCOSE 210 mg/dL (70-104); GOT 15 U/L (10-34); GPT 12 U/L (10-44); POTASSIUM 4.4 mmol/L (3.5-5.1); SODIUM 135 mmol/L (136-145); TCO2 22 mmol/L (25-35); TOTAL BILIRUBIN 0.27 mg/dL (0.20-1.00); TOTAL PROTEIN 6.4 g/dL (6.3-8.3)
--- NOTE | 2019-09-07 19:07 | PROVIDER DOCUMENTATION ---
This chart was entered by Mary Burt Scribe, acting as scribe for Mt Marino MD. HPI-Male Problem - General Stated Complaint: superpubic cath bleed Time Seen by Provider: 09/07/19 13:33 Source: patient Allergies/Adverse Reactions: Patient Allergies Allergy/AdvReac Type Severity Reaction Status Date / Time No Known Allergies Allergy Verified 09/07/19 14:03 Home Medications: Home Medication List Medication Instructions Recorded Confirmed Last Taken Type Tizanidine HCl 6 mg PO TID@0900,1400,2100 07/12/19 08/30/19 08/29/19 History [place]/Na Phos/Meth Blue/Hyos 1 tab PO DAILY@1400 08/29/19 08/30/19 08/29/19 History [Urogesic-Blue] Mirabegron [Myrbetriq] 1 tab PO DAILY 08/29/19 08/29/19 08/29/19 History Cholecalciferol (Vit D3) [Vitamin 5,000 unit PO DAILY 08/30/19 08/30/19 Unknown History D] Cyanocobalamin (Vitamin B-12) 1,000 mcg PO DAILY 08/30/19 08/30/19 Unknown History [Vitamin B-12] Acetaminophen [Tylenol] 650 mg PO Q6H PRN PRN tab 09/04/19 Unknown Rx Lamotrigine [Lamictal] 25 mg PO DAILY tab 09/04/19 Unknown Rx - History of Present Illness-Male Nature of Presenting Problem: Patient is a 44 year old male who presents with blood in suprapubic catheter. States he noticed having blood in his catheter this morning. Reports catheter was changed 11 days ago. Denies fever. Location of Complaint: reports: suprapubic Quality of Pain: reports: aching Severity in ED: reports: mild Onset/Duration: reports: this morning Timing: reports: still present Context/Activities at Onset: reports: light activity Urinary Symptoms: reports: other (blood present to suprapubic catheter tube) Associated Symptoms: reports: other (bleeding around suprapubic site) Similar Symptoms Previously?: Yes Recently seen or treated by another doctor?: Yes Review of Systems - Adult - REVIEW OF SYSTEMS - ADULT Constitutional: reports: no symptoms reported Eyes: reports: no symptoms reported Ears, Nose, Mouth & Throat: reports: no symptoms reported Cardiovascular: reports: no symptoms reported Respiratory: reports: no symptoms reported Gastrointestinal: reports: no symptoms reported Genitourinary: reports: other (blood present in suprapubic catheter tube and bleeding around suprapubic site.) Musculoskeletal: reports: no symptoms reported Integumentary: reports: no symptoms reported Neurological: reports: no symptoms reported Psychiatric: reports: no symptoms reported Endocrine: reports: no symptoms reported Hematologic/Lymphatic: reports: no symptoms reported Allergic/Immunologic: reports: no symptoms reported All Other Systems: Reviewed and Negative Past History - Adult - PAST MEDICAL HISTORY-ADULT Review of Records: reports: Old Records Reviewed, Nursing Assessment Review, Medications Reviewed, Social history reviewed & non-contributory. Major Childhood Illnesses: reports: denies history Cardiovascular: reports: HTN Respiratory: reports: denies history Gastrointestinal: reports: denies history Obstetrical/Gynecological: reports: denies history Genitourinary: reports: kidney stones, other (indwelling zambrano cath) Musculoskeletal: reports: arthritis, other (RA ) Neurological: reports: other (tremors) Psychiatric: reports: denies history Endocrine/Immune: reports: denies history Other Conditions: reports: denies history - PRIOR SURGERIES/PROCEDURES Surgical/Procedure History: reports: reviewed, not pertinent, tonsillectomy, other ( surgery to repair traumatic cath) - IMMUNIZATION STATUS Childhood Immunizations: See Nurse Assessment Flu Vaccine: See Nurse Assessment - FAMILY HISTORY Family History: reviewed, not pertinent - SOCIAL HISTORY Smoking: cigarettes, less than 1 pack/day Provider spent 3-5 mins advising pt. on dangers of tobacco.: Discussed manners to quit use, and f/u contacts for add'l counseling. Substance Use: denies Physical Exam-General - PHYSICAL EXAM-ADULT Initial Vital Signs Reviewed: Yes - CONSTITUTIONAL General Appearance: alert, no apparent distress, thin. negative: lethargic - RESPIRATORY Respiratory: chest non-tender, lungs clear, normal breath sounds. negative: crackles, rhonchi - CARDIOVASCULAR Cardiovascular: regular rate, rhythm, no gallop, no murmur. negative: tachycardia - GASTROINTESTINAL (ABDOMEN) Abdominal Exam: non tender, other (suprapubic catheter present with bleeding around site and blood present in catheter tube.). negative: rigid - MUSCULOSKELETAL Extremity: non-tender, other (PICC line to left upper arm.). negative: erythema - SKIN Integumentary: normal color, normal turgor, warm/dry. negative: diaphoresis - NEUROLOGIC Neurologic: grossly normal. negative: aphasia, facial droop - PSYCHIATRIC Psych/Mental Status: normal mood/affect, oriented x 3. negative: anxious Progress - PLAN OF CARE/RESULTS Progress/Plan/Lab Results: Vital Signs - 8 hr 09/07/19 13:41 09/07/19 13:48 09/07/19 13:55 Temperature 98.1 F Pulse Rate 102 H Respiratory Rate 16 Blood Pressure 133/86 133/86 131/85 O2 Sat by Pulse Oximetry 96 94 L 96 09/07/19 13:59 09/07/19 14:01 09/07/19 14:15 Temperature Pulse Rate Respiratory Rate Blood Pressure 144/98 O2 Sat by Pulse Oximetry 93 L 94 L 97 09/07/19 14:29 09/07/19 14:31 09/07/19 14:45 Temperature Pulse Rate Respiratory Rate Blood Pressure 129/83 O2 Sat by Pulse Oximetry 95 96 94 L 09/07/19 15:00 09/07/19 15:15 09/07/19 15:29 Temperature Pulse Rate Respiratory Rate Blood Pressure 115/76 O2 Sat by Pulse Oximetry 94 L 94 L 94 L 09/07/19 15:31 09/07/19 15:45 09/07/19 15:59 Temperature Pulse Rate Respiratory Rate Blood Pressure 117/81 O2 Sat by Pulse Oximetry 95 94 L 94 L 09/07/19 16:01 09/07/19 16:15 09/07/19 16:29 Temperature Pulse Rate 116 H 120 H Respiratory Rate 23 20 Blood Pressure 100/65 O2 Sat by Pulse Oximetry 96 95 95 09/07/19 16:31 09/07/19 16:45 09/07/19 17:01 Temperature Pulse Rate 121 H 120 H 124 H Respiratory Rate 21 21 32 H Blood Pressure O2 Sat by Pulse Oximetry 94 L 98 96 09/07/19 17:15 09/07/19 17:25 09/07/19 17:30 Temperature Pulse Rate 126 H 122 H 128 H Respiratory Rate 30 H 24 20 Blood Pressure 93/67 85/52 O2 Sat by Pulse Oximetry 96 95 96 09/07/19 17:31 09/07/19 17:41 09/07/19 17:46 Temperature Pulse Rate 125 H 126 H 123 H Respiratory Rate 25 H 21 29 H Blood Pressure 87/64 O2 Sat by Pulse Oximetry 96 97 95 09/07/19 17:59 09/07/19 18:01 09/07/19 18:14 Temperature Pulse Rate 123 H 123 H 122 H Respiratory Rate 18 17 17 Blood Pressure 91/63 100/67 O2 Sat by Pulse Oximetry 97 97 96 09/07/19 18:16 Temperature Pulse Rate 122 H Respiratory Rate 18 Blood Pressure O2 Sat by Pulse Oximetry 95 Laboratory Results - last 24 hr 09/07/19 09/07/19 09/07/19 17:45 17:45 17:45 WBC 29.44 H RBC 4.11 L Hgb 11.6 L Hct 35.0 L MCV 85.2 MCH 28.2 MCHC 33.1 RDW Std Deviation 14.2 Plt Count 506 H MPV 12.0 H Immature Gran % (Auto) 0.4 Neut % (Auto) 89.7 H Lymph % (Auto) 5.4 L [place] % (Auto) 4.3 Eos % (Auto) 0.0 Baso % (Auto) 0.2 Immature Gran # (Auto) 0.13 H Neut # (Auto) 26.38 H Lymph # (Auto) 1.58 [place] # (Auto) 1.28 H Eos # (Auto) 0.00 Baso # (Auto) 0.07 PT 15.2 INR 1.18 PTT (Actin FS) 29.7 Sodium 135 L Potassium 4.4 Chloride 98 Carbon Dioxide 22 L Anion Gap 15 BUN 16 Creatinine 1.0 Estimated GFR/1.73 m2 > 60 BUN/Creatinine Ratio 16 Glucose 210 H Calculated Osmolality 277 Calcium 9.8 Total Bilirubin 0.27 AST 15 ALT 12 Alkaline Phosphatase 56 Total Protein 6.4 Albumin 3.3 L Globulin 3.1 Albumin/Globulin Ratio 1.1 Orders Category Date Time Status Irrigate Bladder DIRECTED Care 09/07/19 13:42 Active Misc. NRSG Communication Order DIRECTED Care 09/07/19 17:09 Active NPO Diet 09/08/19 00:01 Active CBC WITH DIFF [HEME] Stat Lab 09/07/19 17:45 Completed COMPREHENSIVE METABOLIC PANEL [CHEM] Stat Lab 09/07/19 17:45 Completed PROTIME WITH INR [COAG] Stat Lab 09/07/19 17:45 Completed PTT [COAG] Stat Lab 09/07/19 17:45 Completed 0.9% Sodium Chloride Inj [Ns] 1,000 ml Med 09/07/19 17:29 Discontinued IV 999 mls/hr 0.9% Sodium Chloride Inj [Ns] 1,000 ml Med 09/07/19 18:48 Active IV 999 mls/hr Ondansetron [Zofran] Med 09/07/19 17:29 Discontinued 4 mg IV NOW ONE Result Diagrams: 09/07/19 17:45 09/07/19 17:45 - CONSULTS/PCP/HOSPITALIST Notification #1 *Consult/PCP/Hospitalist*: Dr. Marquez Time Discussed: 17:03 Reason/Comments: Dr. Marino consulted with Dr. Marquez about patient. Consult Disposition: other #2 Consult: Rosa Time Discussed: 18:45 Consult Disposition: Admit Departure - Departure Date of Disposition Decision: 09/07/19 Time of Disposition Decision: 18:45 DIAGNOSIS: Bladder hemorrhage Disposition: ADMITTED INPATIENT 09 Certified Medical Emergency: Emergent Condition: Stable Referrals and Follow-Ups: Dominick Guillaume MD [Primary Care Provider] - - Critical Care Note This patient required my direct & personal management of CC.: No Attestation - Physician/ NE Attestation The physician spent face to face time with patient:: Yes Advanced Practice Provider documentation review:: Supervising physician onsite and consulted in the evaluation and care of this patient. The physician did have a face to face encounter with the patient. This chart was documented by the indicated scribe, (Mary Burt Scribe) and accurately reflects the services I performed and decisions made by me, Mt Marino MD, as attested by the provider's signature.
[2019-09-07 20:00] LABS: HEMOGLOBIN A1C 4.8 % (4.8-6.0)
--- NOTE | 2019-09-07 20:42 | HISTORY AND PHYSICAL ---
PRIMARY CARE PHYSICIAN: Dr. Dominick Guillaume. REASON FOR ADMISSION: Severe hematuria from suprapubic cystostomy site. HISTORY OF PRESENT ILLNESS: Mr. Niko Maloney is a 44-year-old male with past medical history of neurogenic bladder with a chronic indwelling suprapubic catheter. Recently discharged from our facility 3 days ago, where he had profound hematuria complicated by bacteremia and subsequent sepsis from pneumonia. He was sent home on IV Rocephin for E coli bacteremia, which he has only taken 3 days' worth since he left the hospital, and he is scheduled to have 4-5 more days to complete this treatment. The patient came in today because of profound hematuria noted today while he was showering. He estimates about approximately just over a complete urinal full, about 500 mL of lidia blood and clots was passed. He also complained of intermittent suprapubic sharp, crampy pain as the blood drained out of his suprapubic catheter and around the suprapubic catheter. He also complained of some vomiting which was nonbloody. No coffee grounds. He states he took about 400 mg of Motrin the night before. Otherwise, he denies bleeding from any other orifice. He had 1 loose stool today. He says he feels a little weak, very thirsty, and a little lightheaded, but otherwise no other additional complaints. He admits to having some chills, but no fever. No cardiorespiratory complaints. No neurological issues. REVIEW OF SYSTEMS: He admits to having a chronic rash between his groin and buttock area from his previous admission, but states that since he has been applying cream, this has improved. Otherwise, a 12-system review was done, positive findings per HPI. ALLERGIES: No known allergies. HOME MEDICATIONS: He remembers taking Myrbetriq. He is also on Lamictal, I believe 25 mg daily; Tylenol 650 q.4 p.r.n., tizanidine 6 mg t.i.d. FAMILY HISTORY: Both parents are alive. No history of heart disease or type 2 diabetes in first- degree relatives. SOCIAL HISTORY: Lives with his dad, which he says his dad has a hard time getting around because of low back pain. He no longer smokes or drinks, nor does he use illicit drugs. PAST MEDICAL HISTORY: Notable for rheumatoid arthritis, chronic suprapubic cystostomy which he believes is secondary to neurogenic bladder from a prostatic problem. LABORATORY DATA: His lab work is notable for white count of 29,000, which is elevated from 3 days ago when it was 7000, hemoglobin and hematocrit 11 and 35, which is down from a hematocrit of 43, platelet count 506,000, neutrophil 89. Sodium 135, BUN 16, creatinine 1.0, glucose 210. PT and PTT normal. PHYSICAL EXAMINATION: GENERAL: Thin, middle-aged, white male, who is not in acute distress. He is A O x3, with normal mood and affect. VITAL SIGNS: Blood pressure is 100/60, heart rate 122 to 130, respiratory rate is 18, temperature is 98.1. He is 95% on room air. HEENT: Head is normocephalic, atraumatic. Eyes, PERRL, EOMI. He is anicteric, but pale. ENT/oropharynx exam shows mild xerostomia, but no oropharyngeal exudates or erythema. No central cyanosis. NECK: Supple. No JVD or carotid bruit. No thyromegaly. CHEST: Clear when auscultated with good air entry in both lung hernandez. CARDIOVASCULAR: First and second heart sounds heard. No gallops, murmurs, rubs. Rhythm is regular. ABDOMEN: Slightly scaphoid, soft with tenderness around the suprapubic area. There is a suprapubic catheter emanating from that area, and there is some blood oozing around the ostomy site and a lot of lidia blood draining from the catheter itself. RECTAL: Deferred. EXTREMITIES: Patient has significantly decreased pulse volume, regular, symmetrical. No edema, clubbing, or peripheral cyanosis. NEUROLOGICAL: No gross focal deficits. SKIN: Intact. There is no breakdown, lesion, or erythema. Good turgor. MUSCLE: Grossly normal. ASSESSMENT: 1. Severe hematuria. Cannot rule out coexisting bladder infection and catheter malposition. 2. Hemorrhagic anemia. 3. Rheumatoid arthritis. 4. Hyperglycemia. Etiology yet to be determined. Could be likely be secondary to stress. 5. Neurogenic bladder. PLAN: We will modify antibiotics by switching from Rocephin to Maxipime to cover for Pseudomonas being that the patient just left the hospital. Dr. Marquez has been notified and will see the patient. We will do serial hemoglobin and hematocrit, and we will transfuse if hemoglobin less than 7. Continue IV crystalloid infusion. We will treat patient symptomatically otherwise for pain and nausea. Also, patient did have 1 episode of loose stools, please be observant for possibility of C difficile in this patient. cc: MD Dominick Rivera MD William E. Hughes, MD [facility]
[2019-09-07] MEDS ORDERED: ZOFRAN IV PRN (22:53)
[2019-09-07] MEDS ORDERED: TYLENOL PO PRN (22:53)
[2019-09-07] MEDS ORDERED: MORPHINE IV PRN (22:53)
[2019-09-07 23:12] LABS: HEMATOCRIT 30.4 % (42.0-52.0)
[2019-09-07] MEDS ORDERED: CALMOSEPTINE OINTMENT TOP PRN (23:24)
[2019-09-07] MEDS: MAXIPIME 2 GM/NS 2 GM/100 ML IVPB IV SCH (23:34)
[2019-09-07] MEDS: NS 1,000 ML IV SCH (23:35)
[2019-09-08] MEDS: MELATONIN PO SCH ×2 (00:42→20:30)
[2019-09-08] MEDS: CULTURELLE PO SCH ×3 (05:00→20:30)
[2019-09-08 07:06] LABS: BASO# 0.02 X1000 (0.0-0.2); BASO% 0.1 % (0.0-0.8); HEMATOCRIT 26.2 % (42.0-52.0); HEMOGLOBIN 8.4 g/dL (14.0-18.0); IMM GRAN# 0.03 X1000 (0.0-0.04); IMM GRAN% 0.2 % (0.0-0.5); LYMPH# 1.85 X1000 (1.2-3.4); LYMPH% 13.1 % (20.5-51.1); MCH 27.7 PG (27-31); MCHC 32.1 g/dL (33-37); MCV 86.5 FL (81-99); MONO% 4.2 % (1.7-9.3); MPV 11.3 FL (7.4-10.4); NEUT# 11.67 X1000 (1.4-6.5); NEUT% 82.4 % (42.2-75.2); PLT 309 X1000 (130-400); RBC 3.03 XMIL (4.7-6.1); RDW 13.9 % (11.5-14.5); WBC 14.17 X1000 (4.8-10.8)
[2019-09-08 07:27] LABS: AGAP 12; BUN 17 mg/dL (8-22); CALCIUM 8.5 mg/dL (8.8-10.2); CHLORIDE 105 mmol/L (98-107); COSMO 278; ESTIMATED GFR > 60; GLUCOSE 120 mg/dL (70-104); MAGNESIUM 1.6 mg/dL (1.5-2.7); POTASSIUM 5.1 mmol/L (3.5-5.1); PREALBUMIN 13.1 mg/dL (20-40); SODIUM 138 mmol/L (136-145); TCO2 21 mmol/L (25-35)
[2019-09-08] MEDS: MAXIPIME 2 GM/NS 2 GM/100 ML IVPB IV SCH ×3 (10:03→23:13)
[2019-09-08] MEDS ORDERED: VERSED ONE (10:37)
[2019-09-08] MEDS ORDERED: FENTANYL ONE (10:37)
[2019-09-08] MEDS ORDERED: XYLOCAINE-MPF 2% ONE (10:38)
[2019-09-08] MEDS ORDERED: DIPRIVAN 1% ONE (10:38)
[2019-09-08] MEDS ORDERED: DECADRON ONE (11:14)
[2019-09-08] MEDS ORDERED: ZOFRAN ONE (11:14)
[2019-09-08] MEDS ORDERED: SODIUM CHLORIDE 0.9% 10 ML ONE ×2 (11:15→11:51)
[2019-09-08] MEDS ORDERED: NEO-SYNEPHRINE ONE (11:15)
[2019-09-08] MEDS ORDERED: ALBUMIN 25% ONE (11:37)
[2019-09-08] MEDS ORDERED: PITRESSIN ONE (11:42)
--- NOTE | 2019-09-08 14:38 | CONSULTATION ---
DATE OF CONSULTATION: 09/08/2019 ATTENDING AND REFERRING PHYSICIAN: Hospitalist HISTORY OF PRESENT ILLNESS: This 44-year-old male with neurogenic bladder that is managed with an indwelling suprapubic tube was admitted with significant hematuria. He was discharged from this facility about 3 days ago because about 1 week ago the suprapubic tube was not positioned and the balloon blown up and he started having significant hematuria. He was seen in the emergency room and was also noted to have pneumonia and was admitted. The suprapubic tube was irrigated and the urine completely cleared. When he was discharged 3 days ago his urine was completely clear. The patient states that while he was taking a shower he noted severe hematuria with clots. He came to the emergency room and again had significant amount of blood and clots in the urine. The patient states he feels okay. His hematocrit decreased from 38 down to 26. PAST MEDICAL HISTORY: Rheumatoid arthritis, probable multiple sclerosis, hypertension, history of stones. PAST SURGICAL HISTORY: Cystoscopic exam with some bladder stone removal, placement of suprapubic tube. SOCIAL HISTORY: Tobacco use. Occasional alcohol use. ALLERGIES: No known drug allergies. REVIEW OF SYSTEMS: He denies any problems with diabetes, strokes, seizures, or bowel problems. He is still being treated for pneumonia with Rocephin IV the that he gets at home. PHYSICAL EXAMINATION: General: A normally developed, thin, age apparent, white male, oriented in all ways and cooperative. HEENT: Normal for age. Lungs: Clear. Cardiovascular: Regular rate and rhythm. Abdomen: Scaphoid soft, nontender. No hepatosplenomegaly or masses. Normal bowel sounds. : Suprapubic tube in place with some blood around the suprapubic tube site. There is very dark blood draining from the suprapubic tube. Normal male both testes down. Scrotal exam is normal.Rectal: Deferred. Extremities: No clubbing, cyanosis, or edema. Neurologic: No focal deficits. To walk he has to use a walker and he has to pull himself up to a standing position. LABORATORY EVALUATION: He has a white count of 14.17, hemoglobin of 8.4, hematocrit 26.2. Serum electrolytes are normal. BUN 17, creatinine 1.0. IMPRESSION: 1. Patient with history of rheumatoid arthritis, possible multiple sclerosis with neurogenic bladder and a suprapubic tube draining dark bloody urine. 2. Hematuria is probably due to previous Evans catheter trauma. RECOMMEND: Cystoscopic exam, clot irrigation and fulguration of any bleeding areas. The planned procedure, benefits versus risks, possible complications, including, but not limited to, bleeding, infection, not finding a source for bleeding, recurrence of bleeding was discussed. He seems to understand and desires to proceed. He understands that my partner Dr. Savage will be performing the procedure and he is in complete agreement. cc: Chang Marquez MD
[2019-09-08] MEDS: NS 1,000 ML IV SCH ×2 (14:54→17:15)
[2019-09-08 16:11] LABS: HEMATOCRIT 20.6 % (42.0-52.0); HEMOGLOBIN 6.5 g/dL (14.0-18.0)
--- NOTE | 2019-09-08 17:57 | PROGRESS NOTE ---
DATE: 09/08/2019 SUBJECTIVE: This patient has been taken to the OR today by Dr. Marquez, and now he is getting his bladder irrigated. I do not have the preliminary report. It looks like he got a cystoscopic exam and some biopsies done. He is still having some hematuria, but that is coming out from the irrigation. I will reorder an H and H, and then we will continue with IV fluids. His blood pressure has been borderline low. OBJECTIVE: Vital Signs: Temperature 98.3 degrees, pulse 93, respiratory rate 26, blood pressure 98/62, oxygen saturation 96 on room air. HEENT: Head normocephalic, atraumatic. PERRLA. Neck: Supple. No JVD. No masses. Central trachea. Chest: Clear to auscultation. No wheezing. No rales. Abdomen: Soft. Some discomfort to palpation around the periumbilical area and suprapubic area. He has a suprapubic catheter. He has been placed on bladder irrigation. Extremities: No edema, no clubbing, no cyanosis. Neurological Examination: He is awake, oriented x3. No focal deficits but weakness. LABORATORY DATA: WBC 14.1, hemoglobin 8.4, hematocrit 26.2, platelets 309,000. Sodium 138, potassium 5.1, chloride 105, bicarbonate 21, BUN 17, creatinine 1, glucose 120, calcium 8.5, magnesium 1.6. ASSESSMENT AND PLAN: 1. Severe hematuria, status post surgery, probably cystoscopic exam with a biopsy, now he is on bladder irrigation. We will continue with same management. Urology Department on board. 2. History of rheumatoid arthritis, aware. 3. Hyperglycemia, no diabetes, probably due to stress. 4. Neurogenic bladder. Aware. 5. Recently discharged due to sepsis due to pneumonia and bacteremia. Aware. 6. Bacteremia due to Escherichia coli, aware. 7. Hypoxemic respiratory failure due to pneumonia, recently, resolved. 8. Anemia, likely hemorrhagic and chronic disease, aware. cc: Liam Silva MD
[2019-09-08] MEDS ORDERED: NS 500 ML IV ONE (18:11)
[2019-09-09] MEDS: NS 1,000 ML IV SCH ×4 (02:03→21:17)
[2019-09-09 02:12] LABS: BASO# 0.01 X1000 (0.0-0.2); BASO% 0.1 % (0.0-0.8); HEMATOCRIT 23.8 % (42.0-52.0); HEMOGLOBIN 7.6 g/dL (14.0-18.0); IMM GRAN# 0.04 X1000 (0.0-0.04); IMM GRAN% 0.3 % (0.0-0.5); LYMPH# 1.29 X1000 (1.2-3.4); LYMPH% 10.9 % (20.5-51.1); MCH 27.4 PG (27-31); MCHC 31.9 g/dL (33-37); MCV 85.9 FL (81-99); MONO# 0.42 X1000 (0.11-0.59); MONO% 3.5 % (1.7-9.3); MPV 10.4 FL (7.4-10.4); NEUT# 10.09 X1000 (1.4-6.5); NEUT% 85.2 % (42.2-75.2); PLT 231 X1000 (130-400); RBC 2.77 XMIL (4.7-6.1); RDW 14.2 % (11.5-14.5); WBC 11.85 X1000 (4.8-10.8)
[2019-09-09 02:26] LABS: INR 1.17
[2019-09-09 02:27] LABS: PTT 29.1 Seconds (22.3-41.8)
[2019-09-09 02:33] LABS: AGAP 10; ALB/GLOB RATIO 1.5; ALBUMIN 2.9 g/dL (3.5-5.0); ALKALINE PHOSPHATASE 40 U/L (32-122); BUN 9 mg/dL (8-22); CALCIUM 8.1 mg/dL (8.8-10.2); CHLORIDE 104 mmol/L (98-107); CK PROFILE 108 U/L (24-204); COSMO 274; CREATININE 0.8 mg/dL (0.7-1.2); ESTIMATED GFR > 60; GLUCOSE 120 mg/dL (70-104); GOT 12 U/L (10-34); GPT 8 U/L (10-44); SODIUM 137 mmol/L (136-145); TCO2 23 mmol/L (25-35); TOTAL BILIRUBIN 0.21 mg/dL (0.20-1.00); TOTAL PROTEIN 4.9 g/dL (6.3-8.3)
[2019-09-09 07:21] LABS: BASO# 0.01 X1000 (0.0-0.2); BASO% 0.1 % (0.0-0.8); EOS# 0.02 X1000 (0.0-0.7); EOS% 0.2 % (0.0-10.0); HEMATOCRIT 25.7 % (42.0-52.0); HEMOGLOBIN 8.3 g/dL (14.0-18.0); IMM GRAN# 0.02 X1000 (0.0-0.04); IMM GRAN% 0.2 % (0.0-0.5); LYMPH# 1.65 X1000 (1.2-3.4); LYMPH% 15.1 % (20.5-51.1); MCH 27.6 PG (27-31); MCHC 32.3 g/dL (33-37); MCV 85.4 FL (81-99); MONO# 0.59 X1000 (0.11-0.59); MONO% 5.4 % (1.7-9.3); MPV 11.1 FL (7.4-10.4); NEUT# 8.61 X1000 (1.4-6.5); PLT 227 X1000 (130-400); RBC 3.01 XMIL (4.7-6.1); RDW 14.5 % (11.5-14.5)
[2019-09-09 08:16] LABS: AGAP 10; BUN 7 mg/dL (8-22); CALCIUM 8.1 mg/dL (8.8-10.2); CHLORIDE 106 mmol/L (98-107); COSMO 275; CREATININE 0.8 mg/dL (0.7-1.2); ESTIMATED GFR > 60; GLUCOSE 93 mg/dL (70-104); POTASSIUM 3.5 mmol/L (3.5-5.1); SODIUM 139 mmol/L (136-145); TCO2 23 mmol/L (25-35)
--- NOTE | 2019-09-09 08:37 | Diag Imaging Result Doc PS360 ---
EXAM: CHEST-1 VIEW INDICATION: sepsis protocol initiation TECHNIQUE: One view COMPARISON: 09/04/2019 FINDINGS: There has been interval placement of a left PICC line. The tip projects over the lower SVC in the expected position. Diffuse bilateral airspace infiltrates are grossly unchanged. No new consolidation is identified. Cardiac silhouette is stable. IMPRESSION: Stable chest. Electronically signed by Marcel Mayes 09/09/2019 8:35 AM
[2019-09-09] MEDS: MAXIPIME 2 GM/NS 2 GM/100 ML IVPB IV SCH ×2 (10:25→21:20)
[2019-09-09] MEDS: CULTURELLE PO SCH ×2 (10:25→21:19)
--- NOTE | 2019-09-09 14:46 | OPERATIVE NOTE ---
PROCEDURE DATE: 09/08/2019 SURGEON: Dr. Christian Savage. PREOPERATIVE DIAGNOSES: 1. Gross hematuria. 2. Clot retention. 3. Neurogenic bladder. 4. Suprapubic tube. POSTOPERATIVE DIAGNOSES: 1. Gross hematuria. 2. Clot retention. 3. Neurogenic bladder. 4. Suprapubic tube. PROCEDURE: Cystoscopy with extensive clot evacuation, fulguration of bleeding with bladder biopsies. INDICATIONS: A 44-year-old male with history of neurogenic bladder who has had a suprapubic tube for approximately 15 years. He has had an episode 11 days ago when he presented to the ER after his suprapubic tube was exchanged by home health nurse and he developed significant gross hematuria. His suprapubic tube was replaced and bladder was irrigated. He was discharged home with urine relatively clear. He reports he went home and did great for several days but then noted return of bloody urine after he took a shower and had a bowel movement. He came in and was admitted with clot retention. He dropped his hematocrit significantly from 30 to 20. He was counseled on intervention. FINDINGS: His bladder was very capacious with approximately 400 grams of clot. I spent at least 45 minutes just irrigating the clot and washing out the bladder. The bladder itself had hyperemic appearance with several ulcerative-appearing lesions that were actively bleeding. Those were biopsied and cauterized. 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 He has distal shaft hypospadias which were dilated as 21-Stateless cystoscope would not go in easily. DESCRIPTION OF PROCEDURE: After obtaining informed consent, patient was brought to the operating room. I counseled him on the fact that we may have to go from below to see if some of his bleeding was coming from his prostate given his history. He was prepped and draped in a sterile fashion. I attempted to introduce a 21 Stateless rigid cystoscope but could not be negotiate it past the meatus at the distal penile shaft. Hence, I used female dilators to stretch the meatus from 16-Stateless to 26-Stateless. This followed by introduction of a 21-Stateless rigid cystoscope. His penile urethra was unremarkable until the proximal end of the penile urethra in near the bulb where a blind-ending area was seen. I attempted to place a PTFE wire via the cystoscope and see if I could get past the blind-end area but I could not do so. Hence, we elected to proceed with access through his suprapubic tube. As we removed his suprapubic tube, I placed a 24-Stateless rigid cystoscope into the suprapubic tract. The bladder was then entered. There was a very, very large amount of clot seen. I then spent a considerable amount of time (approximately 45 minutes) irrigating and evacuating multiple amount of clot with a Janet syringe. Once that was done, repeat examination revealed very friable-appearing bladder mucosa throughout the bladder. I used cold cup biopsy graspers to biopsy some of the active bleeding site. They appeared to be more ulcerative in appearance rather than concerning for bladder cancer. This was followed by fulguration of the areas that were bleeding with Bugbee electrocautery with a setting of 35 on coag. We then reinspected the bladder and there was no evidence of sizable residual clot. Hemostasis appeared to be adequate. The cystoscope was then withdrawn and a 24-Stateless 3-way hematuria catheter was introduced into the suprapubic tract with 10 mL of sterile water instilled in the balloon. He was extubated and connected to continuous bladder irrigation, taken PACU for further recovery. Estimated blood loss, none active. Again, 400 grams of clot approximately were removed. COMPLICATIONS: None. DRAINS: A 24-Stateless 3-way Evans catheter connected to continuous bladder irrigation. SPECIMENS: Labeled as bladder lesions. DISPOSITION: To PACU and subsequently to floor for observation with continuous bladder irrigation. cc: Christian Savage MD
--- NOTE | 2019-09-09 16:40 | PROGRESS NOTE ---
DATE: 09/09/2019 SUBJECTIVE: The patient seems to be feeling better today. I will continue with same management. He received a couple units of PRBCs. His hemoglobin improved from 6.5 to 8.3; and as per the patient, he is asymptomatic right now. OBJECTIVE: Vital Signs: Temperature 98.1 degrees, pulse 87, respiratory rate 16, blood pressure 102/54, oxygen saturation 95% on room air. HEENT: Head normocephalic, nontraumatic. PERRLA. Neck: Supple. No JVD. No masses. Central trachea. Chest: Clear to auscultation. No wheezing. No rales. Abdomen: Soft. Some discomfort to palpation around the periumbilical area and suprapubic area. He has a suprapubic catheter and he is on bladder irrigation. The urine looks much clearer, a little bit pinkish though. Extremities: No edema, no clubbing, no cyanosis. Neurological: The patient is awake and alert. He is oriented x3. No focal deficits. LABORATORY: WBC 10.9, hemoglobin 8.3, hematocrit 25.7, platelets 227,000. Sodium 139, potassium 3.5, chloride 106, bicarbonate 23, BUN 7, creatinine 0.8, glucose 93, calcium 8.1. ASSESSMENT AND PLAN: 1. Severe hematuria status post status cystoscopic examination, clot irrigation, and fulguration of any bleeding areas. I believe they also took some biopsies. He seems to be better. Urology Department following. 2. History of rheumatoid arthritis. Aware. 3. Hyperglycemia. No diabetes. Probably due to stress. 4. Neurogenic bladder. Aware. 5. Bacteremia due to Escherichia coli. Continue with same management. 6. Recent discharge due to sepsis and due to pneumonia and bacteremia. Aware. 7. Hypoxemic respiratory failure due to pneumonia. That was recently and it has been resolved during the previous hospitalization. 8. Anemia, likely hemorrhagic. Status post 2 packed red blood cells. Better. cc: Liam Silva MD
[2019-09-09] MEDS: MELATONIN PO SCH (21:19)
--- NOTE | 2019-09-09 22:16 | PROGRESS NOTE ---
DATE: 09/09/2019 SUBJECTIVE: Mr. Maloney had a good night overnight. He reports he was irrigated once by nursing staff but not on account of clot but because they wanted to make sure it was flowing well. He denies any abdominal pain. OBJECTIVE: T 98.1, P 87, BP 102/54. His urine output was reported of an amount of 400 mL, although I suspect there is more but it is obscured due to CBI. General: No acute distress. Abdomen: Soft, nontender, and nondistended. Suprapubic tube in good place, draining. Very light pink urine without clots visible. LABORATORIES: White cell count is 12,000, hematocrit is 26. This is after he was transfused 2 units of blood. His creatinine is 0.8. ASSESSMENT: A 44-year-old male with neurogenic bladder and suprapubic tube who has had horrible gross hematuria with clot retention. He is postoperative day 1 after cystoscopy with extensive clot evacuation, fulguration of bleeding, bladder biopsies. He is doing better. I have discussed with the patient that my examination intraoperatively was somewhat limited, given the extensive amount of clot and the amount that I had to irrigate out. But, to the best my knowledge, I did not see any concerning lesions such as bladder cancer. I am not certain as to what was the origin of his bleeding, other than the original and 08/29/2019 when his suprapubic tube was changed by home health staff in malposition and that is when hematuria developed. There was trauma to the bladder or possibly the prostatic urethra and he did better originally but then re-bled. I have discussed with the patient that we will wean him off the continuous bladder irrigation and then, sometime next week, it would be prudent for Dr. Marquez to perform cystoscopy to make sure there are no suspicious lesions that may have been missed yesterday now that he does not have any more clot. The patient voiced understanding. PLAN: 1. Continue bladder irrigation and wean him off of it. I have discussed with the charge nurse that we need to switch his tubing to the one that has a dial for flow control, as opposed to a clamp as that will allow us to wean him off easier. 2. Once continuous bladder irrigation is turned off and his urine remains pink to clear without clotting, he will be cleared for discharge from a urologic standpoint, but obviously will defer to our hospitalist colleagues. 3. We will follow. cc: Christian Savage MD
[2019-09-10] MEDS: MAXIPIME 2 GM/NS 2 GM/100 ML IVPB IV SCH ×3 (04:01→22:55)
[2019-09-10 07:06] LABS: HEMATOCRIT 26.8 % (42.0-52.0); HEMOGLOBIN 8.6 g/dL (14.0-18.0); MCH 27.7 PG (27-31); MCHC 32.1 g/dL (33-37); MCV 86.2 FL (81-99); RBC 3.11 XMIL (4.7-6.1); RDW 14.8 % (11.5-14.5); WBC 8.06 X1000 (4.8-10.8)
[2019-09-10 07:47] LABS: AGAP 9; BUN 4 mg/dL (8-22); CALCIUM 8.1 mg/dL (8.8-10.2); CHLORIDE 108 mmol/L (98-107); COSMO 274; CREATININE 0.7 mg/dL (0.7-1.2); ESTIMATED GFR > 60; GLUCOSE 90 mg/dL (70-104); POTASSIUM 3.8 mmol/L (3.5-5.1); SODIUM 139 mmol/L (136-145); TCO2 22 mmol/L (25-35)
[2019-09-10] MEDS: NS 1,000 ML IV SCH (08:00)
[2019-09-10] MEDS: CULTURELLE PO SCH ×2 (08:39→22:56)
--- NOTE | 2019-09-10 11:01 | PROGRESS NOTE ---
DATE: 09/10/2019 SUBJECTIVE: This patient seems to be feeling better today. I have stopped the IV fluids. His blood pressure has been more stable. His hemoglobin has been stable. Also after 2 PRBCs, I will monitor this patient closely. OBJECTIVE: Vital Signs: Temperature 97.7 degrees, pulse 79, respiratory rate 16, blood pressure 102/69, oxygen saturation 94% on room air. HEENT: Head normocephalic. No trauma. PERRLA. Neck: Supple. No JVD. No masses. Central trachea. Chest: Clear to auscultation. No wheezing. No rales. Abdomen: Soft. Some discomfort to palpation around the periumbilical area and suprapubic area. He has a suprapubic catheter and he is on bladder irrigation. No signs of active bleeding at this moment. The urine looks much better, is more clear. Extremities: No edema, no clubbing, no cyanosis. Neurological: The patient is awake and alert. He is oriented x3. No focal deficits. LABORATORY DATA: WBC 8, hemoglobin 8.6, hematocrit 26.8, platelets 233,000. Sodium 139, potassium 3.8, chloride 108, bicarbonate 22, BUN 4, creatinine 0.7, glucose 90, calcium 8.1. ASSESSMENT AND PLAN: 1. Severe hematuria status post cystoscopic examination, clot irrigation and fulguration of bleeding areas. Biopsies were taken. He seems to be better. Urology department following this patient. Continue with bladder irrigation. 2. History of rheumatoid arthritis. Aware. 3. Hyperglycemia, no diabetes, probably due to stress. 4. Neurogenic bladder. Aware. 5. Bacteremia due to Escherichia coli. That is the reason why he was hospitalized a few days ago. Continue with same management. 6. Recent discharge due to sepsis due to pneumonia and bacteremia. Aware. He is better. 7. Hypoxemic respiratory failure due to pneumonia on previous admission. He is not hypoxemic. 8. Anemia, likely post hemorrhagic, status post 2 PRBCs, better. cc: Liam Silva MD
[2019-09-10] MEDS: MELATONIN PO SCH (22:56)
[2019-09-11 06:47] LABS: BASO# 0.05 X1000 (0.0-0.2); BASO% 0.5 % (0.0-0.8); EOS# 0.51 X1000 (0.0-0.7); HEMATOCRIT 32.4 % (42.0-52.0); HEMOGLOBIN 10.5 g/dL (14.0-18.0); IMM GRAN# 0.02 X1000 (0.0-0.04); IMM GRAN% 0.2 % (0.0-0.5); LYMPH# 1.77 X1000 (1.2-3.4); LYMPH% 17.3 % (20.5-51.1); MCH 27.9 PG (27-31); MCHC 32.4 g/dL (33-37); MCV 85.9 FL (81-99); MONO# 0.49 X1000 (0.11-0.59); MONO% 4.8 % (1.7-9.3); MPV 11.2 FL (7.4-10.4); NEUT# 7.37 X1000 (1.4-6.5); NEUT% 72.2 % (42.2-75.2); PLT 308 X1000 (130-400); RBC 3.77 XMIL (4.7-6.1); RDW 14.7 % (11.5-14.5); WBC 10.21 X1000 (4.8-10.8)
[2019-09-11 07:03] LABS: AGAP 10; BUN 6 mg/dL (8-22); CALCIUM 9.1 mg/dL (8.8-10.2); CHLORIDE 102 mmol/L (98-107); COSMO 269; CREATININE 0.8 mg/dL (0.7-1.2); ESTIMATED GFR > 60; GLUCOSE 95 mg/dL (70-104); SODIUM 136 mmol/L (136-145); TCO2 24 mmol/L (25-35)
[2019-09-11] MEDS: CULTURELLE PO SCH ×2 (09:39→22:22)
[2019-09-11] MEDS: MAXIPIME 2 GM/NS 2 GM/100 ML IVPB IV SCH ×2 (11:48→22:22)
--- NOTE | 2019-09-11 14:35 | PROGRESS NOTE ---
DATE: 09/11/2019 SUBJECTIVE: The patient is feeling better. He is still getting bladder irrigation. Hemoglobin has been stable. OBJECTIVE: Vital signs: Temperature 97.6 degrees, pulse 95, respiratory rate 16, blood pressure 92/58, oxygen saturation 96 on room air. HEENT: Head normocephalic. No trauma. PERRLA. Neck: Supple. No JVD. No masses. Central trachea. Chest: Clear to auscultation. No wheezing. No rales. Abdomen: Soft. Some discomfort to palpation around the periumbilical area and suprapubic area. He has a suprapubic catheter and he is on bladder irrigation. No signs of active bleeding at this moment. The urine looks much better, a little bit pinkish today. Extremities: No edema. No clubbing. No cyanosis. Neurological: The patient is awake. He is alert. He is oriented. No focal deficits, but generalized weakness which is chronic. LABORATORY: WBC 10, hemoglobin 10.5, hematocrit 32.4, platelet 308,000. Sodium 136, potassium 4, chloride 102, bicarbonate 24, BUN 6, creatinine 0.8, glucose 95, calcium 9.1. ASSESSMENT AND PLAN: 1. Severe hematuria status post cystoscopic examination, clot irrigation, and fulguration of bleeding area. Biopsies were taken. He seems to be better. Urology department is following this patient. Continue with bladder irrigation. 2. History of rheumatoid arthritis. Aware. 3. Hyperglycemia. No diabetes. Probably related to stress. 4. Neurogenic bladder. Aware. 5. Bacteremia due to Escherichia coli during previous admission. Continue with IV treatment. 6. Recent discharge due to sepsis due to pneumonia and bacteremia. Aware. He is better. 7. Hypoxemic respiratory failure due to pneumonia on previous admission. Aware. He is not hypoxemic. 8. Anemia, likely post hemorrhagic. Status post 2 PRBCs. This is much better. cc: Liam Silva MD
[2019-09-11] MEDS: MELATONIN PO SCH (22:23)
[2019-09-12 07:11] LABS: HEMATOCRIT 35.7 % (42.0-52.0); HEMOGLOBIN 11.9 g/dL (14.0-18.0)
[2019-09-12 07:50] VITALS: BP 90/54
--- NOTE | 2019-09-13 10:42 | DISCHARGE SUMMARY ---
ADMISSION DATE: 09/07/2019 DISCHARGE DATE: 09/12/2019 DISCHARGE DIAGNOSES: 1. Severe hematuria status post cystoscopic examination, clot irrigation and fulguration of the bleeding area, biopsies were taken. 2. History of rheumatoid arthritis. 3. Hyperglycemia, no diabetes. 4. Neurogenic bladder. 5. Bacteremia due to Escherichia coli during previous admission. 6. Recently discharged due to sepsis and due to pneumonia and bacteremia. 7. Hypoxemic respiratory failure due to pneumonia on previous hospitalization. 8. Anemia, likely post hemorrhagic. Status post 2 PRBCs, better. HOSPITAL COURSE: A 44-year-old male with past medical history of neurogenic bladder with a chronic indwelling suprapubic catheter, recently discharged on 09/04/2019 due to sepsis due to pneumonia and bacteremia, hypoxemic respiratory failure due to pneumonia, pneumonia, bacteremia due to Escherichia coli, neurogenic bladder status post exchange of suprapubic tube and irrigation of the clot due to malposition of the suprapubic tube and gross hematuria, rheumatoid arthritis. He went home with IV Rocephin for Escherichia coli bacteremia and he will follow up with Dr. Roberto on 09/14/2019 after completing 14 days of treatment. The patient came and was admitted again on 09/07/2019 due to severe hematuria noted the same day while he was taking a shower. He estimates about just over a complete urinal full, about 500 mL of lidia blood and clots were passed. He also complained of intermittent suprapubic sharp crampy pain as the blood drained out of the suprapubic catheter and around the suprapubic catheter. He also complained of some vomiting, which was non-bloody, no coffee-ground emesis. He took about 400 mg of Motrin the night before. Otherwise, he denied any bleeding from any other place. He had one loose bowel movement the day of admission. He feels weak and thirsty and lightheaded. He was admitted. He was evaluated by urology department who decided to go ahead and do a procedure on 09/08/2019. They did a cystoscopic with extensive clot evacuation, fulguration of bleeding with bladder biopsies. Then this patient went to the regular room and he had some bladder irrigation continuously. The urine passed from being clots and bloody to clear and actually without any kind of signs of bleeding. This patient is feeling much better. Dr. Marquez evaluated this patient today and decided to discharge and he basically states that he will follow up this patient as an outpatient, so he has an appointment on 09/15/2019 at the urology clinic. I will continue with his home medication including the antibiotics that he has been getting, ceftriaxone, and he will need to follow up with Dr. Roberto on 09/14/2019. Everything has been set up already for the patient. He refused to go to a rehab center. PHYSICAL EXAMINATION: Vital Signs: Temperature 98.2 degrees, pulse 97, respiratory rate 16, blood pressure 90/54, oxygen saturation 96 on room air. HEENT: Head normocephalic. No trauma. PERRLA. Neck: Supple no JVD. No masses. Central trachea. Chest: Clear to auscultation. No wheezing. No rales. Abdomen: Soft, nontender. Suprapubic catheter in place. No signs of bleeding. Extremities: No edema, no clubbing, no cyanosis. Neurological: Awake and oriented x3. No focal deficits. LABORATORY: Hemoglobin 11.9, hematocrit 35.7. BMP from yesterday, sodium 136, potassium 4, chloride 102, bicarbonate 24, BUN 6, creatinine 0.8, glucose 95, calcium 9.1. DISCHARGE MEDICATIONS: Acetaminophen 650 P mg p.o. q.6 hours as needed for fever, vitamin D3 5000 units p.o. daily, vitamin B12 1000 mcg p.o. daily, Culturelle 1 tablet p.o. b.i.d., melatonin 20 mg p.o. at bedtime, Urogesic Blue 1 tablet p.o. daily, Myrbetriq 1 tablet p.o. daily; tizanidine 6 mg p.o. t.i.d., ceftriaxone IV daily. I believe the end of the treatment will be on 09/14/2018 and he will be seen by Dr. Roberto at that time. TIME ATTESTATION: Time discharging this patient 25 minutes. cc: Liam Silva MD
== END 2019-09-12 09:41 | disposition home health service (06) | DRG 670 ==
LOC: SUPCPDRO → ED 13:22 → SUATTDRO 20:21 → 4N 20:21
PROVIDERS: ATTEND Internal Medicine